=== PATIENT | female | born 1965 | race Caucasian/White ===

== ENCOUNTER → 2019-06-21 11:24 | Outpatient (CLI) | payer OTHER, SELFPAY ==
--- NOTE | ~2019-06-21 | US_ITS ---
US retroperitoneal comp 06/21/2019 11:50 Procedure: Realtime transabdominal ultrasound of the kidneys and bladder. Indication: Bilateral flank pain. History of polycystic kidneys. Comparison: No prior studies for comparison. Findings: Renal echotexture is heterogeneous bilaterally with innumerable bilateral cysts, largest on the right measuring 5.2 cm in largest on the left measuring 2.2 cm. No solid masses or hydronephrosi s identified. Bladder is unremarkable. The right kidney measures 8.8 cm and left kidney measures 11.9 cm. Bladder within normal limits. Impression: 1: Innumerable bilateral renal cysts, consistent with polycystic kidneys. Reviewed, dictated and finalized at location B. O RECORDER Impression: 1: Innumerable bilateral renal cysts, consistent with polycystic kidneys.
== END ==
DX: N20.0 Calculus of kidney (principal); N28.1 Cyst of kidney, acquired
CPT/HCPCS: 76770

== ENCOUNTER 2020-08-28 08:03 | Outpatient (CLI) | payer OTHER, SELFPAY ==
--- NOTE | ~2020-08-28 | MM_ITS ---
EXAMINATION: MM screening [facility] BI w chris HISTORY: Screening mammogram TECHNIQUE: Craniocaudal and mediolateral oblique 3-D tomosynthesis images were obtained and synthetic 2-D images were generated. CAD analysis was submitted and interpreted. COMPARISON: 07/12/2018 bilateral digital screening mammogram 06/19/2017 diagnostic right digital mammogram 06/15/2017, 05/14/2016 bilateral digital screening mammogram examinations BREAST PARENCHYMAL COMPOSITION: The breasts are extremely dense, which lowers the sensitivity of mamm ography. FINDINGS: There is no evidence of suspicious mass, calcification, or architectural distortion to sugg est malignancy in either breast. There has been no suspicious interval change. IMPRESSION: 1. No mammographic evidence of malignancy. 2. Recommend routine screening mammography in one year. BI-RADS Category 1: Negative Reviewed, dictated and finalized at location A.
== END 2020-08-28 08:04 | disposition home or self-care (01) ==
LOC: ANHIMG 08:07
PROVIDERS: Visit Provider Family Medicine
DX: Z12.31 Encounter for screening mammogram for malignant neoplasm of breast (principal)
CPT/HCPCS: 77063; 77067

== ENCOUNTER 2020-11-28 11:23 | Emergency (ER) | payer OTHER, SELFPAY ==
--- NOTE | ~2020-11-28 | XR_ITS ---
EXAMINATION: XR abdomen/kub 1V INDICATION: Right-sided flank pain TECHNIQUE: Supine view of the abdomen is obtained. COMPARISON: None FINDINGS: There are at least six stones in the mid and lower left kidney which measure up to 6 mm. Th ere are punctate stones of the right kidney. No definite stones are identified along the expected cou rses of the ureters or within the urinary bladder. Phleboliths are noted in the right pelvis. The bow el gas pattern is normal. There is mild osteoarthritis of the hips. IMPRESSION: 1. Bilateral nephrolithiasis. Reviewed, dictated and finalized at location B.
[2020-11-28 11:32] VITALS: BP 167/77; PULSE 68; RESP 16; TEMP 36.4; O2SAT 98
[2020-11-28 11:41] VITALS: BP 167/77; PULSE 68; RESP 16; TEMP 36.4; O2SAT 98
[2020-11-28] MEDS: PROMETHAZINE HCL 25 MG/ML AMPUL IM (12:26)
--- NOTE | 2020-11-28 12:26 | ED.ABDPAIN ---
HPI - Abdominal Pain General Chief Complaint: Abdominal Pain Stated Complaint: ABD PAIN/BACK PAIN/VOMITING Time Seen by Provider: 11/28/20 11:54 Source: patient and RN notes reviewed Mode of arrival: ambulatory Limitations: no limitations History of Present Illness HPI narrative: Patient presents today complaining of right lower quadrant pain since last night that now moved to the right flank. She has also been vomiting since 330 this morning multiple times. Patient has taken Zofran at 330 this morning and again at 9 AM. Reports some mild short-term relief, but still vomits several times in between doses. History of kidney stones and liver transplant. Patient spoke to her community health program coordinator, who did not want her to go to the ER, and suggested she come to urgent care instead. Denies fever or diarrhea. MD elicited complaint: abdominal pain and flank pain Related Data Home Medications Medication Instructions Recorded Confirmed folic acid 11/28/20 levothyroxine 11/28/20 tacrolimus 11/28/20 Allergies Allergy/AdvReac Type Severity Reaction Status Date / Time latex Allergy Intermediate ITCHING, Verified 09/15/16 10:11 SCABBING Penicillins Allergy Intermediate Verified 09/15/16 10:11 Review of Systems Review of Systems: CONSTITUTIONAL: Denies body aches, fever, chills, or sweats. EYES: Denies visual changes, redness, or discharge. ENT: Denies rhinorrhea, congestion, sore throat, or otalgia. CARDIOVASCULAR: Denies chest pain, palpitations, or edema. RESPIRATORY: Denies cough or dyspnea. GASTROINTESTINAL: Denies diarrhea.+ Abdominal pain, nausea, vomiting GENITOURINARY: Denies dysuria or hematuria. SKIN: Denies rash, itching, or wounds. MUSCULOSKELETAL: Denies back pain, joint pain, or myalgia. NEUROLOGIC: Denies headache, numbness, tingling, or weakness. PSYCH: Denies depression or anxiety. [facility] Past Medical History Medical History (Updated 11/28/20 @ 13:09 by Lottie Limon, JL, ) History of kidney stones History of sepsis Surgical History Surgical History (Updated 11/28/20 @ 13:09 by Lottie Limon, JL, ) Liver transplant recipient Comments At time of signature, I have reviewed and agree with nursing past medical, surgical, social and family history unless otherwise noted. Please see nursing chart for further information. There is no relevant family history pertinent to the presenting complaint Exam Narrative: GENERAL: Chronically ill-appearing, well-nourished, and in no acute distress. HEAD: Normocephalic, atraumatic. EYES: EOMI. No redness or drainage. Conjunctivae normal. ENT: Mucous membranes pink and moist. Throat normal. Uvula midline. NECK: Normal AROM. Supple. No lymphadenopathy. CHEST: No respiratory distress. Clear to auscultation. HEART: Regular rate and rhythm. No murmur appreciated. Normal peripheral pulses. ABDOMEN: Soft, nondistended, normal active bowel sounds. + Right lower quadrant abdominal tenderness. Left upper quadrant tenderness.-CVAT. Patient vomits during exam. MUSCULOSKELETAL: No bony tenderness. EXTREMITIES: Normal range of motion. No edema. SKIN: Warm, dry, no rash. Capillary refill normal. Normal skin turgor. NEURO: No focal deficits. Alert and oriented x3. Gait steady. PSYCH: Normal affect. No signs of depression or anxiety. Course Course Emergency Course: Patient states she does have improved nausea and pain after promethazine. Vital Signs Vital signs: Vital Signs Temperature 97.5 F L 11/28/20 11:32 Pulse Rate 68 11/28/20 11:32 Respiratory Rate 16 11/28/20 11:32 Blood Pressure 167/77 H 11/28/20 11:32 Pulse Oximetry 98 11/28/20 11:32 Temperature 97.5 F L 11/28/20 11:41 Pulse Rate 68 11/28/20 11:41 Respiratory Rate 16 11/28/20 11:41 Blood Pressure 167/77 H 11/28/20 11:41 Pulse Oximetry 98 11/28/20 11:41 Transfer Transfered to: [place] Transportation: Other (Private vehicle) Transfer rati
== END 2020-11-28 13:11 | disposition short-term general hospital (02) ==
PROVIDERS: Emergency Provider Nurse Practitioner; PCP Family Medicine
DX: R10.31 Right lower quadrant pain (principal); R11.2 Nausea with vomiting, unspecified
CPT/HCPCS: 74018; 81003; 87086; 87088; 96372; 99213; G0463; J2550

== ENCOUNTER 2020-11-28 13:29 | Emergency (ER) | payer OTHER, SELFPAY ==
--- NOTE | ~2020-11-28 | CT_ITS ---
EXAMINATION: CT abdomen pelvis wo con DATE: 11/28/2020 20:11 INDICATION: Right lower abdominal pain. TECHNIQUE: Computed tomography (CT) of the abdomen and pelvis was performed without intravenous contr ast. Automated exposure control and iterative reconstruction technique were employed. The dose-length product was 332.30 mGy-cm. COMPARISON: None FINDINGS: Minimal atelectasis at the posterior sulcus of the left lower lobe. Heart size is normal. No pericard ial or pleural effusion. Prominent dilation of the common bile duct which measures up to 1.6 cm in ma ximal diameter. Cholecystectomy clips the gallbladder fossa. No definitive intrahepatic biliary ducta l dilation. Spleen, pancreas and bilateral adrenal glands are normal. Multiple bilateral renal cysts including several hyperdense proteinaceous/hemorrhagic cyst consistent with autosomal dominant polycy stic kidney disease. Bilateral nephrolithiasis with a few stones in both kidneys, the largest measuri ng up to 5-6 mm. There is an obstructing 3-4 mm stone in the distal right ureter approximately 3 cm f rom the ureterovesicular junction. There is mild right hydroureteronephrosis. Bladder, uterus and bertha ateral adnexa are unremarkable. There are few scattered colonic diverticula without adjacent inflamma tory change to suggest diverticulitis. Small bowel and appendix are normal. Small amount of likely ph ysiologic free fluid in the pelvis. No pathologically enlarged abdominal or pelvic lymphadenopathy. M ild thoracolumbar spondylosis. Right supra-acetabular bone island. IMPRESSION: 1. Bilateral nephrolithiasis with 3 to 4 mm distal right ureteral stone with mild right hydroureteron ephrosis. 2. Multiple simple and complex proteinaceous/hemorrhagic cysts at both kidneys consistent with autoso mal dominant polycystic kidney disease. 3. Common bile duct dilated to 15 mm which could be related to prior cholecystectomy and comparison m leena but would correlate with liver function tests and if clinically indicated could consider MRCP for further evaluation. Reviewed, dictated and finalized at location A. IMPRESSION: 1. Bilateral nephrolithiasis with 3 to 4 mm distal right ureteral stone with mi ld right hydroureteronephrosis. 2. Multiple simple and complex proteinaceous/hemorrhagic cysts at both kidneys consistent with autosomal dominant polycystic kidney disease. 3. Common bile duct dilated to 15 mm which could be related to prior cholecyste ctomy and comparison made but would correlate with liver function tests and if clinically indicated could consider MRCP for further evaluation.
[2020-11-28 13:42] VITALS: BP 167/91; PULSE 65; RESP 16; TEMP 36.6; O2SAT 100
[2020-11-28 14:00] LABS: Basophils Percent Auto 0.3 % (0.2-1.2); Eosinophils Percent Auto 0.1 % (0-4.4); Hematocrit 37.6 % (37.0-47.0); Hemoglobin 12.3 g/dL (12.0-15.0); Immature Granulocyte Absolute 0.05 K/mm3 (0.00-0.031); Immature Granulocyte Percent A 0.6 % (0-0.5); Lymphocytes Absolute Auto 0.72 K/mm3 (0.9-3.2); Mean Corpuscular HGB Conc 32.7 g/dl (32-36); Mean Corpuscular Hemoglobin 29.4 pg (26-34); Monocytes Absolute Auto 0.3 K/mm3 (0.1-0.6); Monocytes Percent Auto 2.8 % (2.6-8.5); Neutrophils Percent Auto 88.2 % (45.5-73.1); Platelet Count Result 136 k/mm3 (150-375); Red Blood Count 4.18 M/mm3 (4.2-5.4); Red Cell Distribution Width 11.9 % (11.5-14.5)
[2020-11-28 14:09] LABS: Alanine Aminotransferase 36 U/L (4-35); Alkaline Phosphatase 71 U/L (38-126); Anion Gap 12 mmol/L (8-16); Aspartate Amino Transferase 33 U/L (14-36); Bilirubin,Total 0.6 mg/dL (0.2-1.3); Blood Urea Nitrogen 36 mg/dL (7-17); Calcium 9.9 mg/dL (8.4-10.2); Carbon Dioxide 24 mmol/L (22-30); Chloride 100 mmol/L (98-107); Estimated CRCL calculation 24 ml/min; Estimated Glomerular Filt Rate 25; Glucose 123 mg/dL (65-110); Lipase 150 U/L (23-300); Potassium 4.6 mmol/L (3.4-5.0); Sodium 136 mmol/L (137-145)
[2020-11-28 19:26] VITALS: BP 133/99; PULSE 79; RESP 18; TEMP 37.3; O2SAT 98
--- NOTE | 2020-11-28 19:45 | ED.ABDPAIN ---
HPI - Abdominal Pain General Chief Complaint: Abdominal Pain Stated Complaint: abdominal pain Time Seen by Provider: 11/28/20 19:00 Source: patient and RN notes reviewed Mode of arrival: ambulatory Limitations: no limitations History of Present Illness HPI narrative: This is 54 year old female with history of polycystic kidney disease and liver transplant who presents for evaluation of right lower abdominal pain. She developed pain last night, and her pain has been constant and gradually worsening. She developed nausea and vomiting 3 hours after her onset of pain. She has not taken anything for her pain. She thinks it is possible that she has a urinary tract infection. She reports intermittent suprapubic sharp pain and possible dysuria. She denies fever or chills. Related Data Home Medications Medication Instructions Recorded Confirmed folic acid 11/28/20 levothyroxine 11/28/20 tacrolimus 11/28/20 Allergies Allergy/AdvReac Type Severity Reaction Status Date / Time latex Allergy Intermediate ITCHING, Verified 09/15/16 10:11 SCABBING Penicillins Allergy Intermediate Verified 09/15/16 10:11 Review of Systems Review of Systems: All systems reviewed & are unremarkable except as noted in HPI and below PMFSH Past Medical History Medical History History of kidney stones History of sepsis Surgical History Surgical History Liver transplant recipient Social History Social History Smoking status: Never smoker Exam Const: General: no acute distress and alert Orientation/consciousness: patient oriented x3 Eyes: EOM: EOMs intact bilaterally Chest: Chest palpation & inspection: normal inspection of the chest Resp: Effort & Inspection: normal respiratory effort and no retractions Auscultation: clear to auscultation bilaterally Cardio: Rate: regular rate Rhythm: regular rhythm Heart sounds: no murmurs GI: GI Palp: Yes Soft to palpation, Yes Tenderness to palpation present (GI) and No Guarding due to palpation present (GI) Auscultation: normal bowel sounds Back/Spine/Pelvis: Back: no CVA tenderness Skin: General skin exam: normal color Rashes: no rashes Neuro: General: patient oriented x3, moves all extremities and CN's II-XI intact bilaterally Psych: Mental Status: mental status grossly normal Affect: normal affect Course Reevaluation(s) Reevaluation #1: I have discussed with patient CT showing distal right ureteral stone. She reports history of multiple kidney stones in which she has been able to pass. Her pain has improved. She states she is comfortable with discharge home to pass stone. Date: 11/28/20 Time: 21:00 Vital Signs Vital signs: Vital Signs Temperature 97.9 F 11/28/20 13:42 Pulse Rate 65 11/28/20 13:42 Respiratory Rate 16 11/28/20 13:42 Blood Pressure 167/91 H 11/28/20 13:42 Pulse Oximetry 100 11/28/20 13:42 Temperature 99.2 F 11/28/20 19:26 Pulse Rate 71 11/28/20 20:33 Respiratory Rate 20 11/28/20 20:33 Blood Pressure 159/84 H 11/28/20 20:33 Pulse Oximetry 100 11/28/20 20:33 MDM - Abdominal Pain Lab Data Attestation: I reviewed the patient's lab results. Result diagrams: 11/28/20 13:52 11/28/20 13:52 Labs: Lab Results 11/28/20 11/28/20 11/28/20 Range/Units 13:52 13:52 19:35 WBC 9.0 (4.5-10.0) K/mm3 RBC 4.18 L (4.2-5.4) M/mm3 Hgb 12.3 (12.0-15.0) g/dL Hct 37.6 (37.0-47.0) % MCV 90.0 (80-100) fl MCH 29.4 (26-34) pg MCHC 32.7 (32-36) g/dl RDW 11.9 (11.5-14.5) % Plt Count 136 L (150-375) k/mm3 MPV 9.0 (7.4-10.4) fl Immature Gran % (Auto) 0.6 H (0-0.5) % Neut % (Auto) 88.2 H (45.5-73.1) % Lymph % (Auto) 8.0 L (18.3-44.2) % [place] % (Auto) 2.8 (2.6-8.5)
[2020-11-28 19:48] LABS: Add Urine Microscopic? YES; Appearance Urine Clear (Clear); Bilirubin Urine Negative (Negative); Blood Urine 2+ (Negative); Color Urine Yellow (Yellow); Glucose Urine UA Negative (Negative); Ketones Urine 1+ mg/dL (Negative); Leukocyte Esterase Ur Negative LEU/UL (Negative); Mucus Urine Rare /lpf; Nitrate Urine Negative (Negative); Protein Urine 2+ mg/dL (Negative); Specific Grav Ur 1.014 (1.001-1.035); Squamous Epithelial Cell Urine Rare /hpf (Few); Urobilinogen Urine Negative mg/dL (<2.0); WBC Urine 0-3 /hpf
[2020-11-28] MEDS: SODIUM CHLORIDE 0.9% IV 1,000 ML 999 ML IV CONT (19:59)
[2020-11-28] MEDS: ONDANSETRON INJ 4 MG/2 ML VIAL IV PUSH (19:59)
[2020-11-28] MEDS: MORPHINE SULFATE (*CRX) 4 MG/ML INJ IV PUSH (20:00)
[2020-11-28 20:33] VITALS: BP 159/84; PULSE 71; RESP 20; O2SAT 100
[2020-11-28] MEDS: TAMSULOSIN HCL 0.4 MG CAPSULE PO (21:49)
== END 2020-11-28 22:14 | disposition home or self-care (01) ==
PROVIDERS: Emergency Medicine; Emergency Provider General Practice; PCP Family Medicine
DX: N13.2 Hydronephrosis with renal and ureteral calculous obstruction (principal); Q61.2 Polycystic kidney, adult type; Z94.4 Liver transplant status; Z87.442 Personal history of urinary calculi
CPT/HCPCS: 36415; 74018; 74176; 80053; 81001; 81003; 81025; 83690; 85025; 87086; 87088; 96361; 96372; 96374; 96375; 99284; A9270; J2270; J2405; J2550; J7030

== ENCOUNTER 2020-12-16 20:43 | Emergency (ER) | payer OTHER, SELFPAY ==
[2020-12-16] VITALS (8 sets, daily range): BP systolic 121–131; BP diastolic 62–82; PULSE 60–70; RESP 14–19; TEMP 36.5–36.6; O2SAT 97–100
--- NOTE | ~2020-12-16 | CT_ITS ---
EXAMINATION: CT abdomen pelvis wo con DATE: 12/16/2020 21:37 INDICATION: Left-sided flank pain TECHNIQUE: Computed tomography (CT) of the abdomen and pelvis was performed without intravenous contr ast. The dose-length product (DLP) was 179.64 mGy-cm. Automated exposure control and iterative recons truction technique were employed. COMPARISON: 11/28/2020 FINDINGS: Minimal dependent atelectasis is present in the lung bases. The heart size is normal. The l iver, spleen, pancreas, and adrenal glands are normal. The gallbladder is surgically absent. There is mild enlargement of the common bile duct and central intrahepatic ducts which is likely due to post cholecystectomy state. Nonobstructing stones of the right kidney measure up to 7 mm. Nonobstructing s tones of the left kidney measure up to 8 mm. There are multiple mixed attenuation cystic lesions of t he kidneys with fluid and, hemorrhagic, and soft tissue density, consistent with simple, hemorrhagic, and proteinaceous cysts. There is no hydronephrosis or hydroureter. The previously described right d istal ureteral stone is no longer evident, consistent with interval passage or treatment. The appendi x is normal. No pathologically enlarged abdominal or pelvic lymph nodes are identified. There is no f ree intraperitoneal gas or evidence of bowel obstruction. There is mild lumbar spondylosis. IMPRESSION: 1. Nonobstructing bilateral nephrolithiasis. 2. Findings consistent with autosomal dominant polycystic kidney disease. Reviewed, dictated and finalized at location A.
--- NOTE | 2020-12-16 21:18 | ED.ABDPAIN ---
HPI - Abdominal Pain General Chief Complaint: Abdominal Pain Stated Complaint: left side flank pain Time Seen by Provider: 12/16/20 21:07 Source: RN notes reviewed History of Present Illness HPI narrative: Patient presents emergency department from home for left-sided flank pain. Patient states pain began approximately 4 hours ago pain is located left flank and radiates around to the left side of the abdomen described as sharp and stabbing in nature associate with nausea. Patient states he did take a Zofran at home but not taking pain medication states she has a history of kidney stones she denies any fevers or chills chest pain shortness of breath or any other symptoms she does have a history of polycystic kidney disease and liver transfer Related Data Home Medications Medication Instructions Recorded Confirmed folic acid 11/28/20 levothyroxine 11/28/20 tacrolimus 11/28/20 Allergies Allergy/AdvReac Type Severity Reaction Status Date / Time latex Allergy Intermediate ITCHING, Verified 09/15/16 10:11 SCABBING Penicillins Allergy Intermediate Unknown Verified 12/16/20 21:02 amoxicillin Allergy Unknown Verified 12/16/20 21:02 Review of Systems Review of Systems: Gen.: Denies fevers or chills ENT: Denies congestion Respiratory: Denies shortness of breath or cough CV: Denies chest pain or palpitations GI: See HPI denies burning, urgency, frequency or hematuria Musculoskeletal: Denies back pain or muscle pain Neuro: Denies numbness, tingling, weakness or focal weakness Skin: Denies rash Except as documented, all other systems reviewed and negative PMFSH Past Medical History Medical History History of kidney stones History of sepsis Surgical History Surgical History Liver transplant recipient Social History Social History Smoking status: Never smoker Gender identity (if verbalized by the patient): Female Exam Narrative: APPEARANCE: No acute distress, nontoxic, resting in bed HEENT: Normocephalic, atraumatic, OMM RESPIRATORY: No respiratory distress, clear to auscultation bilaterally with no rhonchi wheezing or rales CARDIOVASCULAR: RRR s murmur ABDOMINAL: Soft nondistended tender palpation left lower quadrant left lower quadrant no tenderness right upper quadrant right lower quadrant rebound or guarding, left flank tenderness MUSCULOSKELETAl: Moves all extremities. No clubbing, cyanosis or edema. NEURO: Awake and alert. Following commands, speech normal, no focal deficits SKIN:: Warm, dry. Normal Color PSYCHIATRIC: Normal affect/mood Course Course Emergency Course: Reviewed old records patient's current creatinine and platelets are consistent with prior Discussed with patient her retro-orbital UTI with the patient being a transplant patient will start on antibiotic she states that she has been on Cipro before and this approved by her transplant team based on her creatinine clearance will do 250 daily Patient states that they are feeling much better at this time. States abdominal pain has improved.. Repeat abdominal exam shows the patient's abdomen to be soft with no surgical abdomen present . discussed with patient results of workup and diagnosis. Discussed need for follow-up with primary care physician, reasons to return to the emergency department in proper use of medication. Patient understands and agrees to current treatment plan Vital Signs Vital signs: Vital Signs Temperature 97.8 F 12/16/20 20:56 Pulse Rate 70 12/16/20 20:56 Respiratory Rate 16 12/16/20 20:56 Blood Pressure 131/82 12/16/20 20:56 Pulse Oximetry 98 12/16/20 20:56 Temperature 97.8 F 12/16/20 20:56 Pulse Rate 64 12/16/20 22:01 Respiratory Rate 17 12/16/20 22:01 Blood Pressure 124/67 12/16/20 22:01 Pulse Oximetry 97
--- NOTE | 2020-12-16 21:31 | PC.NURSE ---
pt to ED c/o left flank pain wrapping around to abd. hx of kidney stones.
[2020-12-16 21:34] LABS: Add Urine Microscopic? YES; Appearance Urine Clear (Clear); Bacteria Urine Trace /hpf; Bilirubin Urine Negative (Negative); Blood Urine 2+ (Negative); Color Urine Yellow (Yellow); Glucose Urine UA Negative (Negative); Ketones Urine Negative (Negative); Leukocyte Esterase Ur Trace LEU/UL (Negative); Mucus Urine Rare /lpf; Nitrate Urine Negative (Negative); Protein Urine 1+ mg/dL (Negative); Squamous Epithelial Cell Urine Few /hpf (Few); Urobilinogen Urine Negative mg/dL (<2.0)
[2020-12-16 21:52] LABS: Basophils Percent Auto 0.5 % (0.2-1.2); Eosinophils Absolute Auto 0.2 K/mm3 (0-0.3); Eosinophils Percent Auto 1.8 % (0-4.4); Hematocrit 33.5 % (37.0-47.0); Hemoglobin 11.2 g/dL (12.0-15.0); Immature Granulocyte Absolute 0.03 K/mm3 (0.00-0.031); Immature Granulocyte Percent A 0.4 % (0-0.5); Lymphocytes Absolute Auto 1.31 K/mm3 (0.9-3.2); Lymphocytes Percent Auto 15.8 % (18.3-44.2); Mean Corpuscular HGB Conc 33.4 g/dl (32-36); Mean Corpuscular Hemoglobin 30.2 pg (26-34); Mean Corpuscular Volume 90.3 fl (80-100); Mean Platelet Volume 8.5 fl (7.4-10.4); Monocytes Absolute Auto 0.4 K/mm3 (0.1-0.6); Monocytes Percent Auto 4.9 % (2.6-8.5); Neutrophils Absolute Auto 6.4 K/mm3 (1.3-6.7); Neutrophils Percent Auto 76.6 % (45.5-73.1); Platelet Count Result 135 k/mm3 (150-375); Red Blood Count 3.71 M/mm3 (4.2-5.4); Red Cell Distribution Width 11.9 % (11.5-14.5); White Blood Count 8.3 K/mm3 (4.5-10.0)
[2020-12-16 22:04] LABS: Anion Gap 9 mmol/L (8-16); Blood Urea Nitrogen 44 mg/dL (7-17); Calcium 9.1 mg/dL (8.4-10.2); Carbon Dioxide 22 mmol/L (22-30); Chloride 106 mmol/L (98-107); Estimated CRCL calculation 25 ml/min; Estimated Glomerular Filt Rate 26; Glucose 101 mg/dL (65-110); Potassium 4.3 mmol/L (3.4-5.0); Sodium 137 mmol/L (137-145)
[2020-12-16] MEDS: SODIUM CHLORIDE 0.9% IV 1,000 ML 999 ML IV CONT (22:08)
--- NOTE | 2020-12-16 22:08 | PC.NURSE ---
Pt declines pain medication at this time. currently rates pain 04/29. pt educated that she can request ordered pain med at any time.
[2020-12-16 22:59] LABS: Alanine Aminotransferase 23 U/L (4-35); Albumin Level 4.5 g/dL (3.5-5.1); Alkaline Phosphatase 60 U/L (38-126); Aspartate Amino Transferase 27 U/L (14-36); Bilirubin,Total 0.6 mg/dL (0.2-1.3); Lipase 178 U/L (23-300)
[2020-12-16] MEDS: CIPROFLOXACIN 250 MG TABLET PO (23:32)
== END 2020-12-16 23:40 | disposition home or self-care (01) ==
PROVIDERS: Emergency Provider Emergency Medicine; PCP Family Medicine
DX: N39.0 Urinary tract infection, site not specified (principal); R10.32 Left lower quadrant pain; Q61.3 Polycystic kidney, unspecified; Z94.4 Liver transplant status; Z87.442 Personal history of urinary calculi; N20.0 Calculus of kidney
CPT/HCPCS: 36415; 74176; 80048; 80076; 81001; 81025; 83690; 85025; 96360; 99284; A9270; J7030

== ENCOUNTER 2021-09-02 07:49 | Outpatient (CLI) | payer OTHER, SELFPAY ==
--- NOTE | ~2021-09-02 | MM_ITS ---
EXAMINATION: MM screening [facility] BI w chris HISTORY: Screening mammogram TECHNIQUE: Craniocaudal and mediolateral oblique 3-D tomosynthesis images were obtained and synthetic 2-D images were generated. CAD analysis was submitted and interpreted. COMPARISON: 08/28/2020, 07/12/2018 BREAST PARENCHYMAL COMPOSITION: The breasts are extremely dense, which lowers the sensitivity of mamm ography. FINDINGS: There is no suspicious mass, calcification, or architectural distortion to suggest malignan cy in either breast. There has been no suspicious interval change. IMPRESSION: 1. No mammographic evidence of malignancy. 2. Recommend routine screening mammography in one year. BI-RADS Category 1: Negative Reviewed, dictated and finalized at location A.
== END 2021-09-02 07:50 | disposition home or self-care (01) ==
LOC: ANHIMG 07:51
PROVIDERS: PCP Family Medicine; Visit Provider Family Medicine
DX: Z12.31 Encounter for screening mammogram for malignant neoplasm of breast (principal)
CPT/HCPCS: 77063; 77067

== ENCOUNTER 2021-12-02 09:58 | Emergency (ER) | payer OTHER, SELFPAY ==
[2021-12-02] VITALS (19 sets, daily range): BP systolic 145–190; BP diastolic 71–85; PULSE 64–71; RESP 16–20; TEMP 37.1; O2SAT 93–100
--- NOTE | ~2021-12-02 | CT_ITS ---
EXAMINATION: CT abdomen pelvis wo con DATE: 12/02/2021 10:44 INDICATION: Nausea and vomiting. History of stones. TECHNIQUE: Computed tomography (CT) of the abdomen and pelvis was performed without intravenous contr ast. The dose-length product was 217.47 mGy-cm. Automated exposure control and iterative reconstructi on technique were employed. COMPARISON: CT dated 12/16/2020. FINDINGS: Lung bases are unremarkable. No significant pleural or pericardial effusion. Gallbladder is absent. There is enlargement of the common bile duct. There are innumerable bilateral renal cysts of varying density some of which are complex, compatible with adult polycystic kidney disease. There ar e nonobstructing bilateral renal stones. No acute osseous abnormality. Small bone island right ilium. The liver, spleen, pancreas, and adrenal glands are unremarkable. Nonobstructive bowel pattern. No f ree air or free fluid. No significant vascular abnormality. No lymphadenopathy. IMPRESSION: 1. Nonobstructing bilateral nephrolithiasis. 2: Autosomal dominant polycystic kidney disease.. Reviewed, dictated and finalized at location B.
--- NOTE | 2021-12-02 10:13 | ED.ABDPAIN ---
HPI - Abdominal Pain General Chief Complaint: Abdominal Pain Stated Complaint: possible kidney stones Time Seen by Provider: 12/02/21 09:59 Source: RN notes reviewed History of Present Illness HPI narrative: Patient presents emergency department from home for left flank pain. Patient states pain began suddenly at 6:30 AM this morning. The pain is located left flank and goes left side the abdomen described as sharp and stabbing. Associate with nausea vomiting. States she has a history of previous kidney stones and feels similar to prior. Denies any fevers or chills chest pain shortness of breath diarrhea or any other symptoms. States she not taking medication for the symptoms Related Data Home Medications Medication Instructions Recorded Confirmed folic acid 1 mg tablet 11/28/20 levothyroxine 50 mcg tablet 11/28/20 tacrolimus 1 mg capsule, 11/28/20 immediate-release Allergies Allergy/AdvReac Type Severity Reaction Status Date / Time latex Allergy Intermediate ITCHING, Verified 09/15/16 10:11 SCABBING Penicillins Allergy Intermediate Unknown Verified 12/16/20 21:02 amoxicillin Allergy Unknown Verified 12/16/20 21:02 Review of Systems Review of Systems: Gen.: Denies fevers or chills ENT: Denies congestion Respiratory: Denies shortness of breath or cough CV: Denies chest pain or palpitations GI: See HPI Musculoskeletal: Denies back pain or muscle pain Neuro: Denies numbness, tingling, weakness or focal weakness Skin: Denies rash Except as documented, all other systems reviewed and negative PMFSH Past Medical History Medical History History of kidney stones History of sepsis Surgical History Surgical History Liver transplant recipient Social History Social History Smoking status: Never smoker Gender identity (if verbalized by the patient): Female Exam Narrative: APPEARANCE: No acute distress, nontoxic, resting in bed HEENT: Normocephalic, atraumatic, OMM RESPIRATORY: No respiratory distress, clear to auscultation bilaterally with no rhonchi wheezing or rales CARDIOVASCULAR: RRR s murmur ABDOMINAL: Soft nondistended tender palpation left lower quadrant left lower quadrant no tenderness right upper quadrant right lower quadrant no rebound or guarding, left flank tenderness MUSCULOSKELETAl: Moves all extremities. No clubbing, cyanosis or edema. NEURO: Awake and alert. Following commands, speech normal, no focal deficits SKIN:: Warm, dry. Normal Color PSYCHIATRIC: Normal affect/mood Course Course Emergency Course: Patient states that they are feeling much better at this time. States abdominal pain has resolved. Repeat abdominal exam shows the patient's abdomen to be soft and nontender. Discussed with patient results of workup and diagnosis. Discussed need for follow-up with primary care physician, reasons to return to the emergency department in proper use of medication. Patient understands and agrees to current treatment plan Vital Signs Vital signs: Vital Signs Pulse Oximetry 98 12/02/21 10:03 Temperature 98.8 F 12/02/21 10:10 Pulse Rate 64 12/02/21 10:10 Respiratory Rate 20 12/02/21 10:10 Blood Pressure 161/85 H 12/02/21 13:32 Pulse Oximetry 93 12/02/21 14:00 Oxygen Delivery Room Air 12/02/21 10:10 MDM - Abdominal Pain MDM Narrative Medical decision making narrative: Patient's abdomen is soft without significant pain or signs of surgical abdomen on serial exams. Lab and x-ray evaluations are reviewed and patient is felt to be a reasonable candidate for outpatient management. Patient was instructed as to limitations of x-ray and laboratory evaluation and encouraged to return to ED or primary physician for repeat exam in 12 hours if continued or worsening pain Lab Data Result diagrams:
[2021-12-02 10:26] LABS: Basophils Percent Auto 0.5 % (0.2-1.2); Eosinophils Absolute Auto 0.2 K/mm3 (0-0.3); Eosinophils Percent Auto 1.9 % (0-4.4); Hematocrit 34.5 % (37.0-47.0); Hemoglobin 11.3 g/dL (12.0-15.0); Immature Granulocyte Absolute 0.02 K/mm3 (0.00-0.031); Immature Granulocyte Percent A 0.2 % (0-0.5); Lymphocytes Absolute Auto 1.14 K/mm3 (0.9-3.2); Lymphocytes Percent Auto 13.7 % (18.3-44.2); Mean Corpuscular HGB Conc 32.8 g/dl (32-36); Mean Corpuscular Hemoglobin 30.3 pg (26-34); Mean Corpuscular Volume 92.5 fl (80-100); Mean Platelet Volume 9.2 fl (7.4-10.4); Monocytes Absolute Auto 0.3 K/mm3 (0.1-0.6); Monocytes Percent Auto 4.1 % (2.6-8.5); Neutrophils Absolute Auto 6.6 K/mm3 (1.3-6.7); Neutrophils Percent Auto 79.6 % (45.5-73.1); Platelet Count Result 130 k/mm3 (150-375); Red Blood Count 3.73 M/mm3 (4.2-5.4); Red Cell Distribution Width 11.6 % (11.5-14.5); White Blood Count 8.3 K/mm3 (4.5-10.0)
[2021-12-02] MEDS: SODIUM CHLORIDE 0.9% IV 1,000 ML 999 ML IV CONT (10:26)
[2021-12-02] MEDS: KETOROLAC 30 MG/ML VIAL (*BKC) IV PUSH (10:27)
[2021-12-02] MEDS: ONDANSETRON INJ 4 MG/2 ML VIAL IV PUSH (10:27)
[2021-12-02 10:33] LABS: Appearance Urine Slightly Cloudy (Clear); Bilirubin Urine Negative (Negative); Blood Urine 2+ (Negative); Glucose Urine UA Negative (Negative); Ketones Urine Negative (Negative); Leukocyte Esterase Ur Negative LEU/UL (Negative); Nitrate Urine Negative (Negative); Protein Urine 2+ mg/dL (Negative); Specific Grav Ur 1.015 (1.001-1.035); Urobilinogen Urine 0.2 mg/dL (<2.0); pH Urine 5.5 (5.0-9.0)
[2021-12-02 10:35] LABS: Add Urine Microscopic? YES; Color Urine Light Yellow (Yellow)
[2021-12-02 10:36] LABS: Alanine Aminotransferase 19 U/L (6-35); Albumin Level 4.8 g/dL (3.5-5.1); Alkaline Phosphatase 57 U/L (38-126); Anion Gap 9 mmol/L (8-16); Aspartate Amino Transferase 23 U/L (14-36); Bilirubin,Total 0.5 mg/dL (0.2-1.3); Blood Urea Nitrogen 42 mg/dL (7-17); Calcium 9.4 mg/dL (8.4-10.2); Carbon Dioxide 29 mmol/L (22-30); Chloride 102 mmol/L (98-107); Estimated Glomerular Filt Rate 24; Glucose 118 mg/dL (65-110); Potassium 4.3 mmol/L (3.4-5.0); Sodium 140 mmol/L (137-145)
[2021-12-02 10:49] LABS: Mucus Urine Rare /lpf; Squamous Epithelial Cell Urine Rare /hpf (Few); WBC Urine 0-3 /hpf
--- NOTE | 2021-12-02 11:07 | PC.NURSE ---
Patient report received from EBAR Browning. All questions answered and care of patient assumed.
--- NOTE | 2021-12-02 14:09 | PC.NURSE ---
Patient PO challenged as per verbal order from Dr. Quiñones.
== END 2021-12-02 14:53 | disposition home or self-care (01) ==
PROVIDERS: Emergency Provider Emergency Medicine; PCP Family Medicine
DX: N18.9 Chronic kidney disease, unspecified (principal); R11.2 Nausea with vomiting, unspecified; R10.32 Left lower quadrant pain; Z87.442 Personal history of urinary calculi
CPT/HCPCS: 36415; 74176; 80053; 81001; 85025; 96374; 96375; 99284; J1885; J2405; J7030

== ENCOUNTER → 2022-10-09 13:54 | Outpatient (CLI) | payer OTHER, SELFPAY ==
--- NOTE | ~2022-10-09 | US_ITS ---
US retroperitoneal comp 10/09/2022 14:24 Procedure: Realtime transabdominal ultrasound of the kidneys and bladder. Indication: Acute renal insufficiency Comparison: 06/21/2019 Findings: Renal echotexture is normal bilaterally without hydronephrosis, contour deforming mass or r enal calculus. There are multiple bilateral renal cysts, largest on the right measuring 1.9 cm and on the left measuring 3.1 cm. The right kidney measures 10.7 cm and left kidney measures 14.2 cm. Blad brady within normal limits. Impression: 1: Bilateral renal cysts, consistent with polycystic kidney disease. Reviewed, dictated and finalized at location L. Impression: 1: Bilateral renal cysts, consistent with polycystic kidney disease.
== END ==
PROVIDERS: PCP Family Medicine
DX: N17.9 Acute kidney failure, unspecified (principal); N28.1 Cyst of kidney, acquired
CPT/HCPCS: 76770

== ENCOUNTER → 2022-10-15 14:37 | Outpatient (CLI) | payer OTHER, SELFPAY ==
--- NOTE | ~2022-10-15 | MR_ITS ---
MRA HEAD History: Aneurysm Technique: 3D time of flight MRA of the head is performed. Findings: The right and left distal vertebral arteries and the basilar and posterior cerebral arterie s are normal. Right and left distal internal carotid arteries and anterior and middle cerebral arteri es are normal. There is no aneurysm, stenosis, or occlusion. Impression: No occlusion, stenosis, or aneurysm. Reviewed, dictated and finalized at location . Impression: No occlusion, stenosis, or aneurysm.
== END ==
PROVIDERS: PCP Family Medicine
DX: I67.1 Cerebral aneurysm, nonruptured (principal)
CPT/HCPCS: 70544

== ENCOUNTER → 2022-11-01 07:35 | Outpatient (CLI) | payer OTHER, SELFPAY ==
--- NOTE | ~2022-11-01 | MR_ITS ---
EXAMINATION: MR abdomen wo con DATE: 11/01/2022 11:48 INDICATION: Polycystic kidney disease. TECHNIQUE: Magnetic resonance imaging (MRI) of the abdomen was performed without intravenous contrast . COMPARISON: CT abdomen and pelvis 12/02/2021 FINDINGS: There are trace pleural effusions. There is a 6 mm cyst in the liver. The gallbladder is absent. The common duct is normal and measures 10 mm. The spleen, pancreas, and adrenal glands are normal. There are innumerable cysts and hemorrhagic cysts in the kidneys measuring up to 3.1 cm on the left. Right kidney measures 7.9 x 15.3 x 7.8 cm. Left kidney measures 7.6 x 13.5 x 6.5 cm. There are no dilated l oops of bowel. There is a small volume of ascites. IMPRESSION: 1. Polycystic kidney disease. 2. Small volume of ascites. Reviewed, dictated and finalized at location E.
== END ==
DX: Q61.3 Polycystic kidney, unspecified (principal); R18.8 Other ascites
CPT/HCPCS: 74181

== ENCOUNTER 2022-12-03 14:20 | Outpatient (CLI) | payer OTHER, SELFPAY ==
--- NOTE | ~2022-12-03 | MM_ITS ---
EXAMINATION: MM screening mally BI w chris HISTORY: Screening TECHNIQUE: Craniocaudal and mediolateral oblique 3-D tomosynthesis images were obtained and synthetic 2-D images were generated. CAD analysis was submitted and interpreted. COMPARISON: Comparison to multiple prior studies sequentially, with oldest reviewed study dated 05/14. BREAST PARENCHYMAL COMPOSITION: The breasts are extremely dense, which lowers the sensitivity of mamm ography FINDINGS: There is no evidence of suspicious mass, calcification, or architectural distortion to sugg est malignancy in either breast. There has been no suspicious interval change. IMPRESSION: 1. No mammographic evidence of malignancy. 2. Recommend routine screening mammography in one year. BI-RADS Category 1: Negative Reviewed, dictated and finalized at location A.
== END 2022-12-03 14:21 | disposition home or self-care (01) ==
LOC: ANHIMG 14:22
PROVIDERS: PCP Family Medicine; Visit Provider Family Medicine
DX: Z12.31 Encounter for screening mammogram for malignant neoplasm of breast (principal)
CPT/HCPCS: 77063; 77067

== ENCOUNTER → 2023-01-16 11:19 | Outpatient (CLI) | payer OTHER, SELFPAY ==
--- NOTE | ~2023-01-16 | US_ITS ---
EXAMINATION: US transvaginal DATE: 01/16/2023 12:02 INDICATION: Ovarian cyst TECHNIQUE: Multiple endovaginal sonographic images of the pelvis were obtained. COMPARISON: None. FINDINGS: The uterus measures 6.4 x 3.3 x 4.2 cm. The endometrial complex measures 2 mm. The right ov monster measures 2.5 x 2.3 x 2.5 cm and contains a 2.2 cm cyst. The left ovary measures 1.8 x 1.7 x 1.4 c m. There is normal vascular flow in the ovaries. There is a small amount of free fluid in the pelvis and right adnexa. IMPRESSION: 1. 2.2 cm simple cyst of the right ovary. 2. Small volume of free fluid in the pelvis. Reviewed, dictated and finalized at location F.
== END ==
PROVIDERS: PCP Family Medicine
DX: N83.201 Unspecified ovarian cyst, right side (principal)
CPT/HCPCS: 76830

== ENCOUNTER 2023-07-31 09:39 | Outpatient (CLI) | payer OTHER, SELFPAY ==
--- NOTE | ~2023-07-31 | XR_ITS ---
EXAM: XR ankle LT min 3V DATE: 07/31/2023 09:53 HISTORY: M25.579 - Pain in unspecified ankle and joints of unspeci... . COMPARISON: None available. FINDINGS: Decreased mineralization. No fracture or dislocation. No lytic or blastic lesion. Joint sp aces are maintained. Plantar enthesopathy. No erosion or periosteal change. Soft tissues within yahaira l limits. IMPRESSION: Osteopenia. Plantar enthesopathy. Reviewed, dictated and finalized at location K.
== END 2023-07-31 09:40 ==
LOC: MICIMG 09:41
PROVIDERS: PCP Family Medicine; Visit Provider Physician Assistant
DX: M85.872 Other specified disorders of bone density and structure, left ankle and foot (principal); M77.32 Calcaneal spur, left foot
CPT/HCPCS: 73610

== ENCOUNTER 2023-12-07 13:27 | Outpatient (CLI) | payer OTHER, SELFPAY ==
--- NOTE | ~2023-12-07 | MM_ITS ---
EXAMINATION: MM screening mally BI w chris HISTORY: Screening TECHNIQUE: Craniocaudal and mediolateral oblique 3-D tomosynthesis images were obtained and synthetic 2-D images were generated. CAD analysis was submitted and interpreted. COMPARISON: Comparison to multiple prior studies sequentially, with oldest reviewed study dated 06/15. BREAST PARENCHYMAL COMPOSITION: Dense: The breasts are extremely dense, which lowers the sensitivity of mammography. FINDINGS: There is no evidence of suspicious mass, calcification, or architectural distortion to sugg est malignancy in either breast. There has been no suspicious interval change. IMPRESSION: 1. No mammographic evidence of malignancy. 2. Recommend routine screening mammography in one year. BI-RADS Category 1: Negative Reviewed, dictated and finalized at location B.
== END 2023-12-07 13:28 | disposition home or self-care (01) ==
LOC: ANHIMG 13:28
PROVIDERS: PCP Family Medicine; Visit Provider Family Medicine
DX: Z12.31 Encounter for screening mammogram for malignant neoplasm of breast (principal)
CPT/HCPCS: 77063; 77067

== ENCOUNTER 2025-01-11 14:13 | Outpatient (CLI) | payer OTHER, SELFPAY ==
--- NOTE | ~2025-01-11 | MM_ITS ---
EXAMINATION: MM screening mally BI w chris HISTORY: Screening TECHNIQUE: Craniocaudal and mediolateral oblique 3-D tomosynthesis images were obtained and synthetic 2-D images were generated. CAD analysis was submitted and interpreted. COMPARISON: 12/03/2022 BREAST PARENCHYMAL COMPOSITION: The breasts are extremely dense, which lowers the sensitivity of mammography. FINDINGS: There is no evidence of suspicious mass, calcification, or architectural distortion to suggest malignancy. Asymmetry in the upper left breast, posterior depth, seen in the left MLO projection. IMPRESSION: 1. Asymmetry in the upper left breast, posterior depth, seen in the left MLO projection. The study is incomplete. A diagnostic mammogram and a diagnostic ultrasound are recommended. 2. Focal asymmetry in the right retroareolar region. The study is incomplete. A diagnostic mammogram and a diagnostic ultrasound are recommended. BI-RADS CATEGORY 0 - INCOMPLETE STUDY, NEED ADDITIONAL IMAGING EVALUATION. Reviewed, dictated and finalized at location Q. IMPRESSION: 1. Asymmetry in the upper left breast, posterior depth, seen in the left MLO pr ojection. The study is incomplete. A diagnostic mammogram and a diagnostic ultr asound are recommended. 2. Focal asymmetry in the right retroareolar region. The study is incomplete. A diagnostic mammogram and a diagnostic ultrasound are recommended. BI-RADS CATEGORY 0 - INCOMPLETE STUDY, NEED ADDITIONAL IMAGING EVALUATION.
--- OUTSIDE RECORDS SUMMARY | 2025-01-11 14:19 | XMS_ITS | Encounter Summary ---
Author Organization [facility] Address [address] [place] [address] Care Team Providers Care Financial Auditor Name Role Phone Yaritza Mora RN Unavailable [phone] Afshan Perez RN Unavailable Unavailable Himanshu Steiner MD Unavailable [phone] Madeleine Garcia MD Primary Care Provider [phone] Encounter Details Date Type Department Care Team (Late st Contact Info) Description 02/25/[address] [facility] - DermPath Lab [address] [place] [address] Paula Erazo DO [address] [facility] [address]L [place] [address] Social History Tobacco Use Types Packs/Day Years Used Date Smoking Tobacco: Never Smokeless Tobacco: Never Alcohol Use Standard Drinks/Week Comments Not Currently 0 (1 standard drink = 0.6 oz pur e alcohol) AUDIT-C Answer Date Recorded Q1: How often do you have a drink containing alcohol? Never 03/04/2023 Q2: How many drinks containi ng alcohol do you have on a typical day when you are drinking? Patient does not drink Q3: How often do you have si x or more drinks on one occasion? Never 03/04/2023 Overall Financial Resource Strain (CARDIA) Answe r Date Recorded How hard is it for you to pa y for the very basics like food, housing, medical care, and heating? Not hard at all 03/06/2023 [facility] [place] [facility] Occupat ional Health - Occupational Stress Questionnaire Answer Date Recorded Do you feel stress - tense, restless, nervous, or anxious, or unable to sleep at night because your mind is troubled all the time - these days? Not at all 03/06/2023 Hunger Vital Sign Answer Date Recorded Within the past 12 months, y ou worried that your food would run out before you got the money to buy more. Never true 03/06/20 23 Within the past 12 months, t he food you bought just didn't last and you didn't have money to get more. Never true 03/06/2023 PRAPARE - Transportation Answer Date Re corded In the past 12 months, has l ack of transportation kept you from medical appointments or from getting medications? No 02/18 In the past 12 months, has l ack of transportation kept you from meetings, work, or from getting things needed for daily living? No 03/06/2023 Housing Stability Vital Sign Answer Stas e Recorded In the last 12 months, was t here a time when you were not able to pay the mortgage or rent on time? No 03/06/2023 In the last 12 months, how many places have you lived? 1 03/06/2023 In the last 12 months, was t here a time when you did not have a steady place to sleep or slept in a care home (including now)? No 03/06/2023 Comments No Sex and Gender Information Value Date Recorded Sex Assigned at Not on file Legal Sex Female 7:53 PM CDT Gender Identity Not on file Sexual Orientation Not on file documented as of this encounter Functional Status * Is person deaf or have serious hearing difficulty? Answer Date of Assessment Author No 03/04/2023 9:02 AM Jefe Gonzáles RN * Is person blind or have serious difficulty seeing? Answer Date of Assessment Author No 03/04/2023 9:02 AM Jefe Gonzáles RN * Does person have serious difficulty walking/climbing stairs? Answer Date of Assessment Author No 03/04/2023 9:02 AM Jefe Gonzáles RN * Does person have difficulty dressing/bathing? Answer Date of Assessment Author No 03/04/2023 9:02 AM Jefe Gonzáles RN * Does person have difficulty doing errands alone? Answer Date of Assessment Author No 03/04/2023 9:02 AM Jefe Gonzáles RN documented as of this encounter Mental Status * Does person have difficulty concentrating/remembering/making decisions? Answer Entry Date Author No 03/04/2023 9:02 AM Jefe Gonzáles RN documented in this encounter Plan of Treatment Upcoming Encounters Date Type Department Care Team (Late st Contact Info) Description 01/27/2025 2:00 PM CDT Office Visit [facility] - Nephrology [address] [place] [phone] 01/27/2025 2:30 PM CDT Office Visit [facility] - GI [address] [place] [phone] Michoacano Agosto MD [address] [place] [address] [place] [address] documented as of this encounter Goals Goal Patient Goal Type Associated Problems Recent Progress Patient-Stated? Author Medication Management General On track( 10:39 AM SHOP MANAGER) No Afshan Perez RN Note: Expected end date: ongoing Interventions: Take all medications as prescribed Let your doctor know right away about any changes in your medications Make sure to request a refill of your medication at least one week prior to your last dose Safety General On track( 10:39 AM SHOP MANAGER) No Afshan Perez RN Note: Expected end date: ongoing Interventions: Your nurse will assess your risk for falls/injury each visit Be aware of medications that could predispose you to falling Wear non-skid/rubber sole footwear Use some light at night in your room documented as of this encounter Procedures Procedure Name Priority Date/Time Associated Diagnosis Comments DERMATOPATHOLOGY Routine 02/25/2024 10:5 8 AM SHOP MANAGER documented in this encounter Results * DERMATOPATHOLOGY (02/25/2024 10:58 AM SHOP MANAGER) Case Report Dermatopathology Report Case: [id number] Authorizing Provider: Paula Erazo DO Collected: 02/25/2024 10:58 AM Ordering Location: [facility] - Received: 02/25/2024 04:04 PM DermPath Lab Pathologist: Shiloh Pyle MD Specimen: Skin, right cheek 3:49 PM SHOP MANAGER DERMATOPATHOLOGY LABORATORY Final Diagnosis Specimen A. 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 The specimen consists of a shave biopsy measuring 3x3x1 mm. Jar 0. 3:49 PM SHOP MANAGER DERMATOPATHOLOGY LABORATORY Microscopic Description Specimen A. SKIN, right cheek: Sections reveal parakeratosis, acanthosis and keratinocyte dysmaturation which is most prominent in the lower epidermis but focally extends through the entire epidermis. Ki-67 immunohistochemical stain reveals a elevated proliferative index throughout the epidermis. There is underlying dermal fibrosis. Additional deeper sections were obtained and reviewed. 3:49 PM SHOP MANAGER DERMATOPATHOLOGY LABORATORY Disclaimer An external and internal positive and negative controls are appropriate for the histochemical, immunohistochemical and immunofluorescence stain(s) in this case (if any), except where stated explicitly. The performance characteristics of the stain(s) cited in this report were developed and its performance characteristic determined by the Dermatopathology Laboratory at [facility], directed by Dr. Ann Lewis. These tests need not be, and therefore are not, approved by the [place] Food and Drug Administration. The tests are used for clinical purposes. Billing Codes Specimen Charges Stain Charges 51185 1 38902 1 4 3:49 PM SHOP MANAGER DERMATOPATHOLOGY LABORATORY Embedded Images 4 3:49 PM SHOP MANAGER DERMATOPATHOLOGY LABORATORY Pathology/Cytolo gy TISSUE SPECIMEN FROM SKIN / Unknown 02/25/2024 10:58 AM SHOP MANAGER 02/25/2024 4:04 PM SHOP MANAGER us Paula Erazo DO LAB - PATHOLOGY/CYTOLOGY ORDERABLES Final Result DERMATOPATHOLOGY LABORATORY [facility] - Department of Dermatology [facility] [address] [place] [address], [address] [phone] documented in this encounter Visit Diagnoses Not on filedocumented in this encounter Additional Health Concerns Infection Onset Date Last Indicated Resolved Time COVID-19 Under Investigation 04/03/2024 04/03/2024 04/04/2024 12:04 AM SHOP MANAGER documented as of this encounter Care Teams Financial Auditor Relationship Specialty Start Date End Date Madeleine Garcia MD [address] [place] [address] PCP - General Family Medicine 11/21/22 Yaritza Mora, RN Claims Processor 09/25/15 Afshan Perez, RN Registered Nurse Hepatology 09/01/17 Himanshu Steiner MD [address] [place], [place] [phone] Obstetrics and Gynecology 04/26/18 documented as of this encounter
--- OUTSIDE RECORDS SUMMARY | 2025-01-11 14:19 | XMS_ITS | Encounter Summary ---
Author Organization [facility] Address [address] [place] [address] Care Team Providers Care Accounting Reconciliation Clerk Name Role Phone Yaritza Mora RN Unavailable [phone] Alana Christiansen MD Primary Care Provider [phone] Afshan Perez RN Unavailable Unavailable Himanshu Steiner MD Unavailable [phone] Madeleine Garcia MD Primary Care Provider [phone] Encounter Details Date Type Department Care Team (Late st Contact Info) Description 04/26/2020 Lab Requisition [facility] Care DermPath Lab [address] [place] [address] Paula Erazo, DO [address] [facility] [address] [place] [address] Social History Tobacco Use Types Packs/Day Years Used Date Smoking Tobacco: Never Smokeless Tobacco: Never Alcohol Use Standard Drinks/Week Comments No 0 (1 standard drink = 0.6 oz pur e alcohol) Occasionally has 1 drink Comments No Sex and Gender Information Value Date Recorded Sex Assigned at Not on file Legal Sex Female 7:53 PM CDT Gender Identity Not on file Sexual Orientation Not on file documented as of this encounter Functional Status * Is person deaf or have serious hearing difficulty? Answer Date of Assessment Author No 09/15/2015 7:31 AM CDT Jinny Dewey, BENEFITS ADMINISTRATOR-CONTRACT ACCOUNTANT * Is person blind or have serious difficulty seeing? Answer Date of Assessment Author No 09/15/2015 7:31 AM CDT Jinny Dewey, BENEFITS ADMINISTRATOR-CONTRACT ACCOUNTANT * Does person have serious difficulty walking/climbing stairs? Answer Date of Assessment Author No 09/15/2015 7:31 AM CDT Jinny Dewey, BENEFITS ADMINISTRATOR-CONTRACT ACCOUNTANT * Does person have difficulty dressing/bathing? Answer Date of Assessment Author No 09/15/2015 7:31 AM CDT Jinny Dewey, BENEFITS ADMINISTRATOR-CONTRACT ACCOUNTANT * Does person have difficulty doing errands alone? Answer Date of Assessment Author No 09/15/2015 7:31 AM CDT Jinny Dewey, BENEFITS ADMINISTRATOR-CONTRACT ACCOUNTANT documented as of this encounter Mental Status * Does person have difficulty concentrating/remembering/making decisions? Answer Entry Date Author No 09/15/2015 7:31 AM CDT Jinny Dewey, BENEFITS ADMINISTRATOR-CONTRACT ACCOUNTANT documented in this encounter Plan of Treatment Upcoming Encounters Date Type Department Care Team (Late st Contact Info) Description 01/27/2025 2:00 PM CDT Office Visit [facility] - Nephrology [address] [place] [phone] 01/27/2025 2:30 PM CDT Office Visit [facility] - GI [address] [place] [phone] Michoacano Agosto MD [address] [place] [address] [place] [address] documented as of this encounter Goals Goal Patient Goal Type Associated Problems Recent Progress Patient-Stated? Author Medication Management General On track( 10:39 AM NEONATAL SURGEON) No Afshan Perez, BEAR Note: Expected end date: ongoing Interventions: Take all medications as prescribed Let your doctor know right away about any changes in your medications Make sure to request a refill of your medication at least one week prior to your last dose Safety General On track( 10:39 AM NEONATAL SURGEON) No Afshan Perez, RN Note: Expected end date: ongoing Interventions: Your nurse will assess your risk for falls/injury each visit Be aware of medications that could predispose you to falling Wear non-skid/rubber sole footwear Use some light at night in your room documented as of this encounter Procedures Procedure Name Priority Date/Time Associated Diagnosis Comments DERMATOPATHOLOGY Routine 04/25/2020 3:33 AM NEONATAL SURGEON documented in this encounter Results * DERMATOPATHOLOGY (04/25/2020 3:33 AM NEONATAL SURGEON) Case Report Dermatopathology Report Case: [id number] Authorizing Provider: Paula Erazo DO Collected: 04/25/2020 03:33 AM Ordering Location: [facility] DermPath Lab Received: 04/26/2020 07:51 AM Pathologist: Verona Durand MD Specimen: Skin, chest 4:56 PM [facility] DERMATOPATHOLOGY LABORATORY Final Diagnosis Specimen A. SKIN, chest: SUPERFICIAL DERMAL INTERSITIAL NEUTROPHILIC AND LYMPHOCYTIC INFILTRATE, SUPERFICIAL ASPECT OF (L72.0) (see microscopic description and comment) 4:56 PM [facility] DERMATOPATHOLOGY LABORATORY at 1656 NEONATAL SURGEON Clinical History LPLK vs BCC vs nevus 4:56 PM [facility] DERMATOPATHOLOGY LABORATORY Gross Description Specimen A: Received is one formalin filled container labeled with the patient's name and designated chest. The specimen consists of a shave biopsy measuring 5x5x1 mm. Jar 0. 4:56 PM [facility] DERMATOPATHOLOGY LABORATORY Microscopic Description Specimen A. SKIN, chest: Epidermis and superficial dermis are present for evaluation. Neutrophils and lymphocytes are present within the superficial dermis. Grocott's methenamine silver (GMS) stain fails to highlight fungal elements in the available sections. Tissue Gram stain is negative for bacteria in the sections examined. There is no evidence of epithelial dysplasia or malignancy in multiple deeper sections examined. COMMENT: The overall findings are nonspecific and may represent changes adjacent to a ruptured follicle or cyst. Although special stains for microorganisms are negative, infection cannot be entirely ruled out and clinical correlation with culture is recommended if clinically indicated. Due to the superficial nature of the biopsy, an underlying process cannot be excluded. 4:56 PM NEONATAL SURGEON DERMATOPATHOLOGY LABORATORY Disclaimer An external and internal positive and negative controls are appropriate for the histochemical, immunohistochemical and immunofluorescence stain(s) in this case (if any), except where stated explicitly. The performance characteristics of the stain(s) cited in this report were developed and its performance characteristic determined by the Dermatopathology Laboratory at [facility], directed by Dr. Ann Lewis. These tests need not be, and therefore are not, approved by the [place] Food and Drug Administration. The tests are used for clinical purposes. Billing Codes Specimen Charges Stain Charges 18596 1 11851 67744 1 1 1 4:56 PM NEONATAL SURGEON DERMATOPATHOLOGY LABORATORY Embedded Images 4:56 PM NEONATAL SURGEON DERMATOPATHOLOGY LABORATORY Pathology/Cytolo gy TISSUE SPECIMEN FROM SKIN / Unknown 04/25/2020 3:33 AM NEONATAL SURGEON 04/26/2020 7:51 AM NEONATAL SURGEON Paula Erazo DO LAB - PATHOLOGY/CYTOLOGY ORDERABLES Final Result DERMATOPATHOLOGY LABORATORY [facility] - Department of Dermatology [facility] Medicine [address] [place] [address], [address] [phone] documented in this encounter Visit Diagnoses Not on filedocumented in this encounter Additional Health Concerns Infection Onset Date Last Indicated Resolved Time COVID-19 Under Investigation 04/03/2024 04/03/2024 04/04/2024 12:04 AM NEONATAL SURGEON documented as of this encounter Care Teams Accounting Reconciliation Clerk Relationship Specialty Start Date End Date Alana Christiansen MD [facility] [place] [phone] PCP - General 08/18/17 11/20/22 Madeleine Garcia MD [address] [place] [address] PCP - General Family Medicine 11/21/22 Yaritza Mora, RN Launch Manager 09/25/15 Afshan Perez, BEAR Registered Nurse Hepatology 09/01/17 Himanshu Steiner MD [address] [facility] [address] [place], [place] [phone] Obstetrics and Gynecology 04/26/18 documented as of this encounter
--- OUTSIDE RECORDS SUMMARY | 2025-01-11 14:19 | XMS_ITS ---
Author Organization [facility] Address [address] [place] [address] Care Team Providers Care Website Project Manager Name Role Phone Yaritza Mora RN Unavailable [phone] Afshan Perez RN Unavailable Unavailable Himanshu Steiner MD Unavailable [phone] Madeleine Garcia MD Primary Care Provider [phone] Transplant Episode Kidney Recipient [facility] ([place], [place]) - [facility] Organ Received: Right Kidney Transplanted on 03/04/2023 Marked as Active Follow-up on 03/04/2023 Kidney CoordinatorS NEPH TXP Phone: N/A Fax: N/A Email: N/A [place] Organ Diagnosis Organ Primary Contributory Kidney Polycystic Kidneys Infection History Noted Survival Infection Treatment Organism Resolved 04/04/2024 1 year 1 month Acute pyelonephritis Donor Information Organ ABO Source Meets Risk Criteria HLA Match Mismatches Cross Match Right Kidney Transplanted O POS Live No Non Match A: 2 B: 2 DR: 2 T cell (Negative, flow: -13) B cell (Negative, flow: -16) Right Kidney Donor Serology Results Anti-CMV CMV Ig.80 CMV IgM: <30.0 EBV IgG EBV VCA IgM: <36.0 EBV VCA IgG: >600.0 Anti-HBcAb No results on file HBsAg No results on file HBV DNA No results on file Anti-HCV No results on file Anti-HIV I/II No results on file RPR/VDRL No results on file EBV IgM EBV VCA IgM: <36.0 HBsAb HBsAb: Non-reactive Toxoplasm a No results on file SARS CoV-2 SARS CoV-2 RNA: Not detected Care Team Name Role Phone Fax Email [facility] NEPH TXP Kidney Coordinator N/A N/A N/A Luba Tesfaye Software Test Engineer N/A N/A N/A Zaheer Fernandez MD Referring Physician [phone] N/A Events Post-Transplant Pre-Transplant Admitted: 03/04/2023 Referred: 11/03/2022 Transplanted: 03/04/2023 Evaluation began: 3 Discharged: 03/08/2023 Committee: 01/22/2023 Center waitlisted: 3
--- OUTSIDE RECORDS SUMMARY | 2025-01-11 14:19 | XMS_ITS | Encounter Summary ---
Author Organization [facility] Address [address] [facility] [place] [address] Care Team Providers Care Urgent Care Nurse Practitioner Name Role Phone Yaritza Mora RN Unavailable [phone] Alana Christiansen MD Primary Care Provider [phone] Afshan Perez RN Unavailable Unavailable Himanshu Steiner MD Unavailable [phone] Madeleine Garcia MD Primary Care Provider [phone] Reason for Visit * Reason Comments Refill Request Encounter Details Date Type Department Care Team (Late st Contact Info) Description 01/27/2022 Refill [facility] - [address], [place] [phone] Alan Martini MD [address] [place] [address] [place] [address] Refill Request Social History Tobacco Use Types Packs/Day Years [...] No 09/15/2015 7:31 AM CDT Jinny Dewey, PIPE FINISHING SUPERVISOR-DISPUTE RESOLUTION ANALYST * Is person blind or have serious difficulty seeing? Answer Date of Assessment Author No 09/15/2015 7:31 AM CDT Jinny Dewey, PIPE FINISHING SUPERVISOR-DISPUTE RESOLUTION ANALYST * Does person have serious difficulty walking/climbing stairs? Answer Date of Assessment Author No 09/15/2015 7:31 AM CDT Jinny Dewey, PIPE FINISHING SUPERVISOR-DISPUTE RESOLUTION ANALYST * Does person have difficulty dressing/bathing? Answer Date of Assessment Author No 09/15/2015 7:31 AM CDT Jinny Dewey, PIPE FINISHING SUPERVISOR-DISPUTE RESOLUTION ANALYST * Does person have difficulty doing errands alone? Answer Date of Assessment Author No 09/15/2015 7:31 AM CDT Jinny Dewey, PIPE FINISHING SUPERVISOR-DISPUTE RESOLUTION ANALYST documented as of this encounter Mental Status * Does person have difficulty concentrating/remembering/making decisions? Answer Entry Date Author No 09/15/2015 7:31 AM CDT Jinny Dewey, PIPE FINISHING SUPERVISOR-DISPUTE RESOLUTION ANALYST documented in this encounter Plan of Treatment Upcoming Encounters Date Type Department Care Team (Late st Contact Info) Description 01/27/2025 2:00 PM CDT Office Visit [facility] - Nephrology [address] [place] [phone] 01/27/2025 2:30 PM CDT Office Visit [facility] - GI [address] [place] [phone] Michoacano Agosto MD [address] [place] [address] [place] [address] documented as of this encounter Goals Goal Patient Goal Type Associated Problems Recent Progress Patient-Stated? Author Medication Management General On track( 024 10:39 AM COREMAKER SUPERVISOR) Afshan Flores, RN Note: Expected end date: ongoing Interventions: Take all medications as prescribed Let your doctor know right away about any changes in your medications Make sure to request a refill of your medication at least one week prior to your last dose Safety General On track( 024 10:39 AM COREMAKER SUPERVISOR) No Afshan Perez, BEAR Note: Expected end date: ongoing Interventions: Your nurse will assess your risk for falls/injury each visit Be aware of medications that could predispose you to falling Wear non-skid/rubber sole footwear Use some light at night in your room documented as of this encounter Visit Diagnoses Diagnosis Nephrolithiasis Calculus of kidney documented in this encounter Additional Health Concerns Infection Onset Date Last Indicated Resolved Time COVID-19 Under Investigation 04/03/2024 04/03/2024 04/04/2024 12:04 AM COREMAKER SUPERVISOR documented as of this encounter Care Teams Urgent Care Nurse Practitioner Relationship Specialty Start Date End Date Alana Christiansen MD [facility] [address] [place] [address] PCP - General 08/18/17 11/20/22 Madeleine Garcia MD [address] [place] [address] PCP - General Family Medicine 11/21/22 Yaritza Mora, RN Supervising Architect 09/25/15 Afshan Perez, RN Registered Nurse Hepatology 09/01/17 Himanshu Steiner MD [address] [place], [place] [phone] Obstetrics and Gynecology 04/26/18 documented as of this encounter
--- OUTSIDE RECORDS SUMMARY | 2025-01-11 14:19 | XMS_ITS | Encounter Summary ---
Author Organization [facility] Address [address] [facility] [place] [address] Care Team Providers Care Handstitching Machine Armhole Feller Name Role Phone Yaritza Mora RN Unavailable [phone] Alana Christiansen MD Primary Care Provider [phone] Afshan Perez RN Unavailable Unavailable Himanshu Steiner MD Unavailable [phone] Madeleine Garcia MD Primary Care Provider [phone] Reason for Visit * Reason Onset Date Comments MEDICATION REFILL 03/18/2018 Encounter Details Date Type Department Care Team (Late st Contact Info) Description 03/18/2018 Refill [facility] GI [address] [place] [address] Michoacano Agosto MD [address] [place] [address] MEDICATION REFILL Social History Tobacco Use Types Packs/Day Years Used Date Smoking Tobacco: Never Alcohol Use Standard Drinks/Week Comments Yes 0 (1 standard drink = 0.6 oz pur e alcohol) Occasionally has 1 drink Comments Unknown Sex and Gender Information Value Date Recorded Sex Assigned at Not on file Legal Sex Female 7:53 PM CDT Gender Identity Not on file Sexual Orientation Not on file documented as of this encounter Functional Status * Is person deaf or have serious hearing difficulty? Answer Date of Assessment Author No 09/15/2015 7:31 AM CDT Jinny Dewey, MIXING ROLL OPERATOR-OFFICE ADMIN * Is person blind or have serious difficulty seeing? Answer Date of Assessment Author No 09/15/2015 7:31 AM CDT Jinny Dewey, MIXING ROLL OPERATOR-OFFICE ADMIN * Does person have serious difficulty walking/climbing stairs? Answer Date of Assessment Author No 09/15/2015 7:31 AM CDT Jinny Dewey, MIXING ROLL OPERATOR-OFFICE ADMIN * Does person have difficulty dressing/bathing? Answer Date of Assessment Author No 09/15/2015 7:31 AM CDT Jinny Dewey, MIXING ROLL OPERATOR-OFFICE ADMIN * Does person have difficulty doing errands alone? Answer Date of Assessment Author No 09/15/2015 7:31 AM CDT Jinny Dewey, MIXING ROLL OPERATOR-OFFICE ADMIN documented as of this encounter Mental Status * Does person have difficulty concentrating/remembering/making decisions? Answer Entry Date Author No 09/15/2015 7:31 AM CDT Jinny Dewey, MIXING ROLL OPERATOR-OFFICE ADMIN documented in this encounter Plan of Treatment Upcoming Encounters Date Type Department Care Team (Late st Contact Info) Description 01/27/2025 2:00 PM CDT Office Visit [facility] - Nephrology [address] [place] [phone] 01/27/2025 2:30 PM CDT Office Visit [facility] - GI [address] [place] [phone] Michoacano Agosto MD [address] [place] [address] [place] [address] documented as of this encounter Goals Goal Patient Goal Type Associated Problems Recent Progress Patient-Stated? Author Medication Management General On track( 024 10:39 AM AUTOMOTIVE SALES SPECIALIST) Afshan Flores, RN Note: Expected end date: ongoing Interventions: Take all medications as prescribed Let your doctor know right away about any changes in your medications Make sure to request a refill of your medication at least one week prior to your last dose Safety General On track( 024 10:39 AM AUTOMOTIVE SALES SPECIALIST) No Afshan Perez, RN Note: Expected end date: ongoing Interventions: Your nurse will assess your risk for falls/injury each visit Be aware of medications that could predispose you to falling Wear non-skid/rubber sole footwear Use some light at night in your room documented as of this encounter Visit Diagnoses Not on filedocumented in this encounter Additional Health Concerns Infection Onset Date Last Indicated Resolved Time COVID-19 Under Investigation 04/03/2024 04/03/2024 04/04/2024 12:04 AM AUTOMOTIVE SALES SPECIALIST documented as of this encounter Care Teams Handstitching Machine Armhole Feller Relationship Specialty Start Date End Date Alana Christiansen MD [address] [facility] [place] [address] PCP - General 08/18/17 11/20/22 Madeleine Garcia MD [address] [place] [address] PCP - General Family Medicine 11/21/22 Yaritza Mora, RN Detailer 09/25/15 Afshan Perez, RN Registered Nurse Hepatology 09/01/17 Himanshu Steiner MD [address] [facility] [address] [place], [place] [phone] Obstetrics and Gynecology 04/26/18 documented as of this encounter
--- OUTSIDE RECORDS SUMMARY | 2025-01-11 14:19 | XMS_ITS | Encounter Summary ---
Author Organization [facility] Address [address] [place] [address] Care Team Providers Care Cork Grinder Name Role Phone Yaritza Mora RN Unavailable [phone] Alana Christiansen MD Primary Care Provider [phone] Afshan Perez RN Unavailable Unavailable Himanshu Steiner MD Unavailable [phone] Madeleine Garcia MD Primary Care Provider [phone] Reason for Visit * Reason Comments Vomiting Encounter Details Date Type Department Care Team (Late st Contact Info) Description 12/02/2021 Telephone [facility] - [address] [place] [phone] Afshan Perez, BEAR Vomiting Social History Tobacco Use Types Packs/Day Years [...] No 09/15/2015 7:31 AM CDT Jinny Dewey, MANAGER OF PRODUCTION-OB/GYN NURSE * Is person blind or have serious difficulty seeing? Answer Date of Assessment Author No 09/15/2015 7:31 AM CDT Jinny Dewey, MANAGER OF PRODUCTION-OB/GYN NURSE * Does person have serious difficulty walking/climbing stairs? Answer Date of Assessment Author No 09/15/2015 7:31 AM CDT Jinny Deweyn Cammy, MANAGER OF PRODUCTION-OB/GYN NURSE * Does person have difficulty dressing/bathing? Answer Date of Assessment Author No 09/15/2015 7:31 AM CDT Jinny Deweyn Cammy, MANAGER OF PRODUCTION-OB/GYN NURSE * Does person have difficulty doing errands alone? Answer Date of Assessment Author No 09/15/2015 7:31 AM CDT SkJinny hassann Cammy, MANAGER OF PRODUCTION-OB/GYN NURSE documented as of this encounter Mental Status * Does person have difficulty concentrating/remembering/making decisions? Answer Entry Date Author No 09/15/2015 7:31 AM CDT Jinny Dewey, MANAGER OF PRODUCTION-OB/GYN NURSE documented in this encounter Miscellaneous Notes * Telephone Encounter - Afshan Perez RN - 12/02/2021 9:09 AM CDT Call received from pt to report nause, vomiting, retching, and flank/abdominal pain. Attempt to take zofran with subsequent retching and vomiting. Pt believes acute onset to be kidney stones. RN instructs pt to report to [facility]. Pt verbalizes understanding. Dr. Martini and Dr. Agosto notified. documented in this encounter Plan of Treatment Upcoming Encounters Date Type Department Care Team (Late st Contact Info) Description 01/27/2025 2:00 PM CDT Office Visit [facility] - Nephrology [address] [place] [phone] 01/27/2025 2:30 PM CDT Office Visit [facility] - GI [address] [place] [phone] Michoacano Agosto MD [address] [place] [address] [place] [address] documented as of this encounter Goals Goal Patient Goal Type Associated Problems Recent Progress Patient-Stated? Author Medication Management General On track( 024 10:39 AM SYSTEMS MECHANIC) No Afshan Perez, BEAR Note: Expected end date: ongoing Interventions: Take all medications as prescribed Let your doctor know right away about any changes in your medications Make sure to request a refill of your medication at least one week prior to your last dose Safety General On track( 024 10:39 AM SYSTEMS MECHANIC) No Afshan Perez, RN Note: Expected end [...] Under Investigation 04/03/2024 04/03/2024 04/04/2024 12:04 AM SYSTEMS MECHANIC documented as of this encounter Care Teams Cork Grinder Relationship Specialty Start Date End Date Alana Christiansen MD [facility] [address] [place] [phone] PCP - General 08/18/17 11/20/22 Madeleine Garcia MD [address] [place] [address] PCP - General Family Medicine 11/21/22 Yaritza Mora, RN Finisher Screwdown 09/25/15 Afshan Perez, BEAR Registered Nurse Hepatology 09/01/17 Himanshu Steiner MD [address] [facility] [address] [place], [place] [phone] Obstetrics and Gynecology 04/26/18 documented as of this encounter
--- OUTSIDE RECORDS SUMMARY | 2025-01-11 14:19 | XMS_ITS ---
Author Organization [facility] Address [address] [facility] [place] [address] Care Team Providers Care Manager Pacu Name Role Phone Yaritza Mora RN Unavailable [phone] Afshan Perez RN Unavailable Unavailable Himanshu Steiner MD Unavailable [phone] Madeleine Garcia MD Primary Care Provider [phone] Transplant Episode Liver Recipient [facility] ([place], [place]) - [place] Organ Received: Liver Transplanted on 11/29/2015 Marked as Active Follow-up on 11/29/2015 Liver CoordinatorAfshan Perez RN Phone: N/A Fax: N/A Email: N/A [place] Organ Diagnosis Organ Primary Contributory Liver Other, Specify - (none) Infection History Noted Survival Infection Treatment Organism Resolved 04/28/2017 1 year 4 months C. difficile colitis 03/04/2023 Donor Information Organ ABO Source Meets Risk Criteria HLA Match Mismatches Cross Match Liver Transplanted O DBD No A: B: DR: Liver Donor Serology Results Anti-CMV CMV IgG: Negative EBV IgG EBV VCA IgM: Positive Anti-HBcAb HBC Total: Negative HBsAg HBsAg: Negative HBV DNA No results on file Anti-HCV HCV: Negative Anti-HIV I/II HIV-1: Negative Anti-HTLV I/II HTLV: Not Done RPR/VDRL RPR: Negative EBV IgM EBV VCA IgM: Positive HBsAb No results on file Toxoplasma No results on file SARS CoV-2 No results on file Care Team Name Role Phone Fax Email Afshan Perez RN Liver Coordinator N/A N/A N/A Junior Deutsch MD Referring Physician [phone] N/A Ruben Guadalupe MD Transplant Surgeon [phone] N/A Events Post-Transplant Pre-Transplant Admitted: 11/29/2015 Referred: 09/20/2015 Transplanted: 11/29/2015 Evaluation began: 6 Discharged: 12/11/2015 Center waitlisted: 6
--- OUTSIDE RECORDS SUMMARY | 2025-01-11 14:19 | XMS_ITS | Encounter Summary ---
Author Organization [facility] Address [address] [facility] [place] [address] Care Team Providers Care Manager Operations Research Name Role Phone Yaritza Mora RN Unavailable [phone] Alana Christiansen MD Primary Care Provider [phone] Afshan Perez RN Unavailable Unavailable Himanshu Steiner MD Unavailable [phone] Madeleine Garcia MD Primary Care Provider [phone] Reason for Visit * Reason Comments Refill Request Encounter Details Date Type Department Care Team (Late st Contact Info) Description 01/15/2021 Refill [facility] - Nephrology [address] [place] [address], [place] [phone] Alan Martini MD [address] [place] [address] [place] [address] Refill Request Social History Tobacco Use Types [...] No 09/15/2015 7:31 AM CDT Jinny Dewey, DELIVERY DRIVER/CUSTOMER SERVICE-ROAD MENDER * Is person blind or have serious difficulty seeing? Answer Date of Assessment Author No 09/15/2015 7:31 AM CDT Jinny Dewey, DELIVERY DRIVER/CUSTOMER SERVICE-ROAD MENDER * Does person have serious difficulty walking/climbing stairs? Answer Date of Assessment Author No 09/15/2015 7:31 AM CDT Jinny Dewey, DELIVERY DRIVER/CUSTOMER SERVICE-ROAD MENDER * Does person have difficulty dressing/bathing? Answer Date of Assessment Author No 09/15/2015 7:31 AM CDT Jinny Dewey, DELIVERY DRIVER/CUSTOMER SERVICE-ROAD MENDER * Does person have difficulty doing errands alone? Answer Date of Assessment Author No 09/15/2015 7:31 AM CDT Jinny Dewey, DELIVERY DRIVER/CUSTOMER SERVICE-ROAD MENDER documented as of this encounter Mental Status * Does person have difficulty concentrating/remembering/making decisions? Answer Entry Date Author No 09/15/2015 7:31 AM CDT Jinny Dewey, DELIVERY DRIVER/CUSTOMER SERVICE-ROAD MENDER documented in this encounter Plan of Treatment Upcoming Encounters Date Type Department Care Team (Late st Contact Info) Description 01/27/2025 2:00 PM CDT Office Visit [facility] - Nephrology [address] [place] [phone] 01/27/2025 2:30 PM CDT Office Visit [facility] - GI [address] [place] [phone] Michoacano Agosto MD [address] [place] [address] [place] [address] documented as of this encounter Goals Goal Patient Goal Type Associated Problems Recent Progress Patient-Stated? Author Medication Management General On track( 024 10:39 AM NET SOLUTIONS ARCHITECT) Afshan Flores, RN Note: Expected end date: ongoing Interventions: Take all medications as prescribed Let your doctor know right away about any changes in your medications Make sure to request a refill of your medication at least one week prior to your last dose Safety General On track( 024 10:39 AM NET SOLUTIONS ARCHITECT) No Afshan Perez, RN Note: Expected end [...] Under Investigation 04/03/2024 04/03/2024 04/04/2024 12:04 AM NET SOLUTIONS ARCHITECT documented as of this encounter Care Teams Manager Operations Research Relationship Specialty Start Date End Date Alana Christiansen MD [address] [facility] [place] [address] PCP - General 08/18/17 11/20/22 Madeleine Garcia MD [address] [place] [address] PCP - General Family Medicine 11/21/22 Yaritza Mora, RN Ancillary Services Manager 09/25/15 Afshan Perez, RN Registered Nurse Hepatology 09/01/17 Himanshu Steiner MD [address] [facility] [address] [place], [place] [phone] Obstetrics and Gynecology 04/26/18 documented as of this encounter
--- OUTSIDE RECORDS SUMMARY | 2025-01-11 14:20 | XMS_ITS | Encounter Summary ---
Author Organization [facility] Address [address] [place] [address] Care Team Providers Care Jinrikisha Driver Name Role Phone Yaritza Mora RN Unavailable [phone] Afshan Perez RN Unavailable Unavailable Himanshu Steiner MD Unavailable [phone] Madeleine Garcia MD Primary Care Provider [phone] Encounter Details Date Type Department Care Team (Late st Contact Info) Description 01/06/2025 Orders Only [facility] - Nephrology [address] [facility], [place] [address] Chiquita Oglesby, WOOD TYPE CUTTER-EYEGLASS FITTER [address] [facility] DIV [place] [address] Nephrolithiasis; S/P liver transplant in 11/29/2015 ([facility] Long-term use of immunosuppressant medication; Vitamin D deficiency; Anemia in stage 2 chronic kidney disease Social History Tobacco Use Types Packs/Day Years Used Date Smoking Tobacco: Never Smokeless Tobacco: Never Alcohol Use Standard Drinks/Week Comments Not Currently 0 (1 standard drink = 0.6 oz pur e alcohol) AUDIT-C Answer Date Recorded Q1: How often do you have a drink containing alcohol? Never 04/04/2024 Q2: How many drinks containi ng alcohol do you have on a typical day when you are drinking? Patient does not drink 4 Q3: How often do you have si x or more drinks on one occasion? Never 04/04/2024 Overall Financial Resource Strain (CARDIA) Answe r Date Recorded How hard is it for you to pa y for the very basics like food, housing, medical care, and heating? Not hard at all 04/04/2024 [facility] - Occupational Stress Questionnaire Answer Date Recorded Do you feel stress - tense, restless, nervous, or anxious, or unable to sleep at night because your mind is troubled all the time - these days? Not at all 04/04/2024 Hunger Vital Sign Answer Date Recorded Within the past 12 months, y ou worried that your food would run out before you got the money to buy more. Never true 04/04/20 24 Within the past 12 months, t he food you bought just didn't last and you didn't have money to get more. Never true 04/04/2024 PRAPARE - Transportation Answer Date Re corded In the past 12 months, has l ack of transportation kept you from medical appointments or from getting medications? No 03/20 In the past 12 months, has l ack of transportation kept you from meetings, work, or from getting things needed for daily living? No 04/04/2024 Housing Stability Vital Sign Answer Stas e [...] place to sleep or slept in a snf (including now)? No 03/06/2023 Housing Stability Vital Sign Answer Stas e Recorded In the last 12 months, was t here a time when you were not able to pay the mortgage or rent on time? No 04/04/2024 In the past 12 months, how m any times have you moved where you were living? 1 04/04/2024 At any time in the past 12 m [facility], were you homeless or living in a snf (including now)? No 04/04/2024 Comments No Sex and Gender Information Value Date Recorded Sex Assigned at Not on file Legal Sex Female 7:53 PM CDT Gender Identity Not on file Sexual Orientation Not on file documented as of this encounter Functional Status * Is person deaf or have serious hearing difficulty? Answer Date of Assessment Author No 04/04/2024 11:51 PM Murray Díaz RN * Is person blind or have serious difficulty seeing? Answer Date of Assessment Author No 04/04/2024 11:51 PM Murray Díaz RN * Does person have serious difficulty walking/climbing stairs? Answer Date of Assessment Author No 04/04/2024 11:51 PM Murray Díaz RN * Does person have difficulty dressing/bathing? Answer Date of Assessment Author No 04/04/2024 11:51 PM Murray Díaz RN * Does person have difficulty doing errands alone? Answer Date of Assessment Author No 04/04/2024 11:51 PM Murray Díaz RN documented as of this encounter Mental Status * Does person have difficulty concentrating/remembering/making decisions? Answer Entry Date Author No 04/04/2024 11:51 PM Murray Díaz RN documented in this encounter Plan of Treatment Upcoming Encounters Date Type Department Care Team (Late st Contact Info) Description 01/27/2025 2:00 PM CDT Office Visit [facility] - Nephrology [address] [place] [phone] 01/27/2025 2:30 PM CDT Office Visit [facility] - GI [address] [place] [phone] Michoacano Agosto MD [address] [place] [address] [place] [address] documented as of this encounter Goals Goal Patient Goal Type Associated Problems Recent Progress Patient-Stated? Author Medication Management General On track( 024 10:39 AM PT SITTER) No Afshan Perez RN Note: Expected end date: ongoing Interventions: Take all medications as prescribed Let your doctor know right away about any changes in your medications Make sure to request a refill of your medication at least one week prior to your last dose Safety General On track( 024 10:39 AM PT SITTER) Afshan Flores, RN Note: Expected end date: ongoing Interventions: Your nurse will assess your risk for falls/injury each visit Be aware of medications that could predispose you to falling Wear non-skid/rubber sole footwear Use some light at night in your room documented as of this encounter Visit Diagnoses Diagnosis Nephrolithiasis Calculus of kidney S/P liver transplant in 11/29/2015 (CMS/HCC) Liver replaced by transplant Long-term use of immunosuppressant medication Encounter for long-term (current) use of other medications Vitamin D deficiency Anemia in stage 2 chronic kidney disease documented in this encounter Care Teams Jinrikisha Driver Relationship Specialty Start Date End Date Madeliene Garcia MD [address] [place] [address] PCP - General Family Medicine 11/21/22 Yaritza Mora, RN Community Development Specialist 09/25/15 Afshan Perez, RN Registered Nurse Hepatology 09/01/17 Himanshu Steiner MD [address] [place], [place] [id number] Obstetrics and Gynecology 04/26/18 documented as of this encounter
--- OUTSIDE RECORDS SUMMARY | 2025-01-11 14:20 | XMS_ITS | Clinical Summary ---
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 This disclosure is being madepursuant to the Care Everywhere program and may not contain all information available regarding this patient. Last updated 18.[facility] Allergies Active Allergy Reactions Criticality Noted Date Comments Adhesive Sensitivity Rash Medium 05/11/2018 Amoxicillin Rash Low 09/15/2015 Food Other 03/26/2021 Passionfruit Grapefruit Extract Other 05/31/2019 Liver transplant Latex Skin Reactions 09/15/2015 Itching Live Vaccines (Immunodeficiency) Other 05/31/2019 Liver transplant Nsaids Other 12/16/2023 S/p kidney transplant Pomegranate (Punica Granatum) Other 07/29/2024 Medications * This document contains information received from the source organization and may not represent a complete record from that organization. * Be aware that medications may not be up to date on this document. Alwaysverify current medications with the patient. fluticasone propionate (FLONASE) 50 MCG/ACT nasal spray [place] 2 (two) sprays into each nostril as needed Active Clpyo-J-Zqbquo osidase (BEANO PO) Take by mouth once daily as needed Active Probiotic Product (PROBIOTIC ADVANCED PO) Take 1 tablet by mouth once daily Active lactase (Lactaid) 3000 units tablet Take 1 (one) tablet by mouth as needed for Other (With dairy products) Active simethicone (Mylicon) 80 MG chew tablet Take 1 (one) tablet by mouth 4 times daily as needed for Gas Pain 120 tablet 11 03/08/20 23 Active acetaminophen (Tylenol) 500 MG tablet Take 1 (one) tablet by mouth every 4 hours as needed for Fever or Pain Maximum allowable Acetaminophen amount = 4 Grams (4000 mg) / 24 hours. Active loperamide (Imodium) 2 MG capsule Take 1 (one) capsule by mouth 2 times daily as needed for Diarrhea Active biotin 2.5 MG tablets Take 1 (one) tablet by mouth once daily Active tacrolimus ER 24hr (Envarsus XR) 4 MG tablet Take 3 (three) tablets by mouth once daily Swallow whole. Do not crush or chew tablets. 270 tablet 4 04/29/19 25 Active tacrolimus ER 24hr (Envarsus XR) 1 MG tablet Take 1 (one) tablet by mouth once daily Swallow whole. Do not crush or chew tablets. 90 tablet 05/17/19 25 Active Ferrous Sulfate 45 MG Take 2 tablets by mouth at bedtime 180 tablet 05/17/19 25 Active magnesium oxide (Mag-Ox) 400 MG tablet Take 1 (one) tablet by mouth once daily Active ascorbic acid (Vitamin C) 500 MG tablet Take 1 (one) tablet by mouth once daily Active potassium citrate (Urocit K 10) 10 MEQ (1080 MG) tablet Take 1 (one) tablet by mouth 2 times daily 60 tablet 11 08/10/19 25 Active levothyroxine (Synthroid) 50 MCG tablet TAKE 1 TABLET BY MOUTH EVERY DAY BEFORE BREAKFAST 90 tablet 3 09/13/19 25 Active predniSONE (Deltasone) 5 MG tablet TAKE 1 TABLET BY MOUTH EVERY DAY WITH BREAKFAST 90 tablet 09/13/19 25 Active folic acid (Folvite) 1 MG tabletIndicati ons:S/P liver transplant (HCC) TAKE 1 TABLET BY MOUTH EVERY DAY 90 tablet 3 09/13/19 25 Active vitamin D3 (Cholecalcifer ol) 25 MCG (1000 UNITS) tablet TAKE 2 TABLETS BY MOUTH ONCE DAILY 180 tablet 3 09/21/19 25 Active Aspirin Low Dose 81 MG tablet TAKE 1 TABLET BY MOUTH EVERY DAY 90 tablet 4 09/21/19 25 Active famotidine (Pepcid) 20 MG tablet Take 1 (one) tablet by mouth 2 times daily as needed for Heartburn 180 tablet 4 11/04/19 25 Active mycophenolate (Myfortic) [address] tablet Take 2 (two) tablets by mouth 2 times daily 360 tablet 4 01/07/20 25 Active mycophenolate (Myfortic) [address] tablet Take 2 (two) tablets by mouth 2 times daily 360 tablet 4 12/16/19 24 025 Discontin ued(Reord er) mycophenolate (Myfortic) [address] tablet Take 2 (two) tablets by mouth 2 times daily 360 tablet 4 12/16/19 25 025 Discontin ued(Reord er) mycophenolate (Myfortic) [address] tablet Take 2 (two) tablets by mouth 2 times daily 360 tablet 4 01/05/20 25 025 Discontin ued(Reord er) Active Problems Problem Noted Date Diagnosed Date Acute pyelonephritis 04/04/2024 Abdominal bloating 12/08/2023 S/P Living unrelated kidney donor on 03/04/2023 03/06/2023 Overview (05/17/2024): Referring Physician: Zaheer Fernandez Transplant Date: 03/04/2023 Donor: UNOS ID: [id number] Match ID: Criteria: LURD KDPI: CMV D+/R- EBV D+/R+ HLA 2 A, 2 B, 2 DR mismatch Recipient: A(31, 33) B(65, 51) DR(1, 11) Donor: cPRA: % Pre-Transplant Summary: Diagnosis: PKD CNI Toxicity Active on wait list 01/27/2023 Kidney Transplant preformed by: Dr Guadalupe Anticipated Immunosuppression: Anti-thymocyte globulin 50 mg IV POD 0, 50 mg POD 1, and 50 mg POD 2 (total 3 mg/kg), (pre-medicate with diphenhydramine and acetaminophen 30-60 minutes prior to each dose) 2. Methylprednisolone IV 500 mg POD 0, 250 mg POD 1, 125 mg POD 2, 60 mg POD 3, 30 mg POD 4. Then prednisone 5 mg PO daily starting POD 5 3. Myfortic 720 mg PO x 1 pre-op, then Myfortic 360 mg PO every 12 hours 4. Tacrolimus XR (Envarsus) 5 mg (0.1 mg/kg) PO daily dose adjusted to goal trough level 8-10 ng/mL Anticipated Opportunistic Infectious Prophylaxis: PJP: Sulfamethoxazole/trimethoprim 800mg/160mg PO MWF x 6 months (09/02/2023) 2. CMV Risk status: High risk. Start Valganciclovir 450 mg MWF for a total of 6 months post-transplant on POD7 or discharge. (May require renal dose adjustment) (09/02/2023) 3. Antifungal prophylaxis: Not indicated Adjustments: Readmissions: Biopsies: Stent Removal scheduled: NO Removed: N\A PD Catheter Removed:N\A UNOS risk labs 04/02/2023 Non-Reactive for HIV RNA Non-Reactive for HCV RNA Non-Reactive for HBV DNA Pre-transplant evaluation for kidney transplant 01/13/2023 Overview (02/27/2023): Images from the original note were not included. Anuj James 1965 Referring Clinical Dietitian: Zaheer Fernandez Listing Date: 01/27/2023 Dialysis Info: Type: Time: NOD, eGFR from cystatin C was 17 on 11/21/2022, GFR from 01/13/2023 was 17 Blood Type: O POS Body mass index is 20.92 kg/m . ALERTS: Paper Winder: n/a CKD IV 2/2 PKD Past Medical History: Diagnosis Date Arthropathy Bacteremia due to Klebsiella pneumoniae CKD (chronic kidney disease), stage IV (CMS/HCC) Diarrhea lots of times, maybe r/t immunosuppression meds she is on Eczema Esophageal reflux History of blood transfusion 40 RBCs, 25 units plasma Hypothyroidism on levothyroxine Kidney stones 6-7 times, passed on own Liver failure (CMS/HCC) Liver transplant recipient (CMS/HCC) 11/28/2022 DDLT r/t PLD Ovarian cyst PLD (polycystic liver disease) 11/29/2015 received liver txp in 11/29/2015 here at [facility], follows with Dr. Agosto Polycystic kidney disease 2000 no hospitalizations d/t infection/cysts rupturing, sister/brother/mom all had it. MRA brain at [facility] Reactive hypoglycemia Rectocele Uncomplicated asthma very very long time ago, hasn't taken any meds in years UTI (urinary tract infection) has had a few, but it has been years until recently as she currently has one and is being treated for it Past Surgical History: Procedure Laterality Date Cholecystectomy, Laparoscopic COLONOSCOPY N/A 08/28/2021 N/A; COLONOSCOPY SCREEN---female provider LIVER TRANSPLANT 11/29/2015 r/t PLD, follows with Dr. Agosto OTHER SURGERY 13 liver aspirations/?paracentesis VESTIBULECTOMY, VULVAR 1995 d/t inflammed glands Transplant Surgery Clinic Appt w/: Dr Guadalupe (scheduled for LD txp 03/04/2023) 02/23/2023 Attestation signed by Ruben Guadalupe MD at 02/24/2023 2:37 PM Transplant Surgeon Note I have seen and examined the patient, I have personally reviewed labs. Ms. James is post liver transplant for Polycystic liver disease. She has PCKD and is scheduled to undergo a LD Renal transplant next week with me. Most likely cause of renal failure is secondary to calcineurin inhibitor toxicity. GFR is 17cc/min I have reviewed everything and agree with the resident's note. Plan for LD next week Mar 04, 2023. 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 Scheduled for 03/04. I spent 30 minutes with discussing the risks and benefits of kidney transplant including the need for lifelong immunotherapy, the need for the patient to be compliant with the immunotherapy, the need for a lifelong relationship with a health care provider and the need to have labs checked frequently. We also talked about the risks of surgery including but not limited to the following: Anesthetic concerns including heart attack, stroke, or Need for endotracheal intubation and possibility of prolonged intubation Intraoperative and postoperative bleeding Postoperative hematoma or wound infection requiring return to OR Renal artery and vein thrombosis requiring return to OR and possible explantation Ureteric stricture or leak requiring interventional procedures and/or reoperation Delayed graft function Risk of primary nonfunction Increased risk of infection and malignancy remotely I believe she is a Good candidate for kidney transplant. At this time the patient needs the following prior to committee presentation: None Plan: - PAT completed today before clinic. Labs (including final cross match), EKG, CXR pending - 2nd covid swab scheduled for Friday 03/02 at 10 am - Dr Sánchez discussed txp with pt and answered all questions - Dr Guadalupe discussed txp surgery and answered all questions - Induction Thymo 3 - OR 03/04 All listing decisions will be made in the listing committee and are final. Patient seen and discussed with Dr. Guadalupe. Diogo Chaney MD 02/23/23 Transplant Surgery Clinic Appt w/: Dr Aguirre Date: 01/13/2023 Attestation signed by Moustapha Aguirre MD at 01/27/2023 3:55 PM Seen and examined. Agree with above with my additions and corrections made in the text. Good candidate. Francie Aguirre MD rubber liner Transplant Surgery [facility] Patient with chronic illness - ESRD - that is a sustained threat to life. I have reviewed and interpreted her labs (cbc, cmp, pth, mmr and hepatitis serologies) and imaging (mri abdomen) independently to arrive at the conclusions outlined in the note. I have discussed her case with nephrology, SW, and RD. She is here to discuss major elective surgery (kidney transplant) with established risk factors (immunosuppression prior liver transplant.) Assessment/Plan: Ms. James is a 57 year old with ADPKD as a primary cause of kidney disease, with possible component of tacrolimus toxicity. Patient is currently not on dialysis. We spent 30 minutes with discussing the risks and benefits of kidney transplant including the need for lifelong immunotherapy, the need for the patient to be compliant with the immunotherapy, the need for a lifelong relationship with a health care provider and the need to have labs checked frequently. We also talked about the risks of surgery including but not limited to the following: Anesthetic concerns including heart attack, stroke, or Need for endotracheal intubation and possibility of prolonged intubation Intraoperative and postoperative bleeding Postoperative hematoma or wound infection requiring return to OR Renal artery and vein thrombosis requiring return to OR and possible explantation Ureteric stricture or leak requiring interventional procedures and/or reoperation Delayed graft function Risk of primary nonfunction Increased risk of infection and malignancy remotely We discussed the possibility of receiving an HCV+ organ. We discussed the antiviral treatment and need for compliance to achieve SVR; the cure rate of 98% with DAA and the possibility of repeating a course if not cured; and the possibility of complications prior to and while undergoing treatment. These include headaches, nausea, cryoglobulinemia and DAVID, and encephalitis as well as possible hepatitis-induced injury to the graft. At this time the patient is amenable. We discussed the possibility of receiving an increased risk organ. We discussed the risk factors that place kidneys in this category and the relative risk of transmission from an increased risk donor. We compared that risk with the risk of remaining on dialysis and the risk of hepatitis transmission on dialysis. At this time the patient is amenable. We discussed the possibility of receiving an organ with a KDPI of >85%. We discussed the lower mean survival for these organs and the increased rates of delayed graft function. At this time the patient is amenable. We believe Ms. James is a Good candidate for kidney transplant. At this time the patient needs the following prior to committee presentation: - pelvic US to review ovarian cyst - pap smear records All listing decisions will be made in the listing committee and are final. Coordinator's clinic note: 01/13/2023 Post Liver txp - pt states she was on cellcept first but had no appetite then switched to Myfortic. She said she still had no appetite with that. Pt states while on the myfortic she had gastroparesis/belching. Pt states she had an infection outside of her liver, they had to flush it out and with that, her colon was Traumatized. She states everything had to calm down before it started working. - pt states she severe diarrhea for 3 years even after stopping myfortic which she was only on for 4 months. She said once her tacro was decreased, her diarrhea slowed down though she still had it. - pt states she retained medications at first as she had high immunosuppression levels. - Had infection on outside of liver, flush Everything, colon traumatized, so everything had to calm down before it started working - pt states that she is a bleeder and that her BPs drop when she is in the OR - pt states she has PONV - Dr. Aguirre added to history Nephrology Clinic Appt w/: Dr. Sánchez (scheduled for LD txp 03/04/2023) Date: 02/23/2023 (note pending) Nephrology Clinic Appt w/: Dr. 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 After liver txp her serum creatinine levels were ranging between 1.7-1.9 mg/dL. Her kidney dysfunction initially thought to be due to CNI toxicity. She also has multiple kidney cysts. Her serum creatinine level was 2.2 mg/dL and increased to 3.47 mg/dL on 09/29/22. Patient had an episode of passing kidney stone in July and November 2022. Dialysis History: Not on dialysis 17 mL/min (01/13/23) Assessments and Recommendations: Anuj James was seen today for kidney transplant evaluation. Risks and benefits of transplant were discussed including the benefits of living kidney transplant. We discussed high KDPI kidneys and kidneys from donors with PHS risk factors. All questions and concerns were addressed. 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) - Not on hemodialysis - Serum creatinine level 3.09 mg/dL and K is 5.1 mmol/L, eGFR 17 mL/min - History of kidney stones - Serum oxalate 2.3 - Family history of kidney disease - Information about transplantation options were given - Low potassium diet is planned - Cranial MRI did not show any aneurysm - Abdominal MRI images will be requested - Patient mentioned she has the history of MYF/MMF associated GI effects after the liver transplant 2) Liver transplant recipient - Functioning transplant liver - On Prograf 3 mg AM and 2 mg PM - Immunosuppressive treatment managed by Transplant Hepatology 3) Cardiovascular Disease - Due to the risk of CAD in patients with CKD Stage 5, dobutamine non-invasive stress testing/LHC was performed on and showed - DSE is completed and target heart rate is achieved. Left ventricle size is normal. Normal wall thickness. Ventricular mass is normal. Hyperdynamic systolic function. EF by 2D Ledbetter biplane is 76%. Normal wall motion. Normal diastolic function. 4) Hypertension - BP level is 136/81 mmHg - Not on any antihypertensive medication and home measurements are lower 5) Hematological disorders - Anemia of kidney disease - Hgb 9.1 g/dL on 01/13/23 - TSAT 22 % - Serum ferritin 104 ng/mL - Plan to restart Ferrous sulfate tb BID restarted - On Epoietin 4000 U weekly 6) CKD Bone and Mineral Disease - Serum Ca 9.7 mg/dL, P 5.6 mg/dL, albumin g/dL, PTH 147.3 pg/mL on 12/15/22 - Vitamin D3 46 ng/mL - On Sevelamer 800 mg tb TID po 7) Infections - Viral hepatitis markers negative. AntiHAV IgG (+), AntiHBV IgG (+) - CMV IgG (-) and EBV IgG (+) 8) Immunological Assessment - History of sensitization: (+), Blood transfussion (+), History of solid organ transplant (+) - PRA screening 0% and 1% on 12/15/22 Overall Anuj Jamse is a good patient for kidney transplantation. Abdominal MRI images will be requested, woman wellness exam and ovarian cyst assessment through an US is planned. She has potential living kidney donor candidate. Patient is seen in the clinic and examined. Plan of care is discussed. Time spent during chart review and patient visit was over 75 mins. Zaheer Fernandez MD Other Consults: Hepatology: 11/21/2022 - pt follows with Dr. Agosto (nxt appt 06/02/2023) Transplant Date: 11/29/2015 Donor: Standard criteria donor [id number] CMV D-/R-, EBV D+ Pre-Transplant Summary: ESLD secondary to polycystic liver disease. Listed for transplant on 10/24/2015. MELD exception points of 28. [place] MELD day of transplant was 14. Liver Transplant: 11/29/2015 (Dr Guadalupe) Description of Procedure: 1. Hepatectomy 2. Cholecystectomy 3. Veno-venous bypass 4. Orthotopic liver transplant Large polycystic liver weighing approximately 17 lbs. Cysts containing simple fluid and purulent appearing fluid- sent for culture. Abdomen copiously irrigated with amphotericin and bacitracin solutions.Required 40+ units of RBCs. Discharged home on 12/11/2015. Immunosuppression: Methlpred on POD 0,1,2, 3, 4 Prednisone 20mg daily Cellcept 750mg BID started POD . Tacrolimus started POD Prophylaxis: Acyclovir 400mg BID x 3 months for CMV Bactrim SS daily x 3 months for PCP Readmissions: 04/01 - 04/12/2016: dehydration, esophagitis (negative for CMV or fungal). Moderate gastroparesis. Improved with GI cocktail. Biopsies: Explant 11/29/2015 LIVER, EXPLANT, TOTAL HEPATECTOMY (B): - HEPATIC PARENCHYMA WITH NUMEROUS BENIGN CYSTS LINED BY CUBOIDAL AND FLAT BILIARY EPITHELIUM IN A BACKGROUND OF FIBROUS HYALINIZATION, CALCIFICATION, AND PATHCY CHRONIC INFLAMMATION, CONSISTENT WITH POLYCYSTIC LIVER DISEASE - FOCI OF [place] COMPLEX PRESENT - NO CARCINOMA IDENTIFIED - SURGICAL RESECTION MARGINS UNREMARKABLE - NO FEATUIRES OF CHRONIC HEPATITIS, STEATOSIS OR FIBROSIS IDENTIFIED - GALLBLADDER WITH MILD CHRONIC CHOLECYSTITIS Subjective: Being w/u for living donor kidney transplant No further bloating with change in diet No renal stone symptoms denies abdominal pain or diarrhea or GERD symptoms Unchanged CKD and hypothyroidism Chief Complaint Patient presents with Liver Transplant Follow-up Colonoscopy Impression: - Diverticulosis in the sigmoid colon. - The examination was otherwise normal on direct and retroflexion views. - No specimens collected. Recommendation: - Repeat colonoscopy in 5 years for screening purposes. 04/08/16 NM gastric emptying Moderate gastroparesis based on 30% retention at 4 hours after ingestion of meal. Study is somewhat limited since the patient could only eat a portion of the medial. 11/2016 colonoscopy Impression: - The examined portion of the ileum was normal. - The entire examined colon is normal. Right and left colon biopsies taken in separate jars. Recommendation: - Repeat colonoscopy in 10 years for screening purposes. LARGE INTESTINE, RANDOM RIGHT COLON, BIOPSY (D): - NO HISTOPATHOLOGIC ABNORMALITY - NO LYMPHOCYTIC OR COLLAGENOUS COLITIS LARGE INTESTINE, RANDOM LEFT COLON, BIOPSY (E): - NO HISTOPATHOLOGIC ABNORMALITY - NO LYMPHOCYTIC OR COLLAGENOUS COLITIS 08/2021 Bone density BONE MINERAL DENSITY (BMD) lumbar spine (L1-4): Normal; T-score -0.9 BONE MINERAL DENSITY (BMD) left femoral neck: osteopenia; T-score -1.9 FRAX 10 year fracture risk Major osteoporotic fracture: 11% Hip fracture: 1.4% Labs and test results were reviewed with the patient Impression: 1. OLT 11/29/2015 for polycystic liver disease, excellent hepatic function, normal liver tests 2. Diarrhea, episode of c dif stable ? component of IBS, resolved 3. Hypothyroid clinically euthyroid, per PCP 4. Esophagitis/gastroparesis, clinically stable Now controlled only on famotidine continue 5. CKD 4 polycystic kidney disease ? Component from Tac toxicity , Cr relatively stable, follows with nephrology being w/u for renal tx 6. senior living immunosuppression, high risk medication requiring monitoring, on tac goal 3-5 given CKD and low immunologic risk, will lower Tac goal to 2-4 So at gaol level 7. Recurrent yeast infections controlled on boric acid stable 8. Osteopenia stable 9. HTN blood pressure good Plan: 1. Labs 2 wks then q 1 month x 3 then q 3 months 2. F/u 6 months 3. annual skin checks 4. F/U 6 month 5. COVID flu vaccine due in fall Pt instructions: Labs every 3 months Annual dermatology Get COVID and flu shot in the fall Pathology: 11/29/2015 FINAL DIAGNOSIS: DONOR GALLBLADDER, CHOLECTYSTECTOMY (A): - CHRONIC CHOLECYSTITIS, MILD - CHOLESTEROLOSIS, MINIMAL LIVER, EXPLANT, TOTAL HEPATECTOMY (B): - HEPATIC PARENCHYMA WITH NUMEROUS BENIGN CYSTS LINED BY CUBOIDAL AND FLAT BILIARY EPITHELIUM IN A BACKGROUND OF FIBROUS HYALINIZATION, CALCIFICATION, AND PATHCY CHRONIC INFLAMMATION, CONSISTENT WITH POLYCYSTIC LIVER DISEASE - FOCI OF [place] COMPLEX PRESENT - NO CARCINOMA IDENTIFIED - SURGICAL RESECTION MARGINS UNREMARKABLE - NO FEATUIRES OF CHRONIC HEPATITIS, STEATOSIS OR FIBROSIS IDENTIFIED - GALLBLADDER WITH MILD CHRONIC CHOLECYSTITIS Pertinent Previous Committee Presentations: [facility] note: 01/22/2023 Induction Therapy: 3mg/kg Thymo Committee Discussion Details: Pt's case presented at [facility] today for approval to list. HH and evaluation testing reviewed but not limited to: - pt is a prior Liver txp back from 11/2015 d/t PLD here at [facility]. Pt following with liver team. - pt is NOD, reviewed most recent GFR and most recent eGFR from cystatin C - MRI abd imaging reviewed by Dr. Aguirre in clinic, no concerns that kidney(s) need to come out though she still wanted to review at [facility] with team. Per team, no kidney(s) need to come out. Calcs are ok. - CT pelvis calcs ok but showed ovarian cyst on imaging. Pt followed up with [facility], showed simple cyst, nothing to do - Dr. Fernandez and Dr. Goldman spoke to team about pt's post op recovery s/p liver txp with blocked bowel and with lots of diarrhea. - team aware pt with potential LD, who is almost done with her work up. - RD - no concerns - SW - no concerns - FC - will need LMN Per team, ok to list. Labs: 02/23/2023 (PAT) PTH: 185.3 A1c: 4.5 Glucose: 86 GFR: 15 Serologies: +HepAAb, +HepBsAb, All others negative CMV Igg: Negative Albumin: 4.2 PTH/INR: 13.0 / 1.0 Phos: 5.1 Ma.9 Protein/Creatinine ratio: 0.27 HCG: negative UA Cx: body sia COVID Swab: negative PRA: 0, 0 Platelets: 144 Labs: 12/15/2022 PTH: 147.3 A1c: 4.9 Glucose: GFR: 17 (01/13) Serologies: +HepAAb, +HepBsAb, All others negative CMV Igg: Negative EBV Igg: Positive Varicella: Immune MMR: Immune Toxo: 11.9 Strongyloides: 0.3 Albumin: 4.4 (11/11/2022) Tox Screen: All negative PRA: Class 1 Class 2: 0,1 Oxalate: 2.3 Pathology: 06/01/2019 Final Diagnosis Ureter, right stone, removal: - Calculus (gross only). Stone analysis: 05/31/2019 Kidney Biopsy: none Renasight: 09/18/2022 Echo: 01/08/2023 Interpretation Summary Left Ventricle: Left ventricle size is normal. Normal wall thickness. Ventricular mass is normal. Hyperdynamic systolic function. EF by 2D Ledbetter biplane is 76%. Normal wall motion. Normal diastolic function. Vitals Height Weight BSA (Calculated) Pulse BP 1.638 m (5' 4.5) 56.2 kg (123 lb 12.8 oz) 1.6 71 142/81 Myocardial Findings Left Ventricle Left ventricle size is normal. Normal wall thickness. Ventricular mass is normal. Hyperdynamic systolic function. EF by 2D Ledbetter biplane is 76%. Normal wall motion. Normal diastolic function. Right Ventricle Right ventricle size is normal. Normal systolic function. Left Atrium Left atrium size is normal. Right Atrium Right atrium size is normal. IVC/SVC IVC diameter is less than or equal to 21 mm and decreases greater than 50% during inspiration; therefore the estimated right atrial pressure is normal (~3 mmHg). Mitral Valve Valve structure is normal. Mild regurgitation. No stenosis. Tricuspid Valve Valve structure is normal. Mild regurgitation. The pulmonary artery systolic pressure is normal (under 35 mmHg). No stenosis. Aortic Valve Valve structure is trileaflet. No regurgitation. No stenosis. Pulmonic Valve Valve structure is normal. No regurgitation. No stenosis. Aorta Normal sized sinus of Valsalva (aortic root) and ascending aorta. Pericardium No pericardial effusion. DSE: 01/08/2023 Interpretation Summary ECG: The ECG was negative for ischemia. Left ventricle at peak stress: Systolic function improved from rest. Wall motion is augmented normally. No echocardiographic evidence of ischemia. Study Details Study quality was good. A limited 2D stress echocardiogram was performed. The apical and parasternal views were obtained. Definity ultrasound enhancing agent used. Patient exhibited sinus rhythm. Vitals Height Weight BSA (Calculated) Pulse BP 1.638 m (5' 4.5) 56.2 kg (123 lb 12.8 oz) 1.6 99 173/79 Stress Findings A pharmacological stress test was performed using dobutamine. The peak dobutamine dose was 30.0 mcg/kg/min.The patient reported no symptoms during the stress test. The patient reached the end of the protocol. The target heart rate was 139 bpm. A peak heart rate of 141 bpm (87 % of max predicted heart rate) was achieved. The patient's resting blood pressure was 142/81 mmHg. The patient's peak stress blood pressure was 189/99 mmHg. ECG Resting ECG: Normal. The ECG was negative for ischemia. Post-Stress Echo Echo Post Stress Left ventricle at peak stress: Systolic function improved from rest. Wall motion is augmented normally. Study Impression No echocardiographic evidence of ischemia. Stress Measurements Pharma Data Dobut peak dose 30 mcg/kg/min Heart Rate Baseline HR 58 bpm Stress peak HR 141 bpm Max Age Predicted HR 163 bpm Target HR 139 bpm Max HR Percent 87 % Blood Pressure Baseline BP 142/81 mmHg Post peak BP 189/99 mmHg Recovery BP 173/79 mmHg Stress Echo Measurements Measurement Resting Low Stress Peak Stress Recovery dose 30 mcg/kg/min HR 58 bpm 93 bpm 141 bpm 99 bpm BP 142/81 mmHg 149/74 mmHg 189/99 mmHg 173/79 mmHg LHC: n/a CXR: 02/23/2023 FINDINGS/IMPRESSION: There is no focal consolidation, pleural effusion, or pneumothorax. The mediastinal and cardiac contours are normal. No acute osseous abnormality is seen. CT pelvis non-contrast: 01/13/2023 FINDINGS: The visualized bowel loops are normal in caliber. There is no free fluid in the pelvis. The appendix is normal. The uterus is normal. No adnexal mass. No calcifications of the visualized abdominal aorta or the iliac arteries. No suspicious osseous lytic or blastic lesion in the pelvis. There is a bone island in the right iliac bone. IMPRESSION: 1. No significant calcifications of the iliac arteries. MRI abd w/o contrast: 11/01/2022 - scanned into [facility] Renal US: 10/09/2022 scanned into [facility] MRA brain w/o contrast: 10/15/2022 - records scanned in under media Dexa scan: 09/06/2021 FINDINGS: BONE MINERAL DENSITY (BMD) lumbar spine (L1-4): Normal; T-score -0.9 BONE MINERAL DENSITY (BMD) left femoral neck: osteopenia; T-score -1.9 FRAX 10 year fracture risk Major osteoporotic fracture: 11% Hip fracture: 1.4% Definitions: T-score = Standard Deviation Normal: A value for bone mineral density(BMD) within 1 standard deviation of the young adult reference mean. (T-score above -1) Low bone mass(osteopenia): A value for bone mineral density(BMD) more than 1 standard deviation below the young adult mean, but less than 2.5 standard deviations below the young adult mean. ( T-score between -1 and -2.5) Osteoporosis: A value for bone mineral density 2.5 standard deviations or more below the young adult mean. ( T-score at or below -2.5) Severe osteoporosis: Osteoporosis + the presence of one or more fragility fractures. Please note that T-score values are important in determining increased risk for fractures. The T-score represents the standard deviation above or below the mean bone mineral density for young adults. With each -1 standard deviation decrease in bone mineral density, the risk for fracture doubles exponentially. A T-score of -1 will double the risk , and -2 will be 4 times the risk. As a rule of thumb, a T-score of -1 to -2.5 indicates increasing degrees of osteopenia. PPD: 12/15/2022 - quant gold negative Colonoscopy: 08/28/2021 Findings: The perianal and digital rectal examinations were normal. A few small-mouthed diverticula were found in the sigmoid colon. The exam was otherwise without abnormality on direct and retroflexion views. Estimated Blood Loss: Estimated blood loss: none. Complications: No immediate complications. Impression: - Diverticulosis in the sigmoid colon. - The examination was otherwise normal on direct and retroflexion views. - No specimens collected. Recommendation: - Resume previous diet. - Continue present medications. - Repeat colonoscopy in 5 years for screening purposes. - Return to referring physician as previously scheduled. EGD: 11/26/2016 - records in care everywhere Findings: The Z-line was regular and was found 38 cm from the incisors. There is no endoscopic evidence of esophagitis in the entire esophagus. Mucosal changes including ringed esophagus were found in the middle third of the esophagus. Biopsies were taken with a cold forceps for histology. Verification of patient identification for the specimen was done by the nurse using the patient's name and date. Estimated blood loss was minimal. Patchy moderately erythematous mucosa without bleeding was found on the greater curvature of the gastric body and in the gastric antrum. Biopsies were taken with a cold forceps for histology. The exam of the stomach was otherwise normal. The examined duodenum was normal. Biopsies were taken with a cold forceps for histology. Fluid aspiration for cytology was performed. Estimated Blood Loss: Estimated blood loss was minimal. Complications: No immediate complications. Impression: - Z-line regular, 38 cm from the incisors. - Esophageal mucosal changes suspicious for eosinophilic esophagitis. Biopsied. - Erythematous mucosa in the greater curvature of the gastric body and antrum. Biopsied. - Normal examined duodenum. Fluid aspiration performed. Recommendation: - Patient has a contact number available for emergencies. The signs and symptoms of potential delayed complications were discussed with the patient. Return to normal activities tomorrow. Written discharge instructions were provided to the patient. - Resume previous diet. - Continue present medications. - Await pathology results. - Perform a colonoscopy now. Pathology: 11/26/2016 FINAL DIAGNOSIS: STOMACH, BIOPSY (A): - MILD CHRONIC GASTRITIS AND PROTON PUMP INHIBITOR EFFECT - NO ACTIVE INFLAMMATION OR H. PYLORI ORGANISMS (ROUTINE H&E EXAMINATION) ESOPHAGUS, DISTAL, BIOPSY (B): - SQUAMOCOLUMNAR MUCOSA WITH INTESTINAL METAPLASIA - NO DYSPLASIA - NO INCREASED INTRAEPITHELIAL EOSINOPHILS ESOPHAGUS, PROXIMAL, BIOPSY (C): - SQUAMOUS MUCOSA WITH NO HISTOPATHOLOGIC ABNORMALITY - NO INCREASED INTRAEPITHELIAL EOSINOPHILS LARGE INTESTINE, RANDOM RIGHT COLON, BIOPSY (D): - NO HISTOPATHOLOGIC ABNORMALITY - NO LYMPHOCYTIC OR COLLAGENOUS COLITIS LARGE INTESTINE, RANDOM LEFT COLON, BIOPSY (E): - NO HISTOPATHOLOGIC ABNORMALITY - NO LYMPHOCYTIC OR COLLAGENOUS COLITIS Mammo: 12/03/2022 - scanned in under media OBGYN: Pap and HPV: 2022 TVUS: 01/16/2023 (follow up to ovarian cyst seen on CT pelvis imaging) Panorex/Dental: SW: 01/13/2023 Clinical Social Work Impression: It is the impression of this pediatric social worker that Anuj James has several positive factors for kidney transplant candidacy including knowledge of illness, sufficient insurance coverage, stable financial situation for post transplant needs, no concerns regarding substance abuse, adequate support system, and appropriate discharge plan. Outstanding -DISTRIBUTION SALES REPRESENTATIVE to confirm secondary caregiver -Toxicology screen is pending Plan: hospital social worker to provide supportive services as needed. Patient appears to be a reasonable candidate for transplant from a psychosocial perspective. Post transplant arrangement forms are needed prior to being listed. Psychiatric Consult Recommended: NO Transplant International Controller: Chloé Mahajan LMSW GROUNDING ENGINEER forms: Transplant Caregiver Confirmation Note Caregiver Confirmation Date Primary Name of Primary: Wale James Relationship: Spouse - Confirmed during initial assessment 01/13/23 - GROUNDING ENGINEER form received on 12/17/22 Secondary Name of Secondary: Relationship: Sarah Metcalf - Confirmed via telephone on 01/15/23 Post Transplant Arrangement Forms scanned into media on this date. RD: 01/08/2023 Transplant Nutrition Evaluation BMI: Body mass index is 20.92 kg/m . BMI Range: Normal, Pt is considered to be a good candidate for a Kidney Transplant from a Nutrition standpoint. Nutrition Recommendations/Pt instructed to: Renal diet /Transplant Diet: Pt is eating more fruits, vegetables, dairy, 1/2 PRO shake, less meat. Pt is on a P-binder Exercise Pt takes walks or tones daily. Nutrition Handouts Given along with RD contact Weight Assessment: Wt History: Recent Weights/Methods 11/21/2022 1241 01/08/2023 1324 01/08/2023 1400 Weight: 56.4 kg (124 lb 6.4 oz) 57 kg (125 lb 10.6 oz) 56.2 kg (123 lb 12.8 oz) Weight Method (Utilize Scales): -- -- Standing Height: 163.8 cm (5' 4.5) Weight: 56.2 kg (123 lb 12.8 oz) BMI: Body mass index is 20.92 kg/m . BMI Range: Normal IBW/lb (Calculated) Female: 122.5, Monitoring: Weight Diet Compliance Re-Evaluation: Annual f/u if listed or per Transplant Team Referral Ana Tovar RD/LD Items Still Pending: Osteopenia of neck of femur 10/01/2021 Recurrent nephrolithiasis 05/17/2019 Overview (05/17/2024): H/O passing multiple stones, 3-5 at a time, since 2018. CT Scan on 03/07/24: Multiple stones in Lt kidney, largest was 7 mm. 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 Listed for transplant on 10/24/2015. MELD exception points of 28. [place] MELD day of transplant was 14. Liver Transplant: 11/29/2015 (Dr Guadalupe) Description of Procedure: 1. Hepatectomy 2. Cholecystectomy 3. Veno-venous bypass 4. Orthotopic liver transplant Large polycystic liver weighing approximately 17 lbs. Cysts containing simple fluid and purulent appearing fluid- sent for culture. Abdomen copiously irrigated with amphotericin and bacitracin solutions.Required 40+ units of RBCs. Discharged home on 12/11/2015. Immunosuppression: Methlpred on POD 0,1,2, 3, 4 Prednisone 20mg daily Cellcept 750mg BID started POD . Tacrolimus started POD Prophylaxis: Acyclovir 400mg BID x 3 months for CMV Bactrim SS daily x 3 months for PCP Adjustments: Readmissions: 04/01 - 04/12/2016: dehydration, esophagitis (negative for CMV or fungal). Moderate gastroparesis. Improved with GI cocktail. Biopsies: Explant 11/29/2015 LIVER, EXPLANT, TOTAL HEPATECTOMY (B): - HEPATIC PARENCHYMA WITH NUMEROUS BENIGN CYSTS LINED BY CUBOIDAL AND FLAT BILIARY EPITHELIUM IN A BACKGROUND OF FIBROUS HYALINIZATION, CALCIFICATION, AND PATHCY CHRONIC INFLAMMATION, CONSISTENT WITH POLYCYSTIC LIVER DISEASE - FOCI OF [place] COMPLEX PRESENT - NO CARCINOMA IDENTIFIED - SURGICAL RESECTION MARGINS UNREMARKABLE - NO FEATUIRES OF CHRONIC HEPATITIS, STEATOSIS OR FIBROSIS IDENTIFIED - GALLBLADDER WITH MILD CHRONIC CHOLECYSTITIS CKD stage 3a, GFR 45-59 ml/min 04/28/2017 Overview (05/17/2024): SCr: 0.9-1.1, 1.2-1.4, Gastroesophageal reflux disease with esophagitis 12/21/2016 Polycystic kidney disease 09/15/2015 Assessment & Plan (09/15/2015 11:54 AM CDT): Dx in 2000. Follows with Dr. Martini and with [facility]. Cr and renal function appear stable at 1.3 (unknown baseline) Plan: - IV fluids for sepsis, follow RFT and urine output - follow up with [facility] [place] Assessment & Plan (09/15/2015 1:25 AM CDT): Dx in 2000. Follows with Dr. Martini and with [facility]. Cr and renal function appear stable at 1.3 (unknown baseline) Plan: - IV fluids for sepsis - follow up with [facility] and [place] Polycystic liver disease 09/15/2015 Assessment & Plan (09/15/2015 11:53 AM CDT): Pt has a hx of liver failure from polycystic disease, has varices. Taking pasireotide in a [place] study Plan: - GI consult for any further recs - management for sepsis as above Assessment & Plan (09/15/2015 1:44 AM CDT): Pt has a hx of liver failure from polycystic disease, has varices. Taking paritreotide in a [place] study Plan: - GI consult for any further recs - management for sepsis as above Hypothyroidism 09/15/2015 Assessment & Plan (09/15/2015 11:55 AM CDT): - Continue home dose of levothyroxine 50 mcg Resolved Problems Problem Noted Date Diagnosed Date Resolved Date White coat syndrome without diagnosis of hypertension 06/09/2023 08/10/2024 Diarrhea 03/14/2020 04/11/2020 Abdominal pain, right lower quadrant 05/16/2019 03/04/2023 C. difficile colitis 04/28/2017 023 Overview (01/12/2018): Overview: recurrent Septic shock 09/15/2015 01/12/2018 Assessment & Plan (09/15/2015 11:53 AM CDT): Presents with hypotension, fevers, chills, abdominal tenderness. Source: GI - Cyst infection vs pyelonephritis vs diverticulitis vs partial SBO Source control: none - no ascitic fluid for paracentesis on US Cultures: Prelim blood cultures growing Klebsiella, BC and UC are pending Antimicrobials: Aztreonam, Vanc Immunity: Immune Volume status: euvolemic Urine output: Good Hemodynamics: weaned off pressors Perfusion: adequate, lactic acid trending down IV Access: RIJ TLC Plan: - f/u BC - Aztreonam, Vanc. De escalate the abx with culture reports - Target MAP of above 65 - Trend lactic acid, RFT - CT abdomen and pelvis with oral contrast to look for obstruction Assessment & Plan (09/15/2015 1:41 AM CDT): Presents with hypotension, fevers, chills, abdominal tenderness. Strongly considering a ruptured liver cyst. High suspicion for e coli infection. Source: GI - ruptured liver cyst, also consider UTI/pyelonephritis Source control: none - no ascitic fluid for paracentesis on US Cultures: BC and UC are pending Antimicrobials: aztreonam, flagyl, cipro Immunity: multiple comorbidities Volume status: euvolemic Urine output: will monitor Hemodynamics: pressors, wean as tolerated Perfusion: adequate, trend lactic acid IV Access: RIJ TLC Plan: - f/u BC - cipro/flagyl/aztreonam - GI consult - levophed, wean as tolerated Partial small bowel obstruction 09/15/2015 03/04/2023 Decompensation of cirrhosis of liver 01/12/2018 SOB (shortness of breath) Elevated liver enzymes 11/04 Hepatic encephalopathy 01/12 Encounters Date Type Department Care Team Description 01/06/2025 Refill [facility] [address] [place] [address] [phone] Colton Amin, PRECISION ASSEMBLER REFILL 01/06/2025 Orders Only [facility] - Nephrology [address] [place] [address] [phone] Mendel, Chiquita E, PRODUCT MARKETING ANALYST-PROJECT MANAGEMENT PROFESSIONAL Nephrolithiasis; S/P liver transplant in 11/29/2015 ([facility]); Long-term use of immunosuppressant medication; Vitamin D deficiency; Anemia in stage 2 chronic kidney disease 01/03/2025 Refill [facility] - Nephrology [address] [place] [address] [phone] Mendel, Chiquita E, PRODUCT MARKETING ANALYST-PROJECT MANAGEMENT PROFESSIONAL MEDICATION REFILL 12/30/2024 Orders Only [facility] - Nephrology [address] [place] [address] [phone] Mendel, Chiquita E, PRODUCT MARKETING ANALYST-PROJECT MANAGEMENT PROFESSIONAL Nephrolithiasis; S/P liver transplant in 11/29/2015 ([facility]); Long-term use of immunosuppressant medication; Vitamin D deficiency; Anemia in stage 2 chronic kidney disease 12/23/2024 Orders Only [facility] - Nephrology [address] [place] [address] [phone] Mendel, Chiquita E, PRODUCT MARKETING ANALYST-PROJECT MANAGEMENT PROFESSIONAL Nephrolithiasis; S/P liver transplant in 11/29/2015 ([facility]); Long-term use of immunosuppressant medication; Vitamin D deficiency; Anemia in stage 2 chronic kidney disease 12/16/2024 Orders Only [facility] - Nephrology [address] [place] [address] [phone] Mendel, Chiquita E, PRODUCT MARKETING ANALYST-PROJECT MANAGEMENT PROFESSIONAL Nephrolithiasis; S/P liver transplant in 11/29/2015 ([facility]); Long-term use of immunosuppressant medication; Vitamin D deficiency; Anemia in stage 2 chronic kidney disease 12/15/2024 Refill [facility] - Nephrology [address] [place] [address] [phone] Claudine Jovel RN Refill Request 2024 Orders Only [facility] - Nephrology [address] [place] [address] [phone] Mendel, Chiquita E, PRODUCT MARKETING ANALYST-PROJECT MANAGEMENT PROFESSIONAL Nephrolithiasis; S/P liver transplant in 11/29/2015 ([facility]); Long-term use of immunosuppressant medication; Vitamin D deficiency; Anemia in stage 2 chronic kidney disease 12/02/2024 Orders Only [facility] - Nephrology [address] [place] [address] [phone] Mendel, Chiquita E, PRODUCT MARKETING ANALYST-PROJECT MANAGEMENT PROFESSIONAL Nephrolithiasis; S/P liver transplant in 11/29/2015 ([facility]); Long-term use of immunosuppressant medication; Vitamin D deficiency; Anemia in stage 2 chronic kidney disease 11/25/2024 Telephone [facility] [address] [place] [address] [phone] Mendel, Chiquita E, PRODUCT MARKETING ANALYST-PROJECT MANAGEMENT PROFESSIONAL Med Question 11/25/2024 Orders Only [facility] - Nephrology [address] [place] [address] [phone] Mendel, Chiquita E, PRODUCT MARKETING ANALYST-PROJECT MANAGEMENT PROFESSIONAL Nephrolithiasis; S/P liver transplant in 11/29/2015 ([facility]); Long-term use of immunosuppressant medication; Vitamin D deficiency; Anemia in stage 2 chronic kidney disease 11/18/2024 Orders Only [facility] - Nephrology [address] [place] [address] [phone] Mendel, Chiquita E, PRODUCT MARKETING ANALYST-PROJECT MANAGEMENT PROFESSIONAL Nephrolithiasis; S/P liver transplant in 11/29/2015 ([facility]); Long-term use of immunosuppressant medication; Vitamin D deficiency; Anemia in stage 2 chronic kidney disease 11/11/2024 Orders Only [facility] - Nephrology [address] [place] [phone] Chiquita Oglesby APRN-PROJECT MANAGEMENT PROFESSIONAL Nephrolithiasis; S/P liver transplant in 11/29/2015 ([facility]); Long-term use of immunosuppressant medication; Vitamin D deficiency; Anemia in stage 2 chronic kidney disease 11/04/2024 Orders Only [facility] - Nephrology [address] [place] [address] [phone] Chiquita Oglesby APRN-PROJECT MANAGEMENT PROFESSIONAL Nephrolithiasis; S/P liver transplant in 11/29/2015 ([facility]); Long-term use of immunosuppressant medication; Vitamin D deficiency; Anemia in stage 2 chronic kidney disease 11/03/2024 3:40 PM CDT Office Visit [facility] - Nephrology [address] [place] [address] [phone] Long-term use of immunosuppressant medication (Primary Dx); Nephrolithiasis; S/P liver transplant in 11/29/2015 ([facility]); Vitamin D deficiency; Anemia in stage 2 chronic kidney disease; Chronic kidney disease-mineral and bone disorder; Hyperparathyroidism ([facility]); Kidney replaced by transplant ([facility]) 11/03/2024 Travel 10/28/2024 Orders Only [facility] - Nephrology [address] [place] [address] [phone] Zaheer Fernandez MD Encounter for monitoring tacrolimus therapy; Kidney replaced by transplant ([facility]); Vitamin D deficiency; Anemia of chronic renal failure, unspecified CKD stage; Chronic kidney disease-mineral and bone disorder; S/P living-donor kidney transplantation ([facility]); CKD stage 3a, GFR 45-59 ml/min ([facility]); Polycystic kidney disease; Recurrent nephrolithiasis; Other hyperlipidemia; Hyperparathyroidism ([facility]); S/P liver transplant ([facility]); Kidney transplanted ([facility]); Polycystic kidney, autosomal dominant; PKD (polycystic kidney disease); Nephrolithiasis; Hypothyroidism, unspecified type 10/26/2024 Telephone [facility] - Nephrology [address] [place] [address] [phone] Zaheer Fernandez MD LABS ONLY 10/26/2024 Telephone [facility] GI [address] [facility], [place] [phone] Zaheer Fernandez MD LABS ONLY 10/25/2024 Travel 10/14/2024 Orders Only [facility] - Nephrology [address] [place] [phone] Kay Stapleton RN Encounter for monitoring tacrolimus therapy; Recurrent UTI; Long-term use of immunosuppressant medication; Kidney replaced by transplant (HCC); Anemia of chronic renal failure, unspecified CKD stage; Vitamin D deficiency; Chronic kidney disease-mineral and bone disorder; Screening for viral disease from Last 3 Months Immunizations Immunization Administration Dates Next Due COVID PFIZER 12+YR 30MCG/0.3mL 01/05/2023 Covid Moderna primary monova lent 12+ yr 0.5mL 06/11/2021 Covid Pfizer primary monoval ent 12+ yr 0.3mL Purple cap 12/17/2023,12/04/2020,06/18/2020,2020 INFLUENZA VACCINE 12/31/2023,,01/19/2020,2017,02/11/2017 PNEUMOCOCCAL PPSV23 09/14/2018 Pneumococcal Pcv13 Conj 05/19/2018 TDAP (7yrs+) 11/01/2024 Family History Medical History Relation Name Comments Other Brother 1 PLD Renal Disease Brother 1 PKD, kidney tx p Other Brother 2 heart valve rep laced Renal Disease Daughter PKD CAD (Coronary Artery Disease) Father AL Father Cancer - Colon Maternal Uncle Aneurysm Mother Mother of brain aneurysm CVA Mother Lymphoma Paternal Aunt Kidney Disease Sister 1 polycystic ki dney disease Other Sister 1 PLD with resect ion Renal Disease Sister 1 kidney txp Other Sister 2 MVC None Known Son Relation Name Status Comments Brother 1 Alive Brother 2 Alive Brother 3 Alive Brother 4 Alive Daughter Alive Father Maternal Uncle Alive Mother Paternal Aunt Alive Sister 1 Alive Sister 2 Son Alive Social History Tobacco Use Types Packs/Day Years Used Date Smoking Tobacco: Never Smokeless Tobacco: Never Tobacco Cessation:Counseling Given: Not Answered Alcohol Use Standard Drinks/Week Comments Not Currently [...] and heating? Not hard at all 04/04/2024 [facility] [place] of Occupat ional Health - Occupational Stress [...] a care home (including now)? No 03/06/2023 Housing Stability Vital Sign Answer Stas e Recorded In the last 12 months, was t here a time when you were not able to pay the mortgage or rent on time? No 04/04/2024 In the past 12 months, how m any times have you moved where you were living? 1 04/04/2024 At any time in the past 12 m [facility], were you homeless or living in a care home (including now)? No 04/04/2024 Comments No Sex and Gender Information Value Date Recorded Sex Assigned at Not on file Legal Sex Female 7:53 PM CDT Gender Identity Not on file Sexual Orientation Not on file Last Filed Vital Signs Vital Sign Reading Time Taken Comments Blood Pressure 126/69 11/03/2024 3:40 PM CDT Pulse 65 11/03/2024 3:40 PM CDT Temperature 36.8 C (98.2 F) 11/03/2024 3:40 PM CDT Respiratory Rate 17 04/07/2024 11:38 AM DIRECTOR TARGETED MARKETING Oxygen Saturation 98% 11/03/2024 3:40 PM CDT Inhaled Oxygen Concentration 45% 03/04/2023 4 :23 PM DIRECTOR TARGETED MARKETING Weight 67.1 kg (148 lb) 11/03/2024 3:40 PM CDT Height 162.6 cm (5' 4) 07/29/2024 3:11 PM CDT Body Mass Index 25.4 07/29/2024 3:11 PM CDT Plan of Treatment Upcoming Encounters Date Type Department Care Team (Late st Contact Info) Description 01/27/2025 2:00 PM CDT Office Visit [facility] - Nephrology [address] [place] [phone] 01/27/2025 2:30 PM CDT Office Visit [facility] - GI [address] [place] [phone] Michoacano Agosto MD [address] [place] [address] [place] [address] Health Maintenance Due Date Last Done Comments COLOGUARD (AGES 45-75) - COLON CA SCREENING 1965 CT COLONOGRAPHY - COLON CA SCREENING 1965 FIT - COLON CA SCREENING 1965 FLEX SIG - COLON CA SCREENING 1965 HEPATITIS B VACCINE (1 of 3 - 19+ 3-dose series) 1984 ZOSTER VACCINE (1 of 2) 1984 MAMMOGRAM 09/03/2023 09/02/2021 (Done Outside Per Report), 07/12/2018 (Done Outside Per Patient) PNEUMOCOCCAL VACCINE 50+ (3 of 3 - PCV20 or PCV21) 09/15/2023 09/14/2018, 05/19/2018 DEPRESSION SCREENING 04/20/2024 PAP SMEAR 05/28/2024 05/28/2021 (Done Outside Per Patient), 06/30/2018 (Done Outside Per Patient) COVID-19 VACCINE ( season) 2024 12/17/2023, 01/05/2023, 08/21/2022, Additional history exists SCREENING FOR DIABETES 12/21/2027 , 11/23/2024, 10/26/2024, Additional history exists LIPID TESTING 09/19/2029 09/19/2024, 05/21, 03/14/2024, Additional history exists COLON MONITORING 08/29/2031 08/28/2021, 08/28/2021 COLONOSCOPY - COLON CA SCREENING 08/29/2031 08/28/2021, 08/28/2021 Colorectal Cancer Screening 08/29/2031 DTAP/TDAP/TD VACCINES (2 - Td or Tdap) 11/01/2034 11/01/2024 HEPATITIS C SCREENING Completed 03/04/2023 , 02/23/2023, 12/15/2022, Additional history exists HIV SCREENING Completed 03/04/2023, 09/2022, 12/15/2022, Additional history exists INFLUENZA VACCINE Completed 01/08/2025, , 01/19/2023, Additional history exists HIB VACCINE Aged Out No longer eligi ble based on patient's age to complete this topic HPV VACCINE Aged Out No longer eligi ble based on patient's age to complete this topic MENINGOCOCCAL (Group B) VACCINE SHARED DECISION-MAKING Aged Out No longer eligible based on patient's age to complete this topic MENINGOCOCCAL GROUPS A/C/Y/W VACCINE Aged Out No longer eligible based on patient's age to complete this topic Goals Goal Patient Goal Type Associated Problems Recent Progress Patient-Stated? Author Medication Management General On track( 10:39 AM DIRECTOR TARGETED MARKETING) No Afshan Perez, RN Note: Expected end date: ongoing Interventions: Take all medications as prescribed Let your doctor know right away about any changes in your medications Make sure to request a refill of your medication at least one week prior to your last dose Safety General On track( 10:39 AM DIRECTOR TARGETED MARKETING) No Afshan Perez, RN Note: Expected end date: ongoing Interventions: Your nurse will assess your risk for falls/injury each visit Be aware of medications that could predispose you to falling Wear non-skid/rubber sole footwear Use some light at night in your room Procedures Procedure Name Priority Date/Time Associated Diagnosis Comments LITHOLINK 24HR URINE PANEL QUANT (LC DIRECT SHIP) Routine 12/21/2024 7:00 AM CDT Nephrolithiasis CREATININE URINE RANDOM Routine 12/20/2024 8:33 AM CDT Nephrolithiasis S/P liver transplant in 11/29/2015 ([facility]) Long-term use of immunosuppressant medication Vitamin D deficiency Anemia in stage 2 chronic kidney disease PROTEIN URINE RANDOM QUANTITATIVE Routine 12/20/2024 8:33 AM CDT Nephrolithiasis S/P liver transplant in 11/29/2015 ([facility]) Long-term use of immunosuppressant medication Vitamin D deficiency Anemia in stage 2 chronic kidney disease URINALYSIS W/MICROSCOPIC NO CULTURE Routine 12/20/2024 8:33 AM CDT Nephrolithiasis S/P liver transplant in 11/29/2015 ([facility]) Long-term use of immunosuppressant medication Vitamin D deficiency Anemia in stage 2 chronic kidney disease PHOSPHORUS BLOOD Routine 12/20/2024 8:33 AM CDT Nephrolithiasis S/P liver transplant in 11/29/2015 ([facility]) Long-term use of immunosuppressant medication Vitamin D deficiency Anemia in stage 2 chronic kidney disease MAGNESIUM BLOOD Routine 12/20/2024 8:33 AM CDT Nephrolithiasis S/P liver transplant in 11/29/2015 ([facility]) Long-term use of immunosuppressant medication Vitamin D deficiency Anemia in stage 2 chronic kidney disease COMPREHENSIVE METABOLIC PANEL Routine 12/20/2024 8:33 AM CDT Nephrolithiasis S/P liver transplant in 11/29/2015 ([facility]) Long-term use of immunosuppressant medication Vitamin D deficiency Anemia in stage 2 chronic kidney disease CBC W AUTO DIFFERENTIAL Routine 12/20/2024 8:33 AM CDT Nephrolithiasis S/P liver transplant in 11/29/2015 ([facility]) Long-term use of immunosuppressant medication Vitamin D deficiency Anemia in stage 2 chronic kidney disease TACROLIMUS LEVEL Routine 12/20/2024 8:33 AM CDT Nephrolithiasis S/P liver transplant in 11/29/2015 ([facility]) Long-term use of immunosuppressant medication Vitamin D deficiency Anemia in stage 2 chronic kidney disease CREATININE URINE RANDOM Routine 11/23/2024 8:56 AM CDT Nephrolithiasis S/P liver transplant in 11/29/2015 ([facility]) Long-term use of immunosuppressant medication Vitamin D deficiency Anemia in stage 2 chronic kidney disease PROTEIN URINE RANDOM QUANTITATIVE Routine 11/23/2024 8:56 AM CDT Nephrolithiasis S/P liver transplant in 11/29/2015 ([facility]) Long-term use of immunosuppressant medication Vitamin D deficiency Anemia in stage 2 chronic kidney disease URINALYSIS W/MICROSCOPIC NO CULTURE Routine 11/23/2024 8:56 AM CDT Nephrolithiasis S/P liver transplant in 11/29/2015 ([facility]) Long-term use of immunosuppressant medication Vitamin D deficiency Anemia in stage 2 chronic kidney disease PHOSPHORUS BLOOD Routine 11/23/2024 8:56 AM CDT Nephrolithiasis S/P liver transplant in 11/29/2015 ([facility]) Long-term use of immunosuppressant medication Vitamin D deficiency Anemia in stage 2 chronic kidney disease MAGNESIUM BLOOD Routine 11/23/2024 8:56 AM CDT Nephrolithiasis S/P liver transplant in 11/29/2015 ([facility]) Long-term use of immunosuppressant medication Vitamin D deficiency Anemia in stage 2 chronic kidney disease COMPREHENSIVE METABOLIC PANEL Routine 11/23/2024 8:56 AM CDT Nephrolithiasis S/P liver transplant in 11/29/2015 ([facility]) Long-term use of immunosuppressant medication Vitamin D deficiency Anemia in stage 2 chronic kidney disease CBC W AUTO DIFFERENTIAL Routine 11/23/2024 8:56 AM CDT Nephrolithiasis S/P liver transplant in 11/29/2015 ([facility]) Long-term use of immunosuppressant medication Vitamin D deficiency Anemia in stage 2 chronic kidney disease TACROLIMUS LEVEL Routine 11/23/2024 8:56 AM CDT Nephrolithiasis S/P liver transplant in 11/29/2015 (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 (HCC) CKD stage 3a, GFR 45-59 ml/min ([facility]) Polycystic kidney disease Recurrent nephrolithiasis Other hyperlipidemia Hyperparathyroidism (HCC) S/P liver transplant (HCC) Kidney transplanted (HCC) Polycystic kidney, autosomal dominant PKD (polycystic kidney disease) Nephrolithiasis Hypothyroidism, unspecified type BK VIRUS PCR QUANTITATIVE Routine 10/26/2024 9:28 AM CDT Encounter for monitoring tacrolimus therapy Kidney replaced by transplant ([facility]) Vitamin D deficiency Anemia of chronic renal failure, unspecified CKD stage 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 (HCC) CKD stage 3a, GFR 45-59 ml/min (HCC) Polycystic kidney disease Recurrent nephrolithiasis Other hyperlipidemia Hyperparathyroidism (HCC) S/P liver transplant (HCC) Kidney transplanted (HCC) Polycystic kidney, autosomal dominant PKD (polycystic kidney disease) Nephrolithiasis Hypothyroidism, unspecified type MAGNESIUM BLOOD Routine 10/26/2024 9:28 AM CDT Encounter for monitoring tacrolimus therapy Kidney replaced by transplant ([facility]) Vitamin D deficiency Anemia of chronic renal failure, unspecified CKD stage 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 ([facility]) CKD stage 3a, GFR 45-59 ml/min ([facility]) Polycystic kidney disease Recurrent nephrolithiasis Other hyperlipidemia Hyperparathyroidism (HCC) S/P liver transplant ([facility]) Kidney transplanted ([facility]) Polycystic kidney, autosomal dominant PKD (polycystic kidney disease) Nephrolithiasis Hypothyroidism, unspecified type PHOSPHORUS BLOOD Routine 10/26/2024 9:28 AM CDT Encounter for monitoring tacrolimus therapy Kidney replaced by transplant ([facility]) Vitamin D deficiency Anemia of chronic renal failure, unspecified CKD stage 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 ([facility]) CKD stage 3a, GFR 45-59 ml/min ([facility]) Polycystic kidney disease Recurrent nephrolithiasis Other hyperlipidemia Hyperparathyroidism ([facility]) S/P liver transplant ([facility]) Kidney transplanted ([facility]) Polycystic kidney, autosomal dominant PKD (polycystic kidney disease) Nephrolithiasis Hypothyroidism, unspecified type PROTEIN URINE RANDOM QUANTITATIVE Routine 10/26/2024 9:28 AM CDT Encounter for monitoring tacrolimus therapy Kidney replaced by transplant ([facility]) Vitamin D deficiency Anemia of chronic renal failure, unspecified CKD stage 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 ([facility]) CKD stage 3a, GFR 45-59 ml/min ([facility]) Polycystic kidney disease Recurrent nephrolithiasis Other hyperlipidemia Hyperparathyroidism (HCC) S/P liver transplant ([facility]) Kidney transplanted ([facility]) Polycystic kidney, autosomal dominant PKD (polycystic kidney disease) Nephrolithiasis Hypothyroidism, unspecified type TACROLIMUS LEVEL Routine 10/26/2024 9:28 AM CDT Encounter for monitoring tacrolimus therapy Kidney replaced by transplant ([facility]) Vitamin D deficiency Anemia of chronic renal failure, unspecified CKD stage 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 ([facility]) CKD stage 3a, GFR 45-59 ml/min ([facility]) Polycystic kidney disease Recurrent nephrolithiasis Other hyperlipidemia Hyperparathyroidism (HCC) S/P liver transplant (HCC) Kidney transplanted (HCC) Polycystic kidney, autosomal dominant PKD (polycystic kidney disease) Nephrolithiasis Hypothyroidism, unspecified type COMPREHENSIVE METABOLIC PANEL Routine 10/26/2024 9:28 AM CDT Encounter for monitoring tacrolimus therapy Kidney replaced by transplant (HCC) Vitamin D deficiency Anemia of chronic renal failure, unspecified CKD stage 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 (HCC) CKD stage 3a, GFR 45-59 ml/min (HCC) Polycystic kidney disease Recurrent nephrolithiasis Other hyperlipidemia Hyperparathyroidism (HCC) S/P liver transplant (HCC) Kidney transplanted (HCC) Polycystic kidney, autosomal dominant PKD (polycystic kidney disease) Nephrolithiasis Hypothyroidism, unspecified type CBC W AUTO DIFFERENTIAL Routine 10/26/2024 9:28 AM CDT Encounter for monitoring tacrolimus therapy Kidney replaced by transplant (HCC) Vitamin D deficiency Anemia of chronic renal failure, unspecified CKD stage 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 (HCC) CKD stage 3a, GFR 45-59 ml/min (HCC) Polycystic kidney disease Recurrent nephrolithiasis Other hyperlipidemia Hyperparathyroidism (HCC) S/P liver transplant (HCC) Kidney transplanted (HCC) Polycystic kidney, autosomal dominant PKD (polycystic kidney disease) Nephrolithiasis Hypothyroidism, unspecified type LIPID PROFILE Routine 09/19/2024 8:25 AM CDT Vitamin D deficiency Chronic kidney disease-mineral and bone disorder HEPATITIS C RNA QUANTITATIVE STAT 03/04/2023 8:34 AM DIRECTOR TARGETED MARKETING Pre-transplant evaluation for kidney transplant HIV-1 HIV-2 ANTIBODY + HIV P24 AG PANEL STAT 03/04/2023 8:34 AM DIRECTOR TARGETED MARKETING Pre-transplant evaluation for kidney transplant ENDOSCOPY, COLON, SCREENING Routine 08/28/2021 10:11 AM CDT from Last 3 Months or Most Recently Relevant to Health Maintenance Results * (ABNORMAL) LITHOLINK 24HR URINE PANEL QUANT (LC DIRECT SHIP) (12/21/2024 7:00 AM CDT) Cystine Urine Qualitative CANCELED [facility] INSURANCE BILL Comment: Test not performed. Previous test results on file. Result canceled by the ancillary. Volume Urine (Preservative) 2,520 500 - 4,000 mL/24 hr [facility] INSURANCE BILL Calcium Oxalate Saturation 4.24(L) 6.00 - 10.00 [facility] INSURANCE BILL Calcium Urine 102 <200 mg/24 hr [facility] INSURANCE BILL Oxalate Urine 48(H) 20 - 40 mg/24 hr [facility] INSURANCE BILL Citrate Urine 246(L) >550 mg/24 hr [facility] INSURANCE BILL Calcium Phosphate Saturation 0.07(L) 0.50 - 2.00 [facility] INSURANCE BILL pH Urine 24 Hour 5.490(L) 5.800 - 6.200 [facility] INSURANCE BILL Uric Acid Saturation 0.76 <1.00 [facility] INSURANCE BILL Uric Acid Urine 404 <750 mg/24 hr [facility] INSURANCE BILL Sodium Urine 122 50 - 150 mmol/24 hr [facility] INSURANCE BILL Potassium 24 Hour Urine 58 20 - 100 mmol/24 hr [facility] INSURANCE BILL Magnesium Urine 94 30 - 120 mg/24 hr [facility] INSURANCE BILL Phosphorus Urine 517(L) 600 - 1,200 mg/24 hr [facility] INSURANCE BILL Ammonium Urine 30 15 - 60 mmol/24 hr [facility] INSURANCE BILL Chloride mmol/24 Hour Urine 136 70 - 250 mmol/24 hr [facility] INSURANCE BILL Sulfate Urine 33 20 - 80 meq/24 hr [facility] INSURANCE BILL Urea Nitrogen 24 Hour Urine 10.80 6.00 - 14.00 g/24 hr [facility] INSURANCE BILL Protein Catabolic Rate 1.2 0.8 - 1.4 g/kg/24 hr [facility] INSURANCE BILL Creatinine Urine 1,135 Not Applic. mg/24 hr [facility] INSURANCE BILL Creatinine/Kg Body Weight 16.8 8.7 - 20.3 mg/24 hr/kg [facility] INSURANCE BILL Calcium/Kg Body Weight 1.5 <4.0 mg/24 hr/kg [facility] INSURANCE BILL Calcium/Creatini ne Ratio Urine 90 51 - 262 mg/g creat [facility] INSURANCE BILL Comment Litholink Note [facility] INSURANCE BILL Urine TIMED URINE SPECIMEN / Unknown 12/21/2024 7:00 AM CDT 12/22/2024 Narrative [facility] INSURANCE BILL - 12/27/2024 6:09 AM CDT Performed at: - [address] [id number] Knowledge Management Consultant: Hoang Gallagher PhD, Phone: [phone] Chiquita Oglesby PRODUCT MARKETING ANALYST-PROJECT MANAGEMENT PROFESSIONAL LAB - URINE CHEMISTRY O RDERABLES Edited Result - Final Performing Organization Address City/[facility]/ZIP Co de Phone Number [facility] INSURANCE BILL [address] [place] [address] * URINALYSIS COMPLETE W MICROSCOPIC (12/20/2024 8:33 AM CDT) Only the most recent of2 resultswithin the time period is included. Color UA YELLOW YELLOW [facility] Appearance CLEAR CLEAR [facility] Specific Perrin UA 1.009 1.001 - 1.035 [facility] pH UA 5.5 5.0 - 8.0 [facility] Glucose UA NEGATIVE NEGATIVE [facility] Bilirubin UA NEGATIVE NEGATIVE [facility] Ketone UA NEGATIVE NEGATIVE [facility] Blood UA NEGATIVE NEGATIVE [facility] Protein UA NEGATIVE NEGATIVE [facility] Nitrite UA NEGATIVE NEGATIVE [facility] Leukocyte UA NEGATIVE NEGATIVE [facility] WBC UA NONE SEEN < OR = 5 /HPF [facility] RBC UA NONE SEEN < OR = 2 /HPF [facility] Epithelial Cell UA NONE SEEN < OR = 5 /HPF [facility] Transitional Epithelial Cells [facility] Renal Epithelial Cells [facility] Bacteria UA NONE SEEN NONE SEEN /HPF [facility] Calcium Oxalate Crystals [facility] Triple Phosphate Crystals [facility] Uric Acid Crystals [facility] Amorphous UA [facility] Crystals UA [facility] Hyaline Casts NONE SEEN NONE SEEN /LPF [facility] Granular Casts [facility] Casts UA [facility] Yeast [facility] Comments [facility] Note See Below [facility] Comment: This urine was analyzed for the presence of WBC, RBC, bacteria, casts, and other formed elements. Only those elements seen were reported. Test Performed at: [facility] [address] LUZ ELENA BERGER MD Urine URINE SPECIMEN OBTAINED BY CLEAN CATCH PROCEDURE / Unknown 12/20/2024 8:33 AM CDT 12/20/2024 8:35 AM CDT Chiquita Oglesby PRODUCT MARKETING ANALYST-PROJECT MANAGEMENT PROFESSIONAL LAB - URINALYSIS ORDERA BLES Final Result Performing Organization Address City/[facility]/ZIP Co de Phone Number [facility] [address] [place] [address] * TACROLIMUS LEVEL (12/20/2024 8:33 AM CDT) Only the most recent of3 resultswithin the time period is included. [facility] Tacrolimus 5.2 mcg/L [facility] Comment: No definitive therapeutic or toxic ranges have been established. Optimal blood drug levels are influenced by type of transplant, patient response, time post- transplant, co-administration of other drugs, and drug formulation. The following trough range is a suggested guideline: 5.0-20.0 mcg/L. Test Performed at: [facility] [address] [place] [address] LUZ ELENA BERGER MD Blood BLOOD SPECIMEN / Unknown 12/20/2024 8:33 AM CDT 12/20/2024 8:35 AM CDT Chiquita Oglesby PRODUCT MARKETING ANALYST-PROJECT MANAGEMENT PROFESSIONAL LAB - THERAPEUTIC DRUG MONITORING ORDERABLES Final Result Performing Organization Address [facility] de Phone Number [facility] [address] [place] [address] * (ABNORMAL) CBC W AUTO DIFFERENTIAL (12/20/2024 8:33 AM CDT) Only the most recent of3 resultswithin the time period is included. [facility] White Blood Cell Count 6.1 3.8 - 10.8 Thousand/ uL [facility] RBC 3.94 3.80 - 5.10 Million/u L [facility] Hemoglobin 11.6(L) 11.7 - 15.5 g/dL [facility] Hematocrit 37.1 35.0 - 45.0 % [facility] MCV 94.2 80.0 - 100.0 fL [facility] MCH 29.4 27.0 - 33.0 pg [facility] MCHC 31.3(L) 32.0 - 36.0 g/dL [facility] Comment: For adults, a slight decrease in the calculated MCHC value (in the range of 30 to 32 g/dL) is most likely not clinically significant; however, it should be interpreted with caution in correlation with other red cell parameters and the patient's clinical condition. RDW 12.6 11.0 - 15.0 % [facility] Platelet Count 201 140 - 400 Thousand/ uL [facility] MPV 9.4 7.5 - 12.5 fL [facility] Neutrophil Absolute 4782 1500 - 7800 cells/uL [facility] Lymphocytes Absolute 726(L) 850 - 3900 cells/uL [facility] Absolute Monocytes 451 200 - 950 cells/uL [facility] Eosinophils Absolute 122 15 - 500 cells/uL [facility] Basophils Absolute 18 0 - 200 cells/uL [facility] Granulocytes % 78.4 % [facility] Lymphocytes % 11.9 % [facility] Monocytes % 7.4 % [facility] Eosinophils % 2.0 % [facility] Basophils % 0.3 % [facility] Comment: Test Performed at: [facility] [address] LUZ ELENA BERGER MD Blood BLOOD SPECIMEN / Unknown 12/20/2024 8:33 AM CDT 12/20/2024 8:35 AM CDT Chiquita Oglesby APRN-PROJECT MANAGEMENT PROFESSIONAL LAB - HEMATOLOGY ORDERA BLES Final Result Performing Organization Address [facility] de Phone Number [address] [address] * (ABNORMAL) PROTEIN URINE RANDOM QUANTITATIVE (12/20/2024 8:33 AM CDT) Only the most recent of3 resultswithin the time period is included. [facility] Protein Random Urine <4(L) 5 - 24 mg/dL [facility] Comment: Verified by repeat analysis. Test Performed at: [facility] [address] [address] LUZ ELENA BERGER MD Urine URINE SPECIMEN OBTAINED BY CLEAN CATCH PROCEDURE / Unknown 12/20/2024 8:33 AM CDT 12/20/2024 8:35 AM CDT Chiquita Oglesby APRNPROJECT MANAGEMENT PROFESSIONAL LAB - URINE CHEMISTRY O RDERABLES Final Result Performing Organization Address [facility] Co de Phone Number [address] [address] * (ABNORMAL) COMPREHENSIVE METABOLIC PANEL (12/20/2024 8:33 AM CDT) Only the most recent of3 resultswithin the time period is included. [facility] Glucose 90 65 - 99 mg/dL [facility] Comment: Fasting reference interval BUN 32(H) 7 - 25 mg/dL [facility] Creatinine 1.32(H) 0.50 - 1.03 mg/dL [facility] eGFR by Cystatin C 47(L) > OR = 60 mL/min/1. 73m2 [facility] BUN/Creatinine Ratio 24(H) 6 - 22 (calc) [facility] Sodium 136 135 - 146 mmol/L [facility] Potassium 4.6 3.5 - 5.3 mmol/L [facility] Chloride 100 98 - 110 mmol/L [facility] CO2 28 20 - 32 mmol/L [facility] Calcium 9.9 8.6 - 10.4 mg/dL [facility] Protein Total 6.8 6.1 - 8.1 g/dL [facility] Albumin 4.5 3.6 - 5.1 g/dL [facility] Globulin Total 2.3 1.9 - 3.7 g/dL (calc) [facility] Albumin/Globulin Ratio 2.0 1.0 - 2.5 (calc) [facility] Bilirubin Total 0.6 0.2 - 1.2 mg/dL [facility] Alkaline Phosphatase 50 37 - 153 U/L [facility] AST 14 10 - 35 U/L [facility] ALT 17 6 - 29 U/L [facility] Comment: Test Performed at: [email or web address] [address] LUZ ELENA BERGER MD Blood BLOOD SPECIMEN / Unknown 12/20/2024 8:33 AM CDT 12/20/2024 8:35 AM CDT Chiquita Oglesby PRODUCT MARKETING ANALYST-PROJECT MANAGEMENT PROFESSIONAL LAB - CHEMISTRY ORDERAB LES Final Result [address] [address] * PHOSPHORUS BLOOD (12/20/2024 8:33 AM CDT) Only the most recent of3 resultswithin the time period is included. Phosphorus 4.3 2.5 - 4.5 mg/dL [facility] Comment: Test Performed at: [facility] [address] LUZ ELENA BERGER MD Blood BLOOD SPECIMEN / Unknown 12/20/2024 8:33 AM CDT 12/20/2024 8:35 AM CDT Chiquita Oglesby APRN-PROJECT MANAGEMENT PROFESSIONAL LAB - CHEMISTRY ORDERAB LES Final Result Performing Organization Address [facility] Co de Phone Number [address] [address] * MAGNESIUM BLOOD (12/20/2024 8:33 AM CDT) Only the most recent of3 resultswithin the time period is included. Pathologist [facility] Magnesium 1.8 1.5 - 2.5 mg/dL [facility] Comment: Test Performed at: [facility] [address] LUZ ELENA BERGER MD Blood BLOOD SPECIMEN / Unknown 12/20/2024 8:33 AM CDT 12/20/2024 8:35 AM CDT Chiquita Oglesby APRN-PROJECT MANAGEMENT PROFESSIONAL LAB - CHEMISTRY ORDERAB LES Final Result Performing Organization Address [facility] de Phone Number [address] [address] * CREATININE URINE RANDOM (12/20/2024 8:33 AM CDT) Only the most recent of2 resultswithin the time period is included. [facility] Creatinine Urine 33 20 - 275 mg/dL [facility] Comment: Test Performed at: [facility] [address] [address] LUZ ELENA BERGER MD Urine URINE SPECIMEN OBTAINED BY CLEAN CATCH PROCEDURE / Unknown 12/20/2024 8:33 AM CDT 12/20/2024 8:35 AM CDT Chiquita Oglesby APRN-PROJECT MANAGEMENT PROFESSIONAL LAB - URINE CHEMISTRY O RDERABLES Final Result Performing Organization Address City/[facility] Co de Phone Number [address] [address] * CYTOMEGALOVIRUS QUANT BLOOD (10/26/2024 9:28 AM CDT) [facility] Cytomegalovirus DNA Quantitative PCR Not Detected Not Detected IU/mL [facility] Cytomegalovirus DNA Quantitative PCR Not Detected Not Detected Log IU/mL [facility] Comment: (Note) For additional information, please refer to http://education.Olacabs/faq/CMVandEBVPCR (This link is being provided for informational/educational purposes only.) [facility] [employer] [facility] [address],[address] [facility] [address] Sharon Arango MD, PhD Test Performed at: [facility] [address] [place] [address] [place] [phone] SHARON ARANGO MD,PHD Blood BLOOD SPECIMEN / Unknown 10/26/2024 9:28 AM CDT 10/26/2024 9:29 AM CDT Zaheer Fernandez MD LAB - CHEMISTRY ORDERABLES F inal Result Performing Organization Address [facility] Co de Phone Number [facility] [address] [place] [address] * BK VIRUS PCR QUANTITATIVE (10/26/2024 9:28 AM CDT) Pathologist [facility] BK Virus DNA Quantitative PCR Not Detected Not Detected IU/mL [facility] BK Virus DNA PCR Not Detected Not Detected Log IU/mL [facility] Comment: [facility] [address] [place] [address],[address] [place] [address] Sharon Arango MD, PhD Test Performed at: [facility] [address] [place] [address] [place] [phone] SHARON AARNGO MD,PHD Blood BLOOD SPECIMEN / Unknown 10/26/2024 9:28 AM CDT 10/26/2024 9:29 AM CDT Zaheer Fernandez MD LAB - CHEMISTRY ORDERABLES F inal Result Performing Organization Address City/[facility]/ZIP Co de Phone Number [facility] [address] [place] [address] * LIPID PROFILE (09/19/2024 8:25 AM CDT) Pathologist [facility] Cholesterol 152 <200 mg/dL [facility] HDL Cholesterol 64 > OR = 50 mg/dL [facility] Triglycerides 58 <150 mg/dL [facility] LDL Calculated 75 mg/dL (calc) [facility] Comment: Reference range: <100 Desirable range <100 mg/dL for primary prevention; <70 mg/dL for patients with CHD or diabetic patients with > or = 2 CHD risk factors. LDL-C is now calculated using the Amparo calculation, which is a validated novel method providing better accuracy than the Friedewald equation in the estimation of LDL-C. Vini PUGA et al. KAZ. 2013;310(19): 6087-3379 (http://education.ShareHows.Nanjing Zhangmen/faq/OQC422) CHOL/HDLC RATIO 2.4 <5.0 (calc) [facility] Non HDL Cholesterol 88 <130 mg/dL (calc) [facility] Comment: For patients with diabetes plus 1 major ASCVD risk factor, treating to a non-HDL-C goal of <100 mg/dL (LDL-C of <70 mg/dL) is considered a therapeutic option. Test Performed at: [facility] [address] LUZ ELENA BERGER MD Blood BLOOD SPECIMEN / Unknown 09/19/2024 8:25 AM CDT 09/19/2024 8:28 AM CDT Zaheer Fernandez MD LAB - CHEMISTRY ORDERABLES F inal Result Performing Organization Address City/[facility]/ZIP Co de Phone Number [address] [address] * HIV-1 HIV-2 ANTIBODY + HIV P24 AG PANEL (03/04/2023 8:34 AM DIRECTOR TARGETED MARKETING) HIV Antigen/Antibod y 1 & 2 Non-reacti ve Non-react adriana 03/04/2023 9:39 AM DIRECTOR TARGETED MARKETING [facility] Comment:No Laboratory eviden ce of HIV infection. Blood BLOOD SPECIMEN / Unknown Venipuncture / Unknown 03/04/2023 8:34 AM DIRECTOR TARGETED MARKETING 03/04/2023 8:45 AM DIRECTOR TARGETED MARKETING George Gary PA-C LAB - CHEMISTRY ORDERABLES Final Result Performing Organization Address City/[facility]/ZIP Co de Phone Number [facility] [address] [place] [address], [facility] [phone] * HEPATITIS C RNA QUANTITATIVE (03/04/2023 8:34 AM DIRECTOR TARGETED MARKETING) Pathologist [facility] Hepatitis C RNA PCR, Interp Not detected Not detected 03/05/2023 9:57 AM [facility] Blood BLOOD SPECIMEN / Unknown Venipuncture / Unknown 03/04/2023 8:34 AM DIRECTOR TARGETED MARKETING 03/04/2023 8:45 AM DIRECTOR TARGETED MARKETING Narrative [facility] - 03/05/2023 9:57 AM DIRECTOR TARGETED MARKETING The Hepatitis C viral (HCV) RNA analysis utilized a serum sample, real-time reverse pile driving supervisor PCR, and is reported as Not Detected, Detected (<12 IU/mL), Quantity (IU/mL) or >30,000,000 IU/mL. The limit of quantitation of the assay is 12 IU/mL (100% of samples with this HCV RNA level were detected). The linear range is from 12 IU/mL to 30,000,000 IU/mL. Values less than 12 IU/mL are reported as Detected (<12 IU/mL). Values greater than 30,000,000 IU/mL are reported as >30,000,000 IU/mL. The detection/quantitation of HCV RNA in serum is based on the isolation of HCV RNA with reverse pile driving supervisor of genomic HCV RNA followed by real-time PCR in the presence of an unrelated RNA internal control. The internal control ensures that RNA is isolated, and that no general significant inhibitors of the RT-PCR process are present. The analysis was performed using a U.S. FDA approved test methodology. George Gary PA-C LAB - CHEMISTRY ORDERABLES Final Result [facility] [address] [place] [address], [facility] [phone] * ENDOSCOPY, COLON, SCREENING (08/28/2021 10:11 AM CDT) Pathologist [facility] Report Endoscopy POC Endoscopy Department Report _ Patient Name: Anuj James Procedure Date: 08/28/2021 10:11 AM Date of : 1965 Classification: Outpatient Gender: Female Ethnicity: Not or Race: White _ Providers: Daniela Cazares ([facility]), Referring MD: Alana Curtis (Referring MD), Michoacano Agosto MD (Referring MD) Procedure: Colonoscopy Indications: Screening for colorectal malignant neoplasm. Last colonoscopy was performed 2016. Medications: Monitored Anesthesia Care Description of Procedure: Pre-Anesthesia Assessment: - Prior to the procedure, a History and Physical was performed, and patient medications and allergies were reviewed. The patient's tolerance of previous anesthesia was also reviewed. The risks and benefits of the procedure and the sedation options and risks were discussed with the patient. All questions were answered, and informed consent was obtained. Prior Anticoagulants: The patient has taken no previous anticoagulant or antiplatelet agents. ASA Grade Assessment: III - A patient with severe systemic disease. After reviewing the risks and benefits, the patient was deemed in satisfactory condition to undergo the procedure. After I obtained informed consent, the scope was passed under direct vision. Throughout the procedure, the patient's blood pressure, pulse, and oxygen saturations were monitored continuously. The PCF-[id number] was introduced through the anus and advanced to the cecum, identified by appendiceal orifice and ileocecal valve. The patient tolerated the procedure well. The quality of the bowel preparation was excellent. The ileocecal valve, appendiceal orifice, and rectum were photographed. Findings: The perianal and digital rectal examinations were normal. A few small-mouthed diverticula were found in the sigmoid colon. The exam was otherwise without abnormality on direct and retroflexion views. Estimated Blood Loss: Estimated blood loss: none. Complications: No immediate complications. Impression: - Diverticulosis in the sigmoid colon. - The examination was otherwise normal on direct and retroflexion views. - No specimens collected. Recommendation: - Resume previous diet. - Continue present medications. - Repeat colonoscopy in 5 years for screening purposes. - Return to referring physician as previously scheduled. Attending Participation: I personally performed the entire procedure. Procedure Code(s): --- Professional --- G0121, Colorectal cancer screening; colonoscopy on individual not meeting criteria for high risk Diagnosis Code(s): --- Professional --- Z12.11, Encounter for screening for malignant neoplasm of colon K57.30, Diverticulosis of large intestine without perforation or abscess without bleeding CPT copyright 2019 [employer]. All rights reserved. The codes documented in this report are preliminary and upon automotive parts counter associate review may be revised to meet current compliance requirements. Daniela Kangbeebe healthcareMD mor 08/28/2021 11:12:39 AM Note Initiated On: 08/28/2021 10:11 AM Number of Addenda: [id number] [place] [address] PROVATION 08/28/2021 10:1 1 AM CDT Daniela Cazares MD GI PROCEDURE ORDERABLES E dited Result - Final [facility] PROVATION from Last 3 Months or Most Recently Relevant to Health Maintenance Insurance [place] [address] [place] [address] Advance Directives * Full Code (Latest Code Status on File) Date Activated Date Inactivated Comments 04/04/2024 2:44 AM 04/07/2024 5:20 PM * Full Code Date Activated Date Inactivated Comments 03/04/2023 4:51 PM 03/08/2023 6:27 PM * Full Code Date Activated Date Inactivated Comments 05/17/2019 1:11 AM 05/17/2019 11:54 AM * Full Code Date Activated Date Inactivated Comments 09/15/2015 12:32 AM 09/26/2015 5:34 AM Care Teams Industrial Gas Production Operator Relationship Specialty Start Date End Date Madeleine Garcia MD [address] [place] [address] PCP - General Family Medicine 11/21/22 Yaritza Mora, RN Medical Record Consultant 09/25/15 Afshan Perez, BEAR Registered Nurse Hepatology 09/01/17 Himanshu Steiner MD [address] [facility] [address] [place], [place] [phone] Obstetrics and Gynecology 04/26/18
== END 2025-01-11 14:14 | disposition home or self-care (01) ==
LOC: ANHFOHIMG 14:17
PROVIDERS: PCP Family Medicine; Visit Provider Obstetrics & Gynecology
DX: Z12.31 Encounter for screening mammogram for malignant neoplasm of breast (principal); R92.8 Other abnormal and inconclusive findings on diagnostic imaging of breast
CPT/HCPCS: 77063; 77067

== ENCOUNTER 2025-01-23 10:27 | Outpatient (CLI) | payer OTHER, SELFPAY ==
--- NOTE | ~2025-01-23 | DEXA_ITS ---
Bone Density Report Name: KATIA DOE Age: 59 Sex: Female Ethnicity: White Date of : 1965 Indication: postmenopausal; screening for osteoporosis; height loss; prior fracture; asthma or emphysema; end stage renal disease; Referring Provider: DEBBY LO Study: Bone densitometry was performed. Exam Date: January 23, 2025 Accession number: [id number] Bone Density: Region BMD T-score Z-score Classification AP Spine(L1-L4) 0.874 -1.6 -0.2 Osteopenia Femoral Neck (Left) 0.637 -1.9 -0.7 Osteopenia Total Hip (Left) 0.881 -0.5 0.4 Normal Femoral Neck (Right) 0.583 -2.4 -1.2 Osteopenia Total Hip (Right) 0.908 -0.3 0.6 Normal Total Hip Mean 0.895 -0.4 0.5 Normal World Health Organization criteria for BMD impression classify patients as: Normal (T-score at or above -1.0), Osteopenia (T-score between -1.0 and -2.5), or Osteoporosis (T-score at or below -2.5). 10-year Fracture Risk(1): Major Osteoporotic Fracture 18% Hip Fracture 3.1% Reported Risk Factors: [place] (), Neck BMD=0.583, BMI=25.0, previous fracture (1) FRAX(R) Version 3.08. Fracture probability calculated for an untreated patient. Fracture probability may be lower if the patient has received treatment. Clinical Information Provided by Patient: Has had a low trauma fracture Has used the following medications: Vitamin D Has the following medical conditions: Asthma or Emphysema, End stage renal disease Patient maximum height was 65.0 Menopause Age: 49 No regular weight bearing exercise Onset of menses at age 14 Number of children 1 Impression: The patient has low bone mass, based on the Right Femoral Neck T-score. The patient has an estimated ten-year risk of hip fracture of 3.1% and an estimated ten-year risk of major fracture of 18%, based on the WHO FRAX algorithm. The patient has risk factors, including: previous fracture. Discussion: BONE DENSITY IS LOW AT ONE OR MORE SKELETAL SITES. THE PATIENT'S BMD AND CLINICAL RISK FACTORS CONTRIBUTE TO THIS PATIENT'S INCREASED RISK OF FRACTURE. This patient's lowest T-score is low at one or more skeletal sites. It meets the World Health Organization's (WHO) criteria for ?low bone mass? (T-score between -1.0 and -2.5). The patient's 10-year risk of hip fracture as calculated by FRAX exceeds the threshold where pharmacological therapy is recommended by the National Osteoporosis Foundation (NOF). However, all treatment decisions require clinical judgment and consideration of individual patient factors, including patient preferences, comorbidities, previous drug use, risk factors not captured in the FRAX model (e.g., frailty, falls, vitamin D deficiency, increased bone turnover, interval significant decline in bone density) and possible under or overestimation of fracture risk by FRAX. The patient should follow a healthful lifestyle (good nutrition with adequate calcium and vitamin D, and appropriate weight-bearing exercise). Follow-Up: Consider a repeat BMD and Vertebral Fracture Assessment (VFA) exam in 2 years or sooner if medically necessary, to reassess this patient's status. Reported by: LYN on 01/23/2025 11:05:00 AM. Reviewed, dictated and finalized at location A.
--- OUTSIDE RECORDS SUMMARY | 2025-01-23 11:46 | XMS_ITS ---
Author Organization [facility] Address [address] [place] [address] Care Team Providers Care Pin Ticket Machine Operator Name Role Phone Yaritza Mora RN Unavailable [phone] Afshan Perez RN Unavailable Unavailable Himanshu Steiner MD Unavailable [phone] Madeleine Garcia MD Primary Care Provider [phone] Transplant Episode Liver Recipient [facility] ([place], [place]) - [facility] Organ Received: Liver Transplanted on 11/29/2015 Marked as Active Follow-up on 11/29/2015 Liver CoordinatorAfshan Perez RN Phone: N/A Fax: N/A Email: N/A Jena Organ Diagnosis Organ Primary Contributory Liver Other, [...] N/A N/A Junior Deutsch MD Referring Physician [phone] N/A Ruben Guadalupe MD Transplant Surgeon [phone] N/A Events Post-Transplant Pre-Transplant Admitted: 11/29/2015 Referred: 09/20/2015 Transplanted: 11/29/2015 Evaluation began: 6 Discharged: 12/11/2015 Center waitlisted: 6
--- OUTSIDE RECORDS SUMMARY | 2025-01-23 11:46 | XMS_ITS | Encounter Summary ---
Author Organization [facility] Address [address] [place] [address] Care Team Providers Care Geothermal Electrical Engineer Name Role Phone Yaritza Mora RN Unavailable [phone] Alana Christiansen MD Primary Care Provider [phone] Afshan Perez RN Unavailable Unavailable Himanshu Steiner MD Unavailable [phone] Madeleine Garcia MD Primary Care Provider [phone] Reason for Visit * Reason Comments Refill Request Encounter Details Date Type Department Care Team (Late st Contact Info) Description 01/27/2022 Refill [facility] - [address], [place] [phone] Alan Martini MD [address] [place] [address] [place] [address] Refill Request Social History Tobacco Use Types [...] No 09/15/2015 7:31 AM CDT Jinny Dewey, CARRIER ASSOCIATE-OPERATIONS ADMINISTRATOR * Is person blind or have serious difficulty seeing? Answer Date of Assessment Author No 09/15/2015 7:31 AM CDT Jinny Dewey, CARRIER ASSOCIATE-OPERATIONS ADMINISTRATOR * Does person have serious difficulty walking/climbing stairs? Answer Date of Assessment Author No 09/15/2015 7:31 AM CDT Jinny Dewey, CARRIER ASSOCIATE-OPERATIONS ADMINISTRATOR * Does person have difficulty dressing/bathing? Answer Date of Assessment Author No 09/15/2015 7:31 AM CDT Jinny Dewey, CARRIER ASSOCIATE-OPERATIONS ADMINISTRATOR * Does person have difficulty doing errands alone? Answer Date of Assessment Author No 09/15/2015 7:31 AM CDT Jinny Dewey, CARRIER ASSOCIATE-OPERATIONS ADMINISTRATOR documented as of this encounter Mental Status * Does person have difficulty concentrating/remembering/making decisions? Answer Entry Date Author No 09/15/2015 7:31 AM CDT Jinny Dewey, CARRIER ASSOCIATE-OPERATIONS ADMINISTRATOR documented in this encounter Plan of Treatment Upcoming Encounters Date Type Department Care Team (Late st Contact Info) Description 01/27/2025 2:00 PM CDT Office Visit [facility] - Nephrology [address] [place] [phone] 01/27/2025 2:30 PM CDT Office Visit [facility] - GI [address] [place] [phone] Michoacano Agosto MD [address] [place] [address] [place] [address] documented as of this encounter Goals Goal Patient Goal Type Associated Problems Recent Progress Patient-Stated? Author Medication Management General On track( 024 10:39 AM COMMUNICATIONS OPERATOR) Afshan Flores, RN Note: Expected end date: ongoing Interventions: Take all medications as prescribed Let your doctor know right away about any changes in your medications Make sure to request a refill of your medication at least one week prior to your last dose Safety General On track( 024 10:39 AM COMMUNICATIONS OPERATOR) No Afshan Perez, BEAR Note: Expected end [...] Under Investigation 04/03/2024 04/03/2024 04/04/2024 12:04 AM COMMUNICATIONS OPERATOR documented as of this encounter Care Teams Geothermal Electrical Engineer Relationship Specialty Start Date End Date Alana Christiansen MD [facility] [facility] [address] [place] [address] PCP - General 08/18/17 11/20/22 Madeleine Garcia MD [address] [place] [address] PCP - General Family Medicine 11/21/22 Yaritza Mora, RN Server Administrator 09/25/15 Afshan Perez, RN Registered Nurse Hepatology 09/01/17 Himanshu Steiner MD [address] [place], [place] [phone] Obstetrics and Gynecology 04/26/18 documented as of this encounter
--- OUTSIDE RECORDS SUMMARY | 2025-01-23 11:46 | XMS_ITS | Encounter Summary ---
Author Organization [facility] Address [address] [place] [address] Care Team Providers Care Teacher Home Therapy Name Role Phone Yaritza Mora RN Unavailable [phone] Afshan Perez RN Unavailable Unavailable Himanshu Steiner MD Unavailable [phone] Madeleine Garcia MD Primary Care Provider [phone] Encounter Details Date Type Department Care Team (Late st Contact Info) Description 01/20/2025 Orders Only [facility] - Nephrology [address] [facility], [place] [address] Chiquita Oglesby, CUSTOMER SUPPORT ENGINEER-TURRET LATHE MACHINIST [address] [facility] DIV [place] [address] Nephrolithiasis; S/P liver transplant in 11/29/2015 ([facility]); Long-term use of immunosuppressant medication; [...] and heating? Not hard at all 04/04/2024 [facility] - Occupational Stress [...] place to sleep or slept in a long-term (including now)? No 03/06/2023 Housing Stability Vital Sign Answer Stas e Recorded In the last 12 months, was t here a time when you were not able to pay the mortgage or rent on time? No 04/04/2024 In the past 12 months, how m any times have you moved where you were living? 1 04/04/2024 At any time in the past 12 m [facility], were you homeless or living in a long-term (including now)? No 04/04/2024 Comments No Sex [...] Description 01/27/2025 2:00 PM CDT Office Visit [facility] - Nephrology [address] [place] [phone] 01/27/2025 2:30 PM CDT Office Visit [facility] - GI [address] [place] [phone] Michoacano Agosto MD [address] [place] [address] [place] [address] documented as of this encounter Goals Goal Patient Goal Type Associated Problems Recent Progress Patient-Stated? Author Medication Management General On track( 024 10:[address] REPORTER) No Afshan Perez RN Note: Expected end date: ongoing Interventions: Take all medications as prescribed Let your doctor know right away about any changes in your medications Make sure to request a refill of your medication at least one week prior to your last dose Safety General On track( 024 10:[address] REPORTER) Afshan Flores, RN Note: Expected end date: [...] disease documented in this encounter Care Teams Teacher Home Therapy Relationship Specialty Start Date End Date Madeleine Garcia MD [address] [place] [address] PCP - General Family Medicine 11/21/22 Yaritza Mora, RN Benzol Still Operator 09/25/15 Afshan Perez, RN Registered Nurse Hepatology 09/01/17 Himanshu Steiner MD [address] [place], [place] [phone] Obstetrics and Gynecology 04/26/18 documented as of this encounter
--- OUTSIDE RECORDS SUMMARY | 2025-01-23 11:46 | XMS_ITS | Encounter Summary ---
Author Organization [facility] Address [address] [facility] [place] [address] Care Team Providers Care Pasta Press Operator Name Role Phone Yaritza Mora RN Unavailable [phone] Alana Christiansen MD Primary Care Provider [phone] Afshan Perez RN Unavailable Unavailable Himanshu Steiner MD Unavailable [phone] Madeleine Garcia MD Primary Care Provider [phone] Reason for Visit * Reason Comments Refill Request Encounter Details Date Type Department Care Team (Late st Contact Info) Description 01/15/2021 Refill [facility] - Nephrology [address] [place] [address], [place] [phone] Alan Martini MD [address] [place] [address] [place] [address] Refill Request Social History Tobacco Use Types [...] No 09/15/2015 7:31 AM CDT Jinny Dewey, BILINGUAL INSIDE SALES REPRESENTATIVE-FLOUR WORKER * Is person blind or have serious difficulty seeing? Answer Date of Assessment Author No 09/15/2015 7:31 AM CDT Jinny Dewey, BILINGUAL INSIDE SALES REPRESENTATIVE-FLOUR WORKER * Does person have serious difficulty walking/climbing stairs? Answer Date of Assessment Author No 09/15/2015 7:31 AM CDT Jinny Dewey, BILINGUAL INSIDE SALES REPRESENTATIVE-FLOUR WORKER * Does person have difficulty dressing/bathing? Answer Date of Assessment Author No 09/15/2015 7:31 AM CDT Jinny Dewey, BILINGUAL INSIDE SALES REPRESENTATIVE-FLOUR WORKER * Does person have difficulty doing errands alone? Answer Date of Assessment Author No 09/15/2015 7:31 AM CDT Jinny Dewey, BILINGUAL INSIDE SALES REPRESENTATIVE-FLOUR WORKER documented as of this encounter Mental Status * Does person have difficulty concentrating/remembering/making decisions? Answer Entry Date Author No 09/15/2015 7:31 AM CDT Jinny Dewey, BILINGUAL INSIDE SALES REPRESENTATIVE-FLOUR WORKER documented in this encounter Plan of Treatment Upcoming Encounters Date Type Department Care Team (Late st Contact Info) Description 01/27/2025 2:00 PM CDT Office Visit [facility] - Nephrology [address] [place] [phone] 01/27/2025 2:30 PM CDT Office Visit [facility] - GI [address] [place] [phone] Michoacano Agosto MD [address] [place] [address] [place] [address] documented as of this encounter Goals Goal Patient Goal Type Associated Problems Recent Progress Patient-Stated? Author Medication Management General On track( 024 10:39 AM BIG DATA ENGINEER) Afshan Flores, RN Note: Expected end date: ongoing Interventions: Take all medications as prescribed Let your doctor know right away about any changes in your medications Make sure to request a refill of your medication at least one week prior to your last dose Safety General On track( 024 10:39 AM BIG DATA ENGINEER) No Afshan Perez, RN Note: Expected end [...] Under Investigation 04/03/2024 04/03/2024 04/04/2024 12:04 AM BIG DATA ENGINEER documented as of this encounter Care Teams Pasta Press Operator Relationship Specialty Start Date End Date Alana Christiansen MD [address] [facility] [place] [address] PCP - General 08/18/17 11/20/22 Madeleine Garcia MD [address] [place] [address] PCP - General Family Medicine 11/21/22 Yaritza Mora, RN Engineering Scientist 09/25/15 Afshan Perez, RN Registered Nurse Hepatology 09/01/17 Himanshu Steiner MD [address] [facility] [address] [place], [place] [phone] Obstetrics and Gynecology 04/26/18 documented as of this encounter
--- OUTSIDE RECORDS SUMMARY | 2025-01-23 11:46 | XMS_ITS | Encounter Summary ---
Author Organization [facility] Address [address] [facility] [place] [address] Care Team Providers Care System Sales Consultant Name Role Phone Yaritza Mora RN Unavailable [phone] Alana Christiansen MD Primary Care Provider [phone] Afshan Perez RN Unavailable Unavailable Himanshu Steiner MD Unavailable [phone] Madeleine Garcia MD Primary Care Provider [phone] Encounter Details Date Type Department Care Team (Late st Contact Info) Description 04/26/2020 Lab Requisition [facility] Derm[facility] Lab [address] [facility], [place] [address] Paula Erazo, DO [address] [facility] 3 [place] [address] Social History Tobacco Use Types Packs/Day Years [...] No 09/15/2015 7:31 AM CDT Jinny Dewey, INSULATION BLANKET MAKER-PUBLIC SERVICES ASSISTANT * Is person blind or have serious difficulty seeing? Answer Date of Assessment Author No 09/15/2015 7:31 AM CDT Jniny Dewey, INSULATION BLANKET MAKER-PUBLIC SERVICES ASSISTANT * Does person have serious difficulty walking/climbing stairs? Answer Date of Assessment Author No 09/15/2015 7:31 AM CDT Jinny Dewey, INSULATION BLANKET MAKER-PUBLIC SERVICES ASSISTANT * Does person have difficulty dressing/bathing? Answer Date of Assessment Author No 09/15/2015 7:31 AM CDT Jinny Dewey, INSULATION BLANKET MAKER-PUBLIC SERVICES ASSISTANT * Does person have difficulty doing errands alone? Answer Date of Assessment Author No 09/15/2015 7:31 AM CDT Jinny Dewey, INSULATION BLANKET MAKER-PUBLIC SERVICES ASSISTANT documented as of this encounter Mental Status * Does person have difficulty concentrating/remembering/making decisions? Answer Entry Date Author No 09/15/2015 7:31 AM CDT Jinny Dewey, INSULATION BLANKET MAKER-PUBLIC SERVICES ASSISTANT documented in this encounter Plan of Treatment Upcoming Encounters Date Type Department Care Team (Late st Contact Info) Description 01/27/2025 2:00 PM CDT Office Visit [facility] - Nephrology [address] [place] [phone] 01/27/2025 2:30 PM CDT Office Visit [facility] - GI [address] [place] [phone] Michoacano Agosto MD [address] [place] [address] [place] [address] documented as of this encounter Goals Goal Patient Goal Type Associated Problems Recent Progress Patient-Stated? Author Medication Management General On track( 10:39 AM AUTO PHONE INSTALLER) No Afshan Perez, BEAR Note: Expected end date: ongoing Interventions: Take all medications as prescribed Let your doctor know right away about any changes in your medications Make sure to request a refill of your medication at least one week prior to your last dose Safety General On track( 10:39 AM AUTO PHONE INSTALLER) No Afshan Perez, RN Note: Expected end date: ongoing Interventions: Your nurse will assess your risk for falls/injury each visit Be aware of medications that could predispose you to falling Wear non-skid/rubber sole footwear Use some light at night in your room documented as of this encounter Procedures Procedure Name Priority Date/Time Associated Diagnosis Comments DERMATOPATHOLOGY Routine 04/25/2020 3:33 AM AUTO PHONE INSTALLER documented in this encounter Results * DERMATOPATHOLOGY (04/25/2020 3:33 AM AUTO PHONE INSTALLER) Case Report Dermatopathology Report Case: [id number] Authorizing Provider: Paula Erazo DO Collected: 04/25/2020 03:33 AM Ordering Location: [facility] DermPath Lab Received: 04/26/2020 07:51 AM Pathologist: Verona Durand MD Specimen: Skin, chest 4:56 PM [facility] DERMATOPATHOLOGY LABORATORY Final Diagnosis Specimen A. SKIN, chest: SUPERFICIAL DERMAL INTERSITIAL NEUTROPHILIC AND LYMPHOCYTIC INFILTRATE, SUPERFICIAL ASPECT OF (L72.0) (see microscopic description and comment) 4:56 PM [facility] DERMATOPATHOLOGY LABORATORY at 1656 AUTO PHONE INSTALLER Clinical History LPLK vs BCC vs nevus 4:56 PM [facility] DERMATOPATHOLOGY LABORATORY Gross Description Specimen A: Received is one formalin filled container labeled with the patient's name and designated chest. The specimen consists of a shave biopsy measuring 5x5x1 mm. Jar 0. 4:56 PM [facility] DERMATOPATHOLOGY LABORATORY Microscopic Description Specimen A. SKIN, [...] underlying process cannot be excluded. 4:56 PM AUTO PHONE INSTALLER DERMATOPATHOLOGY LABORATORY Disclaimer An external and internal positive and negative controls are appropriate for the histochemical, immunohistochemical and immunofluorescence stain(s) in this case (if any), except where stated explicitly. The performance characteristics of the stain(s) cited in this report were developed and its performance characteristic determined by the Dermatopathology Laboratory at [facility], directed by Dr. Ann Lewis. These tests need not be, and therefore are not, approved by the [place] Food and Drug Administration. The tests are used for clinical purposes. Billing Codes Specimen Charges Stain Charges 46757 1 66951 38118 1 1 1 4:56 PM AUTO PHONE INSTALLER DERMATOPATHOLOGY LABORATORY Embedded Images 4:56 PM AUTO PHONE INSTALLER DERMATOPATHOLOGY LABORATORY Pathology/Cytolo gy TISSUE SPECIMEN FROM SKIN / Unknown 04/25/2020 3:33 AM AUTO PHONE INSTALLER 04/26/2020 7:51 AM AUTO PHONE INSTALLER Paula Erazo DO LAB - PATHOLOGY/CYTOLOGY ORDERABLES Final Result DERMATOPATHOLOGY LABORATORY [facility] - Department of Dermatology [facility] Medicine [address] [place] [address], [address] [phone] documented in this encounter Visit Diagnoses Not on filedocumented in this encounter Additional Health Concerns Infection Onset Date Last Indicated Resolved Time COVID-19 Under Investigation 04/03/2024 04/03/2024 04/04/2024 12:04 AM AUTO PHONE INSTALLER documented as of this encounter Care Teams System Sales Consultant Relationship Specialty Start Date End Date Alana Christiansen MD [facility] [place] [phone] PCP - General 08/18/17 11/20/22 Madeleine Garcia MD [address] [place] [address] PCP - General Family Medicine 11/21/22 Yaritza Mora, RN Manager Clinic 09/25/15 Afshan Perez, BEAR Registered Nurse Hepatology 09/01/17 Himanshu Steiner MD [address] [facility] [address] [place], [place] [phone] Obstetrics and Gynecology 04/26/18 documented as of this encounter
--- OUTSIDE RECORDS SUMMARY | 2025-01-23 11:46 | XMS_ITS | Encounter Summary ---
Author Organization [facility] Address [address] [facility] [place] [address] Care Team Providers Care Solid Propellant Processor Name Role Phone Yaritza Mora RN Unavailable [phone] Alana Christiansen MD Primary Care Provider [phone] Afshan Perez RN Unavailable Unavailable Himanshu Steiner MD Unavailable [phone] Madeleine Garcia MD Primary Care Provider [phone] Reason for Visit * Reason Comments Vomiting Encounter Details Date Type Department Care Team (Late st Contact Info) Description 12/02/2021 Telephone [facility] - [address] [place] [phone] Afshan Perez, BEAR Vomiting Social History Tobacco [...] No 09/15/2015 7:31 AM CDT Jinny Dewey, EXPRESSIVE MUSIC THERAPIST-FINANCIAL COUNSELOR * Is person blind or have serious difficulty seeing? Answer Date of Assessment Author No 09/15/2015 7:31 AM CDT Jinny Dewey, EXPRESSIVE MUSIC THERAPIST-FINANCIAL COUNSELOR * Does person have serious difficulty walking/climbing stairs? Answer Date of Assessment Author No 09/15/2015 7:31 AM CDT Jinny Deweyn Cammy, EXPRESSIVE MUSIC THERAPIST-FINANCIAL COUNSELOR * Does person have difficulty dressing/bathing? Answer Date of Assessment Author No 09/15/2015 7:31 AM CDT Jinny Deweyn Cammy, EXPRESSIVE MUSIC THERAPIST-FINANCIAL COUNSELOR * Does person have difficulty doing errands alone? Answer Date of Assessment Author No 09/15/2015 7:31 AM CDT SkJinny hassann Cammy, EXPRESSIVE MUSIC THERAPIST-FINANCIAL COUNSELOR documented as of this encounter Mental Status * Does person have difficulty concentrating/remembering/making decisions? Answer Entry Date Author No 09/15/2015 7:31 AM CDT Jinny Dewey, EXPRESSIVE MUSIC THERAPIST-FINANCIAL COUNSELOR documented in this encounter Miscellaneous Notes * Telephone Encounter - Afshan Perez RN - 12/02/2021 9:09 AM CDT Call received from pt to report nause, vomiting, retching, and flank/abdominal pain. Attempt to take zofran with subsequent retching and vomiting. Pt believes acute onset to be kidney stones. RN instructs pt to report to [facility]. Pt verbalizes understanding. Dr. Martini and Dr. Agosto notified. documented in this encounter Plan of Treatment Upcoming Encounters Date Type Department Care Team (Late st Contact Info) Description 01/27/2025 2:00 PM CDT Office Visit [facility] - Nephrology [address] [place] [phone] 01/27/2025 2:30 PM CDT Office Visit [facility] - GI [address] [place] [phone] Michoacano Agosto MD [address] [place] [address] [place] [address] documented as of this encounter Goals Goal Patient Goal Type Associated Problems Recent Progress Patient-Stated? Author Medication Management General On track( 024 10:39 AM WARPER FIXER) No Afshan Perez, BEAR Note: Expected end date: ongoing Interventions: Take all medications as prescribed Let your doctor know right away about any changes in your medications Make sure to request a refill of your medication at least one week prior to your last dose Safety General On track( 024 10:39 AM WARPER FIXER) No Afshan Perez, RN Note: Expected end [...] Under Investigation 04/03/2024 04/03/2024 04/04/2024 12:04 AM WARPER FIXER documented as of this encounter Care Teams Solid Propellant Processor Relationship Specialty Start Date End Date Alana Christiansen MD [facility] [facility] [address] [place] [phone] PCP - General 08/18/17 11/20/22 Madeleine Garcia MD [address] [place] [address] PCP - General Family Medicine 11/21/22 Yaritza Mora, RN Dean Of Women 09/25/15 Afshan Perez, BEAR Registered Nurse Hepatology 09/01/17 Himanshu Steiner MD [address] [facility] [address] [place], [place] [phone] Obstetrics and Gynecology 04/26/18 documented as of this encounter
--- OUTSIDE RECORDS SUMMARY | 2025-01-23 11:46 | XMS_ITS | Encounter Summary ---
Author Organization [facility] Address [address] [place] [address] Care Team Providers Care Toaster Operator Name Role Phone Yaritza Mora RN Unavailable [phone] Afshan Perez RN Unavailable Unavailable Himanshu Steiner MD Unavailable [phone] Madeleine Garcia MD Primary Care Provider [phone] Encounter Details Date Type Department Care Team (Late st Contact Info) Description 02/25/2024 Lab Requisition [facility] - DermPath Lab [address] [facility], [place] [address] Paula Erazo DO [address] [facility] 3L [place] [address] Social History Tobacco Use Types Packs/Day Years [...] and heating? Not hard at all 03/06/2023 [facility] [place] of Occupat ional Health - Occupational Stress [...] place to sleep or slept in a group home (including now)? No 03/06/2023 Comments No [...] Office Visit [facility] - Nephrology [address] [place] [phone] 01/27/2025 2:30 PM CDT Office Visit [facility] - GI [address] [place] [phone] Michoacano Agosto MD [address] [place] [address] [place] [address] documented as of this encounter Goals Goal Patient Goal Type Associated Problems Recent Progress Patient-Stated? Author Medication Management General On track( 10:39 AM STEEL ERECTOR APPRENTICE) No Afshan Perez RN Note: Expected end date: ongoing Interventions: Take all medications as prescribed Let your doctor know right away about any changes in your medications Make sure to request a refill of your medication at least one week prior to your last dose Safety General On track( 10:39 AM STEEL ERECTOR APPRENTICE) No Afshan Perez RN Note: Expected end date: ongoing Interventions: Your nurse will assess your risk for falls/injury each visit Be aware of medications that could predispose you to falling Wear non-skid/rubber sole footwear Use some light at night in your room documented as of this encounter Procedures Procedure Name Priority Date/Time Associated Diagnosis Comments DERMATOPATHOLOGY Routine 02/25/2024 10:5 8 AM STEEL ERECTOR APPRENTICE documented in this encounter Results * DERMATOPATHOLOGY (02/25/2024 10:58 AM STEEL ERECTOR APPRENTICE) Case Report Dermatopathology Report Case: [id number] Authorizing Provider: Paula Erazo DO Collected: 02/25/2024 10:58 AM Ordering Location: [facility] - Received: 02/25/2024 04:04 PM DermPath Lab Pathologist: Shiloh Pyle MD Specimen: Skin, right cheek 3:49 PM STEEL ERECTOR APPRENTICE DERMATOPATHOLOGY LABORATORY Final Diagnosis Specimen A. 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 The specimen consists of a shave biopsy measuring 3x3x1 mm. Jar 0. 3:49 PM STEEL ERECTOR APPRENTICE DERMATOPATHOLOGY LABORATORY Microscopic Description Specimen A. SKIN, right cheek: Sections reveal parakeratosis, acanthosis and keratinocyte dysmaturation which is most prominent in the lower epidermis but focally extends through the entire epidermis. Ki-67 immunohistochemical stain reveals a elevated proliferative index throughout the epidermis. There is underlying dermal fibrosis. Additional deeper sections were obtained and reviewed. 3:49 PM STEEL ERECTOR APPRENTICE DERMATOPATHOLOGY LABORATORY Disclaimer An external and internal positive and negative controls are appropriate for the histochemical, immunohistochemical and immunofluorescence stain(s) in this case (if any), except where stated explicitly. The performance characteristics of the stain(s) cited in this report were developed and its performance characteristic determined by the Dermatopathology Laboratory at [facility], directed by Dr. Ann Lewis. These tests need not be, and therefore are not, approved by the [place] Food and Drug Administration. The tests are used for clinical purposes. Billing Codes Specimen Charges Stain Charges 45827 1 25507 1 4 3:49 PM STEEL ERECTOR APPRENTICE DERMATOPATHOLOGY LABORATORY Embedded Images 4 3:49 PM STEEL ERECTOR APPRENTICE DERMATOPATHOLOGY LABORATORY Pathology/Cytolo gy TISSUE SPECIMEN FROM SKIN / Unknown 02/25/2024 10:58 AM STEEL ERECTOR APPRENTICE 02/25/2024 4:04 PM STEEL ERECTOR APPRENTICE us Paula Erazo DO LAB - PATHOLOGY/CYTOLOGY ORDERABLES Final Result DERMATOPATHOLOGY LABORATORY [facility] - Department of Dermatology [facility] Medicine [address] [place] [address], [address] [phone] documented in this encounter Visit Diagnoses Not on filedocumented in this encounter Additional Health Concerns Infection Onset Date Last Indicated Resolved Time COVID-19 Under Investigation 04/03/2024 04/03/2024 04/04/2024 12:04 AM STEEL ERECTOR APPRENTICE documented as of this encounter Care Teams Toaster Operator Relationship Specialty Start Date End Date Madeleine Garcia MD [address] [place] [address] PCP - General Family Medicine 11/21/22 Yaritza Mora, RN Electrical Machine Builder 09/25/15 Afshan Perez, RN Registered Nurse Hepatology 09/01/17 Himanshu Steiner MD [address] [place], [place] [phone] Obstetrics and Gynecology 04/26/18 documented as of this encounter
--- OUTSIDE RECORDS SUMMARY | 2025-01-23 11:46 | XMS_ITS | Encounter Summary ---
Author Organization [facility] Address [address] [facility] [place] [address] Care Team Providers Care Track Oiler Name Role Phone Yaritza Mora RN Unavailable [phone] Afshan Perez RN Unavailable Unavailable Himanshu Steiner MD Unavailable [phone] Madeleine Garcia MD Primary Care Provider [phone] Encounter Details Date Type Department Care Team (Late st Contact Info) Description 01/20/2025 Orders Only [facility] - Nephrology [address] [place] [address], [place] [phone] Brittani Bhatt RN Social History Tobacco Use Types Packs/Day Years [...] and heating? Not hard at all 04/04/2024 [facility] [employer] of Occupat ional Health - Occupational Stress [...] place to sleep or slept in a senior care (including now)? No 03/06/2023 Housing Stability Vital Sign Answer Stas e Recorded In the last 12 months, was t here a time when you were not able to pay the mortgage or rent on time? No 04/04/2024 In the past 12 months, how m any times have you moved where you were living? 1 04/04/2024 At any time in the past 12 [facility], were you homeless or living in a senior care (including now)? No 04/04/2024 Comments No Sex and Gender Information Value Date Recorded Sex Assigned at Not on file Legal Sex Female 7:53 PM CDT Gender Identity Not on file Sexual Orientation Not on file documented as of this encounter Functional Status * Is person deaf or have serious hearing difficulty? Answer Date of Assessment Author No 04/04/2024 11:51 PM Murray Díaz, RN * Is person blind or have [...] Description 01/27/2025 2:00 PM CDT Office Visit [facility] - Nephrology [address] [place] [phone] 01/27/2025 2:30 PM CDT Office Visit [facility] - GI [address] [place] [phone] Michoacano Agosto MD [address] [place] [address] [place] [address] documented as of this encounter Goals Goal Patient Goal Type Associated Problems Recent Progress Patient-Stated? Author Medication Management General On track( 10:39 AM PROPERTIES SUPERVISOR) No Afshan Perez RN Note: Expected end date: ongoing Interventions: Take all medications as prescribed Let your doctor know right away about any changes in your medications Make sure to request a refill of your medication at least one week prior to your last dose Safety General On track( 10:39 AM PROPERTIES SUPERVISOR) Afshan Flores, BEAR Note: Expected end date: ongoing Interventions: Your nurse will assess your risk for falls/injury each visit Be aware of medications that could predispose you to falling Wear non-skid/rubber sole footwear Use some light at night in your room documented as of this encounter Visit Diagnoses Not on filedocumented in this encounter Care Teams Track Oiler Relationship Specialty Start Date End Date Madeleine Garcia MD [address] [place] [address] PCP - General Family Medicine 11/21/22 Yaritza Mora, RN Financial Controller 09/25/15 Afshan Perez, BEAR Registered Nurse Hepatology 09/01/17 Himanshu Steiner MD [address] [place], [place] [phone] Obstetrics and Gynecology 04/26/18 documented as of this encounter
--- OUTSIDE RECORDS SUMMARY | 2025-01-23 11:46 | XMS_ITS | Clinical Summary ---
Author Organization [facility] Address [address] [place] [address] Care Team Providers Care Access Services Representative Name Role Phone Yaritza Mora RN Unavailable Afshan Perez RN Unavailable Unavailable Himanshu Steiner MD Unavailable [phone] Madeleine Garcia MD Primary Care Provider [phone] Source Comments [facility],non-owned Affiliates and Associated Physician Practices is amultiple site organization consisting of ambulatory clinics and hospital sitesin [place], [place], [place] and [place]. This disclosure is being madepursuant to the Care Everywhere program and may not contain all information available regarding this patient. Last updated 18.[facility] Allergies Active Allergy Reactions Criticality Noted Date [...] fluticasone propionate (FLONASE) 50 MCG/ACT nasal spray [place] 2 (two) sprays into each nostril as needed Active Qcupx-J-Uvnxbu osidase (BEANO PO) Take by mouth once daily as needed Active lactase (Lactaid) 3000 units tablet Take [...] MOUTH EVERY DAY BEFORE BREAKFAST 90 tablet 09/13/19 25 Active predniSONE (Deltasone) 5 MG tablet TAKE 1 TABLET BY MOUTH EVERY DAY WITH BREAKFAST 90 tablet 3 09/13/19 25 Active folic acid (Folvite) 1 MG tabletIndicati ons:S/P liver transplant (HCC) TAKE 1 TABLET BY MOUTH EVERY DAY 90 tablet 09/13/19 25 Active vitamin D3 (Cholecalcifer ol) [...] daily 360 tablet 4 01/07/20 25 Active Probiotic Product (PROBIOTIC ADVANCED PO) Take 1 tablet by mouth once daily 025 Discontin ued(List Clean-Up) mycophenolate (Myfortic) [address] tablet Take [...] Fernandez Transplant Date: 03/04/2023 Donor: UNOS ID: [id number] Match ID: Criteria: CARO KDPI: CMV D+/R- EBV D+/R+ HLA 2 [...] were not included. Anuj James 1965 Referring Classified Ad Clerk: Zaheer Fernandez Listing Date: 01/27/2023 Dialysis Info: Type: Time: NOD, eGFR from cystatin C was 17 on 11/21/2022, GFR from 01/13/2023 was 17 Blood Type: O POS Body mass index is 20.92 kg/m . 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 Agosto Polycystic kidney disease 2000 no hospitalizations d/t infection/cysts rupturing, sister/brother/mom all had it. MRA brain at [facility] Reactive hypoglycemia Rectocele Uncomplicated asthma very [...] the text. Good candidate. Francie Aguirre MD chemical maker Transplant Surgery [facility] Patient with chronic illness - ESRD [...] 0% and 1% on 12/15/22 Overall Anuj James is a good patient for kidney transplantation. 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 Listed for transplant on 10/24/2015. MELD exception points of 28. [place] MELD day of transplant was 14. Liver [...] nephrology being w/u for renal tx 6. snf immunosuppression, high risk medication requiring monitoring, on [...] MILD CHRONIC CHOLECYSTITIS Pertinent Previous Committee Presentations: [facility] note: 01/22/2023 Induction Therapy: 3mg/kg Thymo Committee Discussion Details: Pt's case presented at [facility] today for approval to list. HH and evaluation testing reviewed but not limited to: - pt is a prior Liver txp back from 11/2015 d/t PLD here at [facility]. Pt following with liver team. - pt is NOD, reviewed most recent GFR and most recent eGFR from cystatin C - MRI abd imaging reviewed by Dr. Aguirre in clinic, no concerns that kidney(s) need to come out though she still wanted to review at [facility] with team. Per team, no kidney(s) need [...] abd w/o contrast: 11/01/2022 - scanned into [facility] Renal US: 10/09/2022 scanned into [facility] MRA brain w/o contrast: 10/15/2022 - records [...] Impression: It is the impression of this rn social work that Anuj James has several positive factors for kidney transplant candidacy including knowledge of illness, sufficient insurance coverage, stable financial situation for post transplant needs, no concerns regarding substance abuse, adequate support system, and appropriate discharge plan. 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 Patient appears to be a reasonable candidate for transplant from a psychosocial perspective. Post transplant arrangement forms are needed prior to being listed. 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 Listed for transplant on 10/24/2015. MELD exception points of 28. [place] MELD day of transplant was 14. Liver [...] 2000. Follows with Dr. Martini and with [facility]. Cr and renal function appear stable at 1.3 (unknown baseline) Plan: - IV fluids for sepsis, follow RFT and urine output - [facility] Assessment & Plan (09/15/2015 1:25 AM CDT): Dx in 2000. Follows with Dr. Martini and with [facility]. Cr and renal function appear stable at 1.3 (unknown baseline) Plan: - IV fluids for sepsis - [facility] Polycystic liver disease 09/15/2015 Assessment & Plan (09/15/2015 11:53 AM CDT): Pt has a hx of liver failure from polycystic disease, has varices. Taking pasireotide in a [facility] study Plan: - GI consult for any further recs - management for sepsis as above Assessment & Plan (09/15/2015 1:44 AM CDT): Pt has a hx of liver failure from polycystic disease, has varices. Taking paritreotide in a [facility] study Plan: - GI consult for any [...] Encounters Date Type Department Care Team Description 01/20/2025 Orders Only [facility] - Nephrology [address] [place] [phone] Brittani Bhatt RN 01/20/2025 Orders Only [facility] - Nephrology [address] [place] [address] [phone] Mendel, Chiquita E, PERINATOLOGY PHYSICIAN-BRICK TENDER Nephrolithiasis; S/P liver transplant in 11/29/2015 ([facility]); Long-term use of immunosuppressant medication; Vitamin D deficiency; Anemia in stage 2 chronic kidney disease 01/16/2025 Orders Only [facility] TRANSPLANT TELEHLT [address] [place] [phone] Mendel, Chiquita E, PERINATOLOGY PHYSICIAN-BRICK TENDER 01/13/2025 Orders Only [facility] - Nephrology [address] [place] [address] [phone] Mendel, Chiquita E, PERINATOLOGY PHYSICIAN-BRICK TENDER Nephrolithiasis; S/P liver transplant in 11/29/2015 ([facility]); Long-term use of immunosuppressant medication; Vitamin D deficiency; Anemia in stage 2 chronic kidney disease 01/06/2025 Refill [facility] RAD CSM [address] [place] [address] [phone] Colton Amin, DIRECTOR OF CLINICAL TRIALS REFILL 01/06/2025 Orders Only [facility] - Nephrology [address] [place] [address] [phone] Mendel, Chiquita E, PERINATOLOGY PHYSICIAN-BRICK TENDER Nephrolithiasis; S/P liver transplant in 11/29/2015 ([facility]); Long-term use of immunosuppressant medication; Vitamin D deficiency; Anemia in stage 2 chronic kidney disease 01/03/2025 Refill [facility] - Nephrology [address] [place] [address] [phone] Mendel, Chiquita E, PERINATOLOGY PHYSICIAN-BRICK TENDER MEDICATION REFILL 12/30/2024 Orders Only [facility] - Nephrology [address] [place] [address] [phone] Mendel, Chiquita E, PERINATOLOGY PHYSICIAN-BRICK TENDER Nephrolithiasis; S/P liver transplant in 11/29/2015 ([facility]); Long-term use of immunosuppressant medication; Vitamin D deficiency; Anemia in stage 2 chronic kidney disease 12/23/2024 Orders Only [facility] - Nephrology [address] [place] [address] [phone] Mendel, Chiquita E, PERINATOLOGY PHYSICIAN-BRICK TENDER Nephrolithiasis; S/P liver transplant in 11/29/2015 ([facility]); Long-term use of immunosuppressant medication; Vitamin D deficiency; Anemia in stage 2 chronic kidney disease 12/16/2024 Orders Only [facility] - Nephrology [address] [place] [address] [phone] Mendel, Chiquita E, PERINATOLOGY PHYSICIAN-BRICK TENDER Nephrolithiasis; S/P liver transplant in 11/29/2015 ([facility]); Long-term use of immunosuppressant medication; Vitamin D deficiency; Anemia in stage 2 chronic kidney disease 12/15/2024 Refill [facility] - Nephrology [address] [place] [address] [phone] Claudine Jovel, BEAR Refill Request 2024 Orders Only [facility] - Nephrology [address] [place] [address] [phone] Mendel, Chiquita E, PERINATOLOGY PHYSICIAN-BRICK TENDER Nephrolithiasis; S/P liver transplant in 11/29/2015 ([facility]); Long-term use of immunosuppressant medication; Vitamin D deficiency; Anemia in stage 2 chronic kidney disease 12/02/2024 Orders Only [facility] - Nephrology [address] [place] [address] [phone] Mendel, Chiquita E, PERINATOLOGY PHYSICIAN-BRICK TENDER Nephrolithiasis; S/P liver transplant in 11/29/2015 ([facility]); Long-term use of immunosuppressant medication; Vitamin D deficiency; Anemia in stage 2 chronic kidney disease 11/25/2024 Telephone [facility] - Nephrology [address] [place] [address], [place] [phone] MendelHarjita Cammy, PERINATOLOGY PHYSICIAN-BRICK TENDER Med Question 11/25/2024 Orders Only [facility] - Nephrology [address] [place] [address] [phone] Mendel, Chiquita E, PERINATOLOGY PHYSICIAN-BRICK TENDER Nephrolithiasis; S/P liver transplant in 11/29/2015 ([facility]); Long-term use of immunosuppressant medication; Vitamin D deficiency; Anemia in stage 2 chronic kidney disease 11/18/2024 Orders Only [facility] - Nephrology [address] [place] [address] [phone] Mendel, Chiquita E, PERINATOLOGY PHYSICIAN-BRICK TENDER Nephrolithiasis; S/P liver transplant in 11/29/2015 ([facility]); Long-term use of immunosuppressant medication; Vitamin D deficiency; Anemia in stage 2 chronic kidney disease 11/11/2024 Orders Only [facility] - Nephrology [address] [place] [address] [phone] Mendel, Chiquita E, PERINATOLOGY PHYSICIAN-BRICK TENDER Nephrolithiasis; S/P liver transplant in 11/29/2015 ([facility]); Long-term use of immunosuppressant medication; Vitamin D deficiency; Anemia in stage 2 chronic kidney disease 11/04/2024 Orders Only [facility] - Nephrology [address] [place] [address] [phone] Mendel, Chiquita E, PERINATOLOGY PHYSICIAN-BRICK TENDER Nephrolithiasis; S/P liver transplant in 11/29/2015 ([facility]); Long-term use of immunosuppressant medication; Vitamin D deficiency; Anemia in stage 2 chronic kidney disease 11/03/2024 3:40 PM CDT Office Visit [facility] - Nephrology [address] [place] [address] [phone] Long-term use of immunosuppressant medication (Primary Dx); Nephrolithiasis; S/P liver transplant in 11/29/2015 ([facility]); Vitamin D deficiency; Anemia in stage 2 chronic kidney disease; Chronic kidney disease-mineral and bone disorder; Hyperparathyroidism ([facility]); Kidney replaced by transplant ([facility]) 11/03/2024 Travel 10/28/2024 Orders Only [facility] - Nephrology [address] [place] [address] [phone] Zaheer Fernandez MD Encounter for monitoring tacrolimus therapy; Kidney replaced by transplant ([facility]); Vitamin D deficiency; Anemia of chronic renal failure, unspecified CKD stage; Chronic kidney disease-mineral and bone disorder; S/P living-donor kidney transplantation ([facility]); CKD stage 3a, GFR 45-59 ml/min ([facility]); Polycystic kidney disease; Recurrent nephrolithiasis; Other hyperlipidemia; Hyperparathyroidism ([facility]); S/P liver transplant ([facility]); Kidney transplanted ([facility]); Polycystic kidney, autosomal dominant; PKD (polycystic kidney disease); Nephrolithiasis; Hypothyroidism, unspecified type 10/26/2024 Telephone [facility] - Nephrology [address] [place] [phone] Zaheer Fernandez MD LABS ONLY 10/26/2024 Telephone [facility] - [address] [phone] Zaheer Fernandez MD LABS ONLY 10/25/2024 Travel from Last 3 Months Immunizations Immunization Administration [...] Daughter PKD CAD (Coronary Artery Disease) Father [place] Father Cancer - Colon Maternal Uncle Aneurysm [...] and heating? Not hard at all 04/04/2024 [facility] [place] [facility] - Occupational Stress [...] place to sleep or slept in a mcfp (including now)? No 03/06/2023 Housing Stability Vital Sign Answer Stas e Recorded In the last 12 months, was t here a time when you were not able to pay the mortgage or rent on time? No 04/04/2024 In the past 12 months, how m any times have you moved where you were living? 1 04/04/2024 At any time in the past 12 m [facility], were you homeless or living in a mcfp (including now)? No 04/04/2024 Comments No Sex [...] CDT Respiratory Rate 17 04/07/2024 11:38 AM UNDERCOATER Oxygen Saturation 98% 11/03/2024 3:40 PM CDT Inhaled Oxygen Concentration 45% 03/04/2023 4 :23 PM UNDERCOATER Weight 67.1 kg (148 lb) 11/03/2024 3:40 PM CDT Height 162.6 cm (5' 4) 07/29/2024 3:11 PM CDT Body Mass Index 25.4 07/29/2024 3:11 PM CDT Plan of Treatment Upcoming Encounters Date Type Department Care Team (Late st Contact Info) Description 01/27/2025 2:00 PM CDT Office Visit [facility] - Nephrology [address] [place] [address], [place] [phone] 01/27/2025 2:30 PM CDT Office Visit [facility] - GI [address] [place] [address] [place] [phone] Michoacano Agosto MD [address] [place] [address] [place] [address] Health Maintenance Due Date Last Done Comments [...] 08/21/2022, Additional history exists SCREENING FOR DIABETES 01/17/2028 , 12/20/2024, 11/23/2024, Additional history exists LIPID TESTING 01/16/2030 01/16/2025, 060 05/2024, 05/30/2024, Additional history exists COLON MONITORING 08/29/2031 08/28/2021, [...] Medication Management General On track( 10:39 AM UNDERCOATER) No Afshan Perez, BEAR Note: Expected end date: ongoing Interventions: Take all medications as prescribed Let your doctor know right away about any changes in your medications Make sure to request a refill of your medication at least one week prior to your last dose Safety General On track( 10:39 AM UNDERCOATER) No Afshan Perez, BEAR Note: Expected end date: ongoing Interventions: Your nurse will assess your risk for falls/injury each visit Be aware of medications that could predispose you to falling Wear non-skid/rubber sole footwear Use some light at night in your room Procedures Procedure Name Priority Date/Time Associated Diagnosis Comments CREATININE URINE RANDOM Routine 01/16/2025 8:28 AM CDT Nephrolithiasis S/P liver transplant in 11/29/2015 ([facility]) Long-term use of immunosuppressant medication Vitamin D deficiency Anemia in stage 2 chronic kidney disease PROTEIN URINE RANDOM QUANTITATIVE Routine 01/16/2025 8:28 AM CDT Nephrolithiasis S/P liver transplant in 11/29/2015 ([facility]) Long-term use of immunosuppressant medication Vitamin D deficiency Anemia in stage 2 chronic kidney disease URINALYSIS W/MICROSCOPIC NO CULTURE Routine 01/16/2025 8:28 AM CDT Nephrolithiasis S/P liver transplant in 11/29/2015 ([facility]) Long-term use of immunosuppressant medication Vitamin D deficiency Anemia in stage 2 chronic kidney disease PHOSPHORUS BLOOD Routine 01/16/2025 8:28 AM CDT Nephrolithiasis S/P liver transplant in 11/29/2015 ([facility]) Long-term use of immunosuppressant medication Vitamin D deficiency Anemia in stage 2 chronic kidney disease MAGNESIUM BLOOD Routine 01/16/2025 8:28 AM CDT Nephrolithiasis S/P liver transplant in 11/29/2015 ([facility]) Long-term use of immunosuppressant medication Vitamin D deficiency Anemia in stage 2 chronic kidney disease COMPREHENSIVE METABOLIC PANEL Routine 01/16/2025 8:28 AM CDT Nephrolithiasis S/P liver transplant in 11/29/2015 ([facility]) Long-term use of immunosuppressant medication Vitamin D deficiency Anemia in stage 2 chronic kidney disease CBC W AUTO DIFFERENTIAL Routine 01/16/2025 8:28 AM CDT Nephrolithiasis S/P liver transplant in 11/29/2015 ([facility]) Long-term use of immunosuppressant medication Vitamin D deficiency Anemia in stage 2 chronic kidney disease TACROLIMUS LEVEL Routine 01/16/2025 8:28 AM CDT Nephrolithiasis S/P liver transplant in 11/29/2015 ([facility]) Long-term use of immunosuppressant medication Vitamin D deficiency Anemia in stage 2 chronic kidney disease CYTOMEGALOVIRUS QUANT BLOOD 01/16/2025 8:25 AM CDT VITAMIN D 25-HYDROXY 01/16/2025 8:25 AM CDT URIC ACID BLOOD 01/16/2025 8:25 AM CDT LIPID PROFILE 01/16/2025 8:25 AM CDT LITHOLINK 24HR URINE PANEL QUANT (LC DIRECT SHIP) Routine 12/21/2024 7:00 AM CDT Nephrolithiasis CREATININE URINE RANDOM Routine 12/20/2024 8:33 AM CDT Nephrolithiasis S/P liver transplant in 11/29/2015 ([facility]) Long-term use of immunosuppressant medication Vitamin D deficiency Anemia in stage 2 chronic kidney disease PROTEIN URINE RANDOM QUANTITATIVE Routine 12/20/2024 8:33 AM CDT Nephrolithiasis S/P liver transplant in 11/29/2015 ([facility]) Long-term use of immunosuppressant medication Vitamin D deficiency Anemia in stage 2 chronic kidney disease URINALYSIS W/MICROSCOPIC NO CULTURE Routine 12/20/2024 8:33 AM CDT Nephrolithiasis S/P liver transplant in 11/29/2015 ([facility]) Long-term use of immunosuppressant medication Vitamin D deficiency Anemia in stage 2 chronic kidney disease PHOSPHORUS BLOOD Routine 12/20/2024 8:33 AM CDT Nephrolithiasis S/P liver transplant in 11/29/2015 ([facility]) Long-term use of immunosuppressant medication Vitamin D deficiency Anemia in stage 2 chronic kidney disease MAGNESIUM BLOOD Routine 12/20/2024 8:33 AM CDT Nephrolithiasis S/P liver transplant in 11/29/2015 ([facility]) Long-term use of immunosuppressant medication Vitamin D deficiency Anemia in stage 2 chronic kidney disease COMPREHENSIVE METABOLIC PANEL Routine 12/20/2024 8:33 AM CDT Nephrolithiasis S/P liver transplant in 11/29/2015 ([facility]) Long-term use of immunosuppressant medication Vitamin D deficiency Anemia in stage 2 chronic kidney disease CBC W AUTO DIFFERENTIAL Routine 12/20/2024 8:33 AM CDT Nephrolithiasis S/P liver transplant in 11/29/2015 ([facility]) Long-term use of immunosuppressant medication Vitamin D deficiency Anemia in stage 2 chronic kidney disease TACROLIMUS LEVEL Routine 12/20/2024 8:33 AM CDT Nephrolithiasis S/P liver transplant in 11/29/2015 ([facility]) Long-term use of immunosuppressant medication Vitamin D deficiency Anemia in stage 2 chronic kidney disease CREATININE URINE RANDOM Routine 11/23/2024 8:56 AM CDT Nephrolithiasis S/P liver [place] 11[place]29/2015 [place] Long-term use of immunosuppressant medication Vitamin D deficiency Anemia in stage 2 chronic kidney disease PROTEIN URINE RANDOM QUANTITATIVE Routine 11/23/2024 8:56 AM CDT Nephrolithiasis S/P liver transplant in 11[place]29/2015 [place] Long-term use of immunosuppressant medication Vitamin D deficiency Anemia in stage 2 chronic kidney disease URINALYSIS W/MICROSCOPIC NO CULTURE Routine 11/23/2024 8:56 AM CDT Nephrolithiasis S/P liver transplant in 11/29/2015 [place] Long-term use of immunosuppressant medication Vitamin D deficiency Anemia in stage 2 chronic kidney disease PHOSPHORUS BLOOD Routine 11/23/2024 8:56 AM CDT Nephrolithiasis S/P liver transplant in 11/29/2015 ([facility] Long-term use of immunosuppressant medication Vitamin D deficiency Anemia in stage 2 chronic kidney disease MAGNESIUM BLOOD Routine 11/23/2024 8:56 AM CDT Nephrolithiasis S/P liver transplant in 11/29/2015 ([facility] Long-term use of immunosuppressant medication Vitamin D deficiency Anemia in stage 2 chronic kidney disease COMPREHENSIVE METABOLIC PANEL Routine 11/23/2024 8:56 AM CDT Nephrolithiasis S/P liver transplant in 11/29/2015 ([facility] Long-term use of immunosuppressant medication Vitamin D deficiency Anemia in stage 2 chronic kidney disease CBC W AUTO DIFFERENTIAL Routine 11/23/2024 8:56 AM CDT Nephrolithiasis S/P liver transplant in 11/29/2015 [place] Long-term use of immunosuppressant medication Vitamin D deficiency Anemia in stage 2 chronic kidney disease TACROLIMUS LEVEL Routine 11/23/2024 8:56 AM CDT Nephrolithiasis S/P liver transplant in 11/29/2015 ([facility]) Long-term use of immunosuppressant medication Vitamin D deficiency Anemia in stage 2 chronic kidney disease CYTOMEGALOVIRUS QUANT BLOOD Routine 10/26/2024 9:28 AM CDT Encounter for monitoring tacrolimus therapy Kidney replaced by transplant ([facility]) Vitamin D deficiency Anemia of chronic renal failure, unspecified CKD stage 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 ([facility]) CKD stage 3a, GFR 45-59 ml/min ([facility]) Polycystic kidney disease Recurrent nephrolithiasis Other hyperlipidemia Hyperparathyroidism ([facility]) S/P liver transplant ([facility]) Kidney transplanted ([facility]) Polycystic kidney, autosomal dominant PKD (polycystic kidney disease) Nephrolithiasis Hypothyroidism, unspecified type BK VIRUS PCR QUANTITATIVE Routine 10/26/2024 9:28 AM CDT Encounter for monitoring tacrolimus therapy Kidney replaced by transplant ([facility]) Vitamin D deficiency Anemia of chronic renal failure, unspecified CKD stage 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 ([facility]) CKD stage 3a, GFR 45-59 ml/min ([facility]) Polycystic kidney disease Recurrent nephrolithiasis Other hyperlipidemia Hyperparathyroidism ([facility]) S/P liver transplant ([facility]) Kidney transplanted ([facility]) Polycystic kidney, autosomal dominant PKD (polycystic kidney disease) Nephrolithiasis Hypothyroidism, unspecified type MAGNESIUM BLOOD Routine 10/26/2024 9:28 AM CDT Encounter for monitoring tacrolimus therapy Kidney replaced by transplant ([facility]) Vitamin D deficiency Anemia of chronic renal failure, unspecified CKD stage 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 ([facility]) CKD stage 3a, GFR 45-59 ml/min ([facility]) Polycystic kidney disease Recurrent nephrolithiasis Other hyperlipidemia Hyperparathyroidism ([facility]) S/P liver transplant ([facility]) Kidney transplanted ([facility]) Polycystic kidney, autosomal dominant PKD (polycystic kidney disease) Nephrolithiasis Hypothyroidism, unspecified type PHOSPHORUS BLOOD Routine 10/26/2024 9:28 AM CDT Encounter for monitoring tacrolimus therapy Kidney replaced by transplant ([facility]) Vitamin D deficiency Anemia of chronic renal failure, unspecified CKD stage 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 ([facility]) CKD stage 3a, GFR 45-59 ml/min (HCC) Polycystic kidney disease Recurrent nephrolithiasis Other hyperlipidemia Hyperparathyroidism (HCC) S/P liver transplant (HCC) Kidney transplanted (HCC) Polycystic kidney, autosomal dominant PKD (polycystic kidney disease) Nephrolithiasis Hypothyroidism, unspecified type PROTEIN URINE RANDOM QUANTITATIVE Routine 10/26/2024 9:28 AM CDT Encounter for monitoring tacrolimus therapy Kidney replaced by transplant ([facility]) Vitamin D deficiency Anemia of chronic renal [...] monitoring tacrolimus therapy Kidney replaced by transplant ([facility]) Vitamin D deficiency Anemia of chronic renal [...] monitoring tacrolimus therapy Kidney replaced by transplant ([facility]) Vitamin D deficiency Anemia of chronic renal [...] monitoring tacrolimus therapy Kidney replaced by transplant ([facility]) Vitamin D deficiency Anemia of chronic renal failure, unspecified CKD stage 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 (HCC) CKD stage 3a, GFR 45-59 ml/min (HCC) Polycystic kidney disease Recurrent nephrolithiasis Other hyperlipidemia Hyperparathyroidism (HCC) S/P liver transplant (HCC) Kidney transplanted (HCC) Polycystic kidney, autosomal dominant PKD (polycystic kidney disease) Nephrolithiasis Hypothyroidism, unspecified type HEPATITIS C RNA QUANTITATIVE STAT 03/04/2023 8:34 AM UNDERCOATER Pre-transplant evaluation for kidney transplant HIV-1 HIV-2 ANTIBODY + HIV P24 AG PANEL STAT 03/04/2023 8:34 AM UNDERCOATER Pre-transplant evaluation for kidney transplant ENDOSCOPY, COLON, SCREENING Routine 08/28/2021 10:11 AM CDT from Last 3 Months or Most Recently Relevant to Health Maintenance Results * URINALYSIS COMPLETE W MICROSCOPIC (01/16/2025 8:28 AM CDT) Only the most recent of3 resultswithin the time period is included. Color UA YELLOW YELLOW [facility] Appearance CLEAR CLEAR [facility] Specific Neeses UA 1.006 1.001 - 1.035 [facility] pH UA 7.0 5.0 - 8.0 [facility] Glucose UA NEGATIVE [...] elements seen were reported. Test Performed at: [facility] [address] LUZ ELENA BERGER MD Urine URINE SPECIMEN OBTAINED BY CLEAN CATCH PROCEDURE / Unknown 01/16/2025 8:28 AM CDT 01/16/2025 8:29 AM CDT Chiquita Oglesby [facility] - URINALYSIS ORDERA BLES Final Result Performing Organization Address [facility] de Phone Number [facility] [address] [phone] * TACROLIMUS LEVEL (01/16/2025 8:28 AM CDT) Only the most recent of4 resultswithin the time period is included. Pathologist [facility] Tacrolimus 5.9 mcg/L [facility] Comment: No definitive therapeutic or toxic ranges have been established. Optimal blood drug levels are influenced by type of transplant, patient response, time post- transplant, co-administration of other drugs, and drug formulation. The following trough range is a suggested guideline: 5.0-20.0 mcg/L. REPORT COMMENT: FASTING:YES Test Performed at: [employer] [address] [place] [address] LUZ ELENA BERGER MD Blood BLOOD SPECIMEN / Unknown 01/16/2025 8:28 AM CDT 01/16/2025 8:29 AM CDT Chiquita Oglesby [facility] - THERAPEUTIC DRUG MONITORING ORDERABLES Final Result Performing Organization Address [facility] Phone Number [facility] [address] [place] [address] * (ABNORMAL) CBC W AUTO DIFFERENTIAL (01/16/2025 8:28 AM CDT) Only the most recent of4 resultswithin the time period is included. Pathologist [facility] White Blood Cell Count 5.4 3.8 - 10.8 Thousand/ uL [facility] RBC 3.94 3.80 - 5.10 Million/u L [facility] Hemoglobin 11.7 11.7 - 15.5 g/dL [facility] Hematocrit 36.6 35.0 - 45.0 % [facility] MCV 92.9 80.0 - 100.0 fL [facility] MCH 29.7 27.0 - 33.0 pg [facility] MCHC 32.0 32.0 - 36.0 g/dL [facility] Comment: For adults, a slight decrease in the calculated MCHC value (in the range of 30 to 32 g/dL) is most likely not clinically significant; however, it should be interpreted with caution in correlation with other red cell parameters and the patient's clinical condition. RDW 12.6 11.0 - 15.0 % [facility] Platelet Count 188 140 - 400 Thousand/ uL [facility] MPV 9.4 7.5 - 12.5 fL [facility] Neutrophil Absolute 4142 1500 - 7800 cells/uL [facility] Lymphocytes Absolute 799(L) 850 - 3900 cells/uL [facility] Absolute Monocytes 329 200 - 950 cells/uL [facility] Eosinophils Absolute 92 15 - 500 cells/uL [facility] Basophils Absolute 38 0 - 200 cells/uL [facility] Granulocytes % 76.7 % [facility] Lymphocytes % 14.8 % [facility] Monocytes % 6.1 % [facility] Eosinophils % 1.7 % [facility] Basophils % 0.7 % [facility] Comment: Test Performed at: [facility] [employer] [facility] [address] LUZ ELENA BERGER MD Blood BLOOD SPECIMEN / Unknown 01/16/2025 8:28 AM CDT 01/16/2025 8:29 AM CDT Chiquita Oglesby APRN-[facility] - HEMATOLOGY ORDERA BLES Final Result Performing Organization Address [facility] Co de Phone Number [address] [address] * (ABNORMAL) PROTEIN URINE RANDOM QUANTITATIVE (01/16/2025 8:28 AM CDT) Only the most recent of4 resultswithin the time period is included. Protein Random Urine 2(L) 5 - 24 mg/dL [facility] Comment: Test Performed at: [facility] [employer] [facility] [address] LUZ ELENA BERGER MD Urine URINE SPECIMEN OBTAINED BY CLEAN CATCH PROCEDURE / Unknown 01/16/2025 8:28 AM CDT 01/16/2025 8:29 AM CDT Chiquita [facility] - URINE CHEMISTRY O RDERABLES Final Result Performing Organization Address City/[facility]/ZIP Co de Phone Number [address] [address] * (ABNORMAL) COMPREHENSIVE METABOLIC PANEL (01/16/2025 8:28 AM CDT) Only the most recent of4 resultswithin the time period is included. [facility] Glucose 91 65 - 99 mg/dL [facility] Comment: Fasting reference interval BUN 22 7 - 25 mg/dL [facility] Creatinine 1.14(H) 0.50 - 1.03 mg/dL [facility] eGFR by Cystatin C 55(L) > OR = 60 mL/min/1. 73m2 [facility] BUN/Creatinine Ratio 19 6 - 22 (calc) [facility] Sodium 135 135 - 146 mmol/L [facility] Potassium 4.1 3.5 - 5.3 mmol/L [facility] Chloride 99 98 - 110 mmol/L [facility] CO2 29 20 - 32 mmol/L [facility] Calcium 9.5 8.6 - 10.4 mg/dL [facility] Protein Total 6.5 6.1 - 8.1 g/dL [facility] Albumin 4.4 3.6 - 5.1 g/dL [facility] Globulin Total 2.1 1.9 - 3.7 g/dL (calc) [facility] Albumin/Globulin Ratio 2.1 1.0 - 2.5 (calc) [facility] Bilirubin Total 0.7 0.2 - 1.2 mg/dL [facility] Alkaline Phosphatase 47 37 - 153 U/L [facility] AST 12 10 - 35 U/L [facility] ALT 11 6 - 29 U/L [facility] Comment: Test Performed at: [facility] [address] LUZ ELENA BERGER MD Blood BLOOD SPECIMEN / Unknown 01/16/2025 8:28 AM CDT 01/16/2025 8:29 AM CDT us Chiquita Oglesby PERINATOLOGY PHYSICIAN-[facility] - CHEMISTRY ORDERAB LES Final Result [address] [address] * PHOSPHORUS BLOOD (01/16/2025 8:28 AM CDT) Only the most recent of4 resultswithin the time period is included. [facility] Phosphorus 3.6 2.5 - 4.5 mg/dL [facility] Comment: Test Performed at: [facility] [address] LUZ ELENA BERGER MD Blood BLOOD SPECIMEN / Unknown 01/16/2025 8:28 AM CDT 01/16/2025 8:29 AM CDT Chiquita Oglesby APRN-[facility] - CHEMISTRY ORDERAB LES Final Result Performing Organization Address City/[facility] Co de Phone Number [address] [address] * MAGNESIUM BLOOD (01/16/2025 8:28 AM CDT) Only the most recent of4 resultswithin the time period is included. Magnesium 2.0 1.5 - 2.5 mg/dL [facility] Comment: Test Performed at: [facility] [address] LUZ ELENA BERGER MD Blood BLOOD SPECIMEN / Unknown 01/16/2025 8:28 AM CDT 01/16/2025 8:29 AM CDT Chiquita [facility] - CHEMISTRY ORDERAB LES Final Result Performing Organization Address [facility] de Phone Number [address] [address] * CREATININE URINE RANDOM (01/16/2025 8:28 AM CDT) Only the most recent of3 resultswithin the time period is included. Creatinine Urine 25 20 - 275 mg/dL [facility] Comment: Test Performed at: [facility] [address] LUZ ELENA BERGER MD Urine URINE SPECIMEN OBTAINED BY CLEAN CATCH PROCEDURE / Unknown 01/16/2025 8:28 AM CDT 01/16/2025 8:29 AM CDT Chiquita [facility] - URINE CHEMISTRY O RDERABLES Final Result Performing Organization Address City/[facility] Co de Phone Number [address] [address] * CYTOMEGALOVIRUS QUANT BLOOD (01/16/2025 8:25 AM CDT) Only the most recent of2 resultswithin the time period is included. Cytomegalovirus DNA Quantitative PCR Not Detected Not Detected IU/mL [facility] Cytomegalovirus DNA Quantitative PCR Not Detected Not Detected Log IU/mL [facility] Comment: (Note) For additional information, please refer to http://education.JibJab.[employer]/faq/CMVandEBVPCR (This link is being provided for informational/educational purposes only.) [facility] [address] [address],[address] [facility] [address] Sharon Arango MD, PhD Test Performed at: [facility] [address] [place] [address] [address] [place] [address] SHARON ARANGO MD,PHD 01/16/2025 8:25 AM CDT 01/16/2025 8:27 AM CDT Chiquita Oglesby APRN-[facility] - CHEMISTRY ORDERAB LES Final Result Performing Organization Address [facility] Co de Phone Number [address] [address] * URIC ACID BLOOD (01/16/2025 8:25 AM CDT) Uric Acid 4.9 2.5 - 7.0 mg/dL [facility] Comment: Therapeutic target for gout patients: <6.0 mg/dL Test Performed at: [facility] [address] LUZ ELENA BERGER MD 01/16/2025 8:25 AM CDT 01/16/2025 8:27 AM CDT Chiquita Oglesby PERINATOLOGY PHYSICIAN-[facility] - CHEMISTRY ORDERAB LES Final Result Performing Organization Address City/[facility] Co de Phone Number [address] [address] * VITAMIN D 25-HYDROXY (01/16/2025 8:25 AM CDT) Vitamin D, 25 Hydroxy 49 30 - 100 ng/mL [facility] Comment: Vitamin D Status 25-OH Vitamin D: Deficiency: <20 ng/mL Insufficiency: 20 - 29 ng/mL Optimal: > or = 30 ng/mL For 25-OH Vitamin D testing on patients on D2-supplementation and patients for whom quantitation of D2 and D3 fractions is required, the QuestAssureD(TM) 25-OH VIT D, (D2,D3), LC/MS/MS is recommended: order code 64928 (patients >2yrs). See Note 1 Note 1 For additional information, please refer to http://education.Spectrawatt/faq/SDV560 (This link is being provided for informational/ educational purposes only.) Test Performed at: [employer] [address] [place] [address] LUZ ELENA BERGER MD 01/16/2025 8:25 AM CDT 01/16/2025 8:27 AM CDT Chiquita Oglesby PERINATOLOGY PHYSICIAN-[facility] - CHEMISTRY ORDERAB LES Final Result [facility] [address] [place] [address] * LIPID PROFILE (01/16/2025 8:25 AM CDT) Cholesterol 159 <200 mg/dL [facility] HDL Cholesterol 71 > OR = 50 mg/dL [facility] Triglycerides 88 <150 mg/dL [facility] LDL Calculated 71 mg/dL (calc) [facility] Comment: Reference range: <100 Desirable range <100 mg/dL for primary prevention; <70 mg/dL for patients with CHD or diabetic patients with > or = 2 CHD risk factors. LDL-C is now calculated using the Vini-Shoaib calculation, which is a validated novel method providing better accuracy than the Friedewald equation in the estimation of LDL-C. Vini SS et al. KAZ. 2013;310(19): 1101-6669 (http://education.Spectrawatt/faq/BUR520) CHOL/HDLC RATIO 2.2 <5.0 (calc) [facility] Non HDL Cholesterol 88 <130 mg/dL (calc) [facility] Comment: For patients with diabetes plus 1 major ASCVD risk factor, treating to a non-HDL-C goal of <100 mg/dL (LDL-C of <70 mg/dL) is considered a therapeutic option. Test Performed at: [facility] [address] LUZ ELENA BERGER MD 01/16/2025 8:25 AM CDT 01/16/2025 8:27 AM CDT Chiquita Olgesby PERINATOLOGY PHYSICIAN-[facility] - CHEMISTRY ORDERAB LES Final Result [facility] [address] [place] [address] * (ABNORMAL) LITHOLINK 24HR URINE PANEL QUANT [...] - 12/27/2024 6:09 AM CDT Performed at: [address] [place] [id number] Superintendent Custodian Janitor: Hoang Gallagher PhD, Phone: [phone] Chiquita Oglesby PERINATOLOGY PHYSICIAN-[facility] T[facility] - URINE CHEMISTRY O RDERABLES Edited Result - Final [facility] INSURANCE BILL [address] [place] [address] * BK VIRUS PCR QUANTITATIVE (10/26/2024 9:28 AM CDT) BK Virus DNA Quantitative PCR Not Detected Not Detected IU/mL [facility] BK Virus DNA PCR Not Detected Not Detected Log IU/mL [facility] Comment: [facility] [address] [facility] [address] [facility] [id number] Sharon Arango MD, PhD Test Performed at: [facility] [address] [place] [address] SHARON ARANGO MD,PHD Blood BLOOD SPECIMEN / Unknown 10/26/2024 9:28 AM CDT 10/26/2024 9:29 AM CDT Zaheer Fernandez MD LAB - CHEMISTRY ORDERABLES F inal Result [facility] [address] [place] [address] * HIV-1 HIV-2 ANTIBODY + HIV P24 AG PANEL (03/04/2023 8:34 AM UNDERCOATER) Pathologist [facility] HIV Antigen/Antibod y 1 & 2 Non-reacti ve Non-react adriana 03/04/2023 9:39 AM UNDERCOATER [facility] Comment:No Laboratory eviden ce of HIV infection. Blood BLOOD SPECIMEN / Unknown Venipuncture / Unknown 03/04/2023 8:34 AM UNDERCOATER 03/04/2023 8:45 AM UNDERCOATER us George Gary PA-C LAB - CHEMISTRY ORDERABLES Final Result Performing Organization Address City/[facility]/ZIP Co de Phone Number [facility] [address] [place] [address], [facility] [phone] * HEPATITIS C RNA QUANTITATIVE (03/04/2023 8:34 AM UNDERCOATER) [facility] Hepatitis C RNA PCR, Interp Not detected Not detected 03/05/2023 9:57 AM UNDERCOATER [facility] Blood BLOOD SPECIMEN / Unknown Venipuncture / Unknown 03/04/2023 8:34 AM UNDERCOATER 03/04/2023 8:45 AM UNDERCOATER Narrative [facility] - 03/05/2023 9:57 AM UNDERCOATER The Hepatitis C viral (HCV) RNA analysis utilized a serum sample, real-time reverse rn interventional PCR, and is reported as Not Detected, [...] the isolation of HCV RNA with reverse rn interventional of genomic HCV RNA followed by real-time PCR in the presence of an unrelated RNA internal control. The internal control ensures that RNA is isolated, and that no general significant inhibitors of the RT-PCR process are present. The analysis was performed using a U.S. FDA approved test methodology. us George Gary PA-C LAB - CHEMISTRY ORDERABLES Final Result [facility] [address] [facility] [place] [address], [facility] [phone] * ENDOSCOPY, COLON, SCREENING (08/28/2021 10:11 AM CDT) Report Endoscopy POC Endoscopy Department Report _ Patient Name: Anuj James Procedure Date: 08/28/2021 10:11 AM Date of : 1965 Classification: Outpatient Gender: Female Ethnicity: Not or Race: White _ Providers: Daniela Cazares ([facility])MD Referring MD: Alana Curtis (Referring MD), [place] [...] or abscess without bleeding CPT copyright 2019 [employer]. All rights reserved. The codes documented in this report are preliminary and upon console manager review may be revised to meet current compliance requirements. Daniela Cazares MD ([facility]) 08/28/2021 11:12:39 AM Note Initiated On: 08/28/2021 10:11 AM Number of Addenda: [address] PROVATION 08/28/2021 10:1 1 AM CDT us Daniela Cazares MD GI PROCEDURE ORDERABLES E dited Result - Final [facility] PROVATION from Last 3 Months or Most Recently Relevant to Health Maintenance Insurance MEDICARE [facility] [place] [id number] [place] [id number] Advance Directives * Full Code (Latest Code [...] 12:32 AM 09/26/2015 5:34 AM Care Teams Access Services Representative Relationship Specialty Start Date End Date Madeleine Garcia MD [address] [place] [address] PCP - General Family Medicine 11/21/22 Yaritza Mora, RN Ice Grinder 09/25/15 Afshan Perez, BEAR Registered Nurse Hepatology 09/01/17 Himanshu Steiner MD [address] [facility] [address] [place], [place] [id number] Obstetrics and Gynecology 04/26/18
--- OUTSIDE RECORDS SUMMARY | 2025-01-23 11:46 | XMS_ITS | Encounter Summary ---
Author Organization [facility] Address [address] [facility] [place] [address] Care Team Providers Care Stationary Engineer Apprentice Name Role Phone Yaritza Mora RN Unavailable [phone] Alana Christiansen MD Primary Care Provider [phone] Afshan Perez RN Unavailable Unavailable Himanshu Steienr MD Unavailable [phone] Madeleine Garcia MD Primary Care Provider [phone] Reason for Visit * Reason Onset Date Comments MEDICATION REFILL 03/18/2018 Encounter Details Date Type Department Care Team (Late st Contact Info) Description 03/18/2018 Refill [facility] GI [address] [place] [address] Michoacano Agosto MD [address] [place] [address] MEDICATION REFILL Social History Tobacco Use Types [...] No 09/15/2015 7:31 AM CDT Jinny Dewey, PATTERN MARKER-OCULARIST * Is person blind or have serious difficulty seeing? Answer Date of Assessment Author No 09/15/2015 7:31 AM CDT Jinny Dewey, PATTERN MARKER-OCULARIST * Does person have serious difficulty walking/climbing stairs? Answer Date of Assessment Author No 09/15/2015 7:31 AM CDT Jinny Dewey, PATTERN MARKER-OCULARIST * Does person have difficulty dressing/bathing? Answer Date of Assessment Author No 09/15/2015 7:31 AM CDT Jinny Dewey, PATTERN MARKER-OCULARIST * Does person have difficulty doing errands alone? Answer Date of Assessment Author No 09/15/2015 7:31 AM CDT Jinny Dewey, PATTERN MARKER-OCULARIST documented as of this encounter Mental Status * Does person have difficulty concentrating/remembering/making decisions? Answer Entry Date Author No 09/15/2015 7:31 AM CDT Jinny Dewey, PATTERN MARKER-OCULARIST documented in this encounter Plan of Treatment Upcoming Encounters Date Type Department Care Team (Late st Contact Info) Description 01/27/2025 2:00 PM CDT Office Visit [facility] - Nephrology [address] [place] [phone] 01/27/2025 2:30 PM CDT Office Visit [facility] - GI [address] [place] [phone] Michoacano Agosto MD [address] [place] [address] [place] [address] documented as of this encounter Goals Goal Patient Goal Type Associated Problems Recent Progress Patient-Stated? Author Medication Management General On track( 024 10:39 AM METAL TANK BUILDER) Afshan Flores, RN Note: Expected end date: ongoing Interventions: Take all medications as prescribed Let your doctor know right away about any changes in your medications Make sure to request a refill of your medication at least one week prior to your last dose Safety General On track( 024 10:39 AM METAL TANK BUILDER) No Afshan Perez, RN Note: Expected end [...] Under Investigation 04/03/2024 04/03/2024 04/04/2024 12:04 AM METAL TANK BUILDER documented as of this encounter Care Teams Stationary Engineer Apprentice Relationship Specialty Start Date End Date Alana Christiansen MD [address] [facility] [place] [address] PCP - General 08/18/17 11/20/22 Madeleine Garcia MD [address] [place] [address] PCP - General Family Medicine 11/21/22 Yaritza Mora, RN Carton Repairer 09/25/15 Afshan Perez, RN Registered Nurse Hepatology 09/01/17 Himanshu Steiner MD [address] [facility] [address] [place], [place] [phone] Obstetrics and Gynecology 04/26/18 documented as of this encounter
--- OUTSIDE RECORDS SUMMARY | 2025-01-23 11:46 | XMS_ITS | Encounter Summary ---
Author Organization [facility] Address [address] [place] [address] Care Team Providers Care Bootmaker Hand Name Role Phone Yaritza Mora RN Unavailable [phone] Afshan Perez RN Unavailable Unavailable Himanshu Steiner MD Unavailable [phone] Madeleine Garcia MD Primary Care Provider [phone] Encounter Details Date Type Department Care Team (Late st Contact Info) Description 01/13/2025 Orders Only [facility] - Nephrology [address], [place] [address] Chiquita Oglesby, PINNER PRINTED CIRCUIT BOARDS-BLEACH MACHINE OPERATOR [address] [facility] DIV [place] [address] Nephrolithiasis; S/P liver transplant in 11/29/2015 ([facility]); Long-term use of immunosuppressant [...] and heating? Not hard at all 04/04/2024 [facility] - Occupational [...] place to sleep or slept in a intermediate (including now)? No 03/06/2023 Housing Stability Vital Sign Answer Stas e Recorded In the last 12 months, was t here a time when you were not able to pay the mortgage or rent on time? No 04/04/2024 In the past 12 months, how m any times have you moved where you were living? 1 04/04/2024 At any time in the past 12 m [facility], were you homeless or living in a intermediate (including now)? No 04/04/2024 Comments No Sex [...] Description 01/27/2025 2:00 PM CDT Office Visit [facility] - Nephrology [address] [place] [address] [phone] 01/27/2025 2:30 PM CDT Office Visit [facility] - GI [address] [place] [address] [phone] Michoacano Agosto MD [address] [place] [address] [place] [address] documented as of this encounter Goals Goal Patient Goal Type Associated Problems Recent Progress Patient-Stated? Author Medication Management General On track( 024 10:39 AM ACTIVITY LEADER) No Afshan Perez RN Note: Expected end date: ongoing Interventions: Take all medications as prescribed Let your doctor know right away about any changes in your medications Make sure to request a refill of your medication at least one week prior to your last dose Safety General On track( 024 10:39 AM ACTIVITY LEADER) Afshan Flores, RN Note: Expected end date: ongoing Interventions: Your nurse will assess your risk for falls/injury each visit Be aware of medications that could predispose you to falling Wear non-skid/rubber sole footwear Use some light at night in your room documented as of this encounter Procedures Procedure Name Priority Date/Time Associated Diagnosis Comments URINALYSIS W/MICROSCOPIC NO CULTURE Routine 01/16/2025 8:28 AM CDT Nephrolithiasis S/P liver transplant in 11/29/2015 ([facility]) Long-term use of immunosuppressant medication Vitamin D deficiency Anemia in stage 2 chronic kidney disease TACROLIMUS LEVEL Routine 01/16/2025 8:28 AM CDT Nephrolithiasis S/P liver transplant in 11/29/2015 ([facility]) Long-term use of immunosuppressant medication Vitamin D deficiency Anemia in stage 2 chronic kidney disease CBC W AUTO DIFFERENTIAL Routine 01/16/2025 8:28 AM CDT Nephrolithiasis S/P liver transplant in 11/29/2015 ([facility]) Long-term use of immunosuppressant medication Vitamin D deficiency Anemia in stage 2 chronic kidney disease PROTEIN URINE RANDOM QUANTITATIVE Routine 01/16/2025 8:28 AM CDT Nephrolithiasis S/P liver transplant in 11/29/2015 ([facility]) Long-term use of immunosuppressant medication Vitamin D deficiency Anemia in stage 2 chronic kidney disease COMPREHENSIVE METABOLIC PANEL Routine 01/16/2025 8:28 AM CDT Nephrolithiasis S/P liver transplant in 11/29/2015 ([facility]) Long-term use of immunosuppressant medication Vitamin D deficiency Anemia in stage 2 chronic kidney disease PHOSPHORUS BLOOD Routine 01/16/2025 8:28 AM CDT Nephrolithiasis S/P liver transplant in 11/29/2015 ([facility]/HCC) Long-term use of immunosuppressant medication Vitamin D deficiency Anemia in stage 2 chronic kidney disease MAGNESIUM BLOOD Routine 01/16/2025 8:28 AM CDT Nephrolithiasis S/P liver transplant in 11/29/2015 (CMS/HCC) Long-term use of immunosuppressant medication Vitamin D deficiency Anemia in stage 2 chronic kidney disease CREATININE URINE RANDOM Routine 01/16/2025 8:28 AM CDT Nephrolithiasis S/P liver transplant in 11/29/2015 (CMS/HCC) Long-term use of immunosuppressant medication Vitamin D deficiency Anemia in stage 2 chronic kidney disease documented in this encounter Results * CREATININE URINE RANDOM (01/16/2025 8:28 AM CDT) Creatinine Urine 25 20 - 275 mg/dL [facility] Comment: Test Performed at: [email or web address] [address] LUZ ELENA BERGER MD Urine URINE SPECIMEN OBTAINED BY CLEAN CATCH PROCEDURE / Unknown 01/16/2025 8:28 AM CDT 01/16/2025 8:29 AM CDT [facility] - URINE CHEMISTRY O RDERABLES Final Result Performing Organization Address [facility] Co de Phone Number [address] [address] * (ABNORMAL) PROTEIN URINE RANDOM QUANTITATIVE (01/16/2025 8:28 AM CDT) Protein Random Urine 2(L) 5 - 24 mg/dL [facility] Comment: Test Performed at: [email or web address] [address] LUZ ELENA BERGER MD Urine URINE SPECIMEN OBTAINED BY CLEAN CATCH PROCEDURE / Unknown 01/16/2025 8:28 AM CDT 01/16/2025 8:29 AM CDT us [facility] - URINE CHEMISTRY O RDERABLES Final Result Performing Organization Address City/[facility] de Phone Number [address] [address] * URINALYSIS COMPLETE W MICROSCOPIC (01/16/2025 8:28 AM CDT) Color UA YELLOW YELLOW [facility] Appearance CLEAR CLEAR [facility] Specific [place] UA 1.006 1.001 - 1.035 [facility] pH [...] elements seen were reported. Test Performed at: [email or web address] [address] LUZ ELENA BERGER MD Urine URINE SPECIMEN OBTAINED BY CLEAN CATCH PROCEDURE / Unknown 01/16/2025 8:28 AM CDT 01/16/2025 8:29 AM CDT Chiquita Oglesby [employer] CIRCUIT BOARDS-BLEACH MACHINE OPERATOR LAB - URINALYSIS ORDERA BLES Final Result Performing Organization Address [facility] Co de Phone Number [address] [address] * PHOSPHORUS BLOOD (01/16/2025 8:28 AM CDT) Phosphorus 3.6 2.5 - 4.5 mg/dL [facility] Comment: Test Performed at: [email or web address] [address] LUZ ELENA BERGER MD Blood BLOOD SPECIMEN / Unknown 01/16/2025 8:28 AM CDT 01/16/2025 8:29 AM CDT Chiquita Oglesby [employer] BOARDS-BLEACH MACHINE OPERATOR LAB - CHEMISTRY ORDERAB LES Final Result Performing Organization Address City/[facility]/ZIP Co de Phone Number [address] [address] * MAGNESIUM BLOOD (01/16/2025 8:28 AM CDT) Magnesium 2.0 1.5 - 2.5 mg/dL [facility] Comment: Test Performed at: [email or web address] [address] LUZ ELENA BERGER MD Blood BLOOD SPECIMEN / Unknown 01/16/2025 8:28 AM CDT 01/16/2025 8:29 AM CDT Chiquita Oglesby [employer] BOARDS-BLEACH MACHINE OPERATOR LAB - CHEMISTRY ORDERAB LES Final Result Performing Organization Address [facility] Co de Phone Number [address] [address] * (ABNORMAL) COMPREHENSIVE METABOLIC PANEL (01/16/2025 8:28 AM CDT) Glucose 91 65 - 99 mg/dL [facility] [...] 29 U/L [facility] Comment: Test Performed at: [email or web address] [address] LUZ ELENA BERGER MD Blood BLOOD SPECIMEN / Unknown 01/16/2025 8:28 AM CDT 01/16/2025 8:29 AM CDT Chiquita E Mendel [employer] BOARDS-BLEACH MACHINE OPERATOR LAB - CHEMISTRY ORDERAB LES Final Result [address] [address] * (ABNORMAL) CBC W AUTO DIFFERENTIAL (01/16/2025 8:28 AM CDT) White Blood Cell Count 5.4 3.8 - [...] 0.7 % [facility] Comment: Test Performed at: [email or web address] [address] LUZ ELENA BERGER MD Blood BLOOD SPECIMEN / Unknown 01/16/2025 8:28 AM CDT 01/16/2025 8:29 AM CDT [facility] - HEMATOLOGY ORDERA BLES Final Result Performing Organization Address [facility] de Phone Number [address] [address] * TACROLIMUS LEVEL (01/16/2025 8:28 AM CDT) Tacrolimus 5.9 mcg/L [facility] Comment: No definitive therapeutic or toxic ranges have been established. Optimal blood drug levels are influenced by type of transplant, patient response, time post- transplant, co-administration of other drugs, and drug formulation. The following trough range is a suggested guideline: 5.0-20.0 mcg/L. REPORT COMMENT: FASTING:YES Test Performed at: [facility] [address] [place] [address] LUZ ELENA BERGER MD Blood BLOOD SPECIMEN / Unknown 01/16/2025 8:28 AM CDT 01/16/2025 8:29 AM CDT [facility]lesby [facility] - THERAPEUTIC DRUG MONITORING ORDERABLES Final Result Performing Organization Address [facility] de Phone Number [address] [address] documented in this encounter Visit Diagnoses Diagnosis Nephrolithiasis Calculus of kidney S/P liver transplant in 11/29/2015 ([facility]/HCC) Liver replaced by transplant Long-term use of immunosuppressant medication Encounter for long-term (current) use of other medications Vitamin D deficiency Anemia in stage 2 chronic kidney disease documented in this encounter Care Teams Bootmaker Hand Relationship Specialty Start Date End Date Madeleine Garcia MD [address] [place] [address] PCP - General Family Medicine 11/21/22 Yaritza Mora, RN Card Brusher 09/25/15 Afshan Perez, BEAR Registered Nurse Hepatology 09/01/17 Himanshu Steiner MD [address] [place], [place] [id number] Obstetrics and Gynecology 04/26/18 documented as of this encounter
--- OUTSIDE RECORDS SUMMARY | 2025-01-23 11:46 | XMS_ITS ---
Author Organization [facility] Address [address] [place] [address] Care Team Providers Care Assistant Women'S Rowing Coach Name Role Phone Yaritza Mora RN Unavailable [phone] Afshan Perez RN Unavailable Unavailable Himanshu Steiner MD Unavailable [phone] Madeleine Garcia MD Primary Care Provider [phone] Transplant Episode Kidney Recipient [facility] ([place], [place]) - [facility] Organ Received: Right Kidney Transplanted on 03/04/2023 Marked as Active Follow-up on 03/04/2023 Kidney CoordinatorS NEPH TXP Phone: N/A Fax: N/A Email: N/A [facility] Organ Diagnosis Organ Primary Contributory Kidney Polycystic [...] Care Team Name Role Phone Fax Email [facility] NEPH TXP Kidney Coordinator N/A N/A N/A Luba Tesfaye Handling Tech N/A N/A N/A Zaheer Fernandez MD Referring Physician [phone] N/A Events Post-Transplant Pre-Transplant Admitted: 03/04/2023 Referred: 11/03/2022 Transplanted: 03/04/2023 Evaluation began: 3 Discharged: 03/08/2023 Committee: 01/22/2023 Center waitlisted: 3
== END 2025-01-23 10:28 | disposition home or self-care (01) ==
LOC: ANHFOHIMG 10:28
PROVIDERS: PCP Family Medicine; Visit Provider Obstetrics & Gynecology
DX: Z78.0 Asymptomatic menopausal state (principal); M85.88 Other specified disorders of bone density and structure, other site; M85.852 Other specified disorders of bone density and structure, left thigh; M85.851 Other specified disorders of bone density and structure, right thigh
CPT/HCPCS: 77080

== ENCOUNTER 2025-01-30 08:45 | Outpatient (CLI) | payer OTHER, SELFPAY ==
--- NOTE | ~2025-01-30 | MM_ITS ---
EXAMINATION: MM diagnostic mally BI w chris HISTORY: Inconclusive mammogram TECHNIQUE: Additional 3-D tomosynthesis images of both breasts were performed and synthetic 2-D images were generated. CAD analysis was submitted and interpreted. High resolution bilateral breast ultrasound was performed. COMPARISON: Mammograms from 01/11/2025, 12/07/2023, 12/03/2022 BREAST PARENCHYMAL COMPOSITION: The breasts are extremely dense which lowers the sensitivity of mammography. FINDINGS: MAMMOGRAPHIC FINDINGS: Redemonstration of the focal asymmetry in the right retroareolar region. No sonographic correlate. The finding is probably benign. Redemonstration of asymmetry in the upper left breast, posterior depth, seen in the left MLO projection. No sonographic correlate. The finding is probably benign. ULTRASOUND: No cystic or solid mass identified in the right retroareolar region. No sonographic abnormality in the area of concern in the upper left breast. IMPRESSION: 1. Probably benign findings in both breasts. A bilateral diagnostic mammogram and bilateral diagnostic breast ultrasound in 6 months is recommended. BI-RADS 3-Probably benign-Short interval follow-up suggested. Reviewed, dictated and finalized at location Q. IMPRESSION: 1. Probably benign findings in both breasts. A bilateral diagnostic mammogram a nd bilateral diagnostic breast ultrasound in 6 months is recommended. BI-RADS 3-Probably benign-Short interval follow-up suggested.
--- NOTE | ~2025-01-30 | US_ITS ---
Please see the mammogram report from 01/30/2025 for the combined mammogram and breast ultrasound report for this patient from 01/30/2025. Reviewed, dictated and finalized at location Q.
== END 2025-01-30 08:46 | disposition home or self-care (01) ==
LOC: CHSIMG 08:46
PROVIDERS: PCP Family Medicine; Visit Provider Obstetrics & Gynecology
DX: R92.8 Other abnormal and inconclusive findings on diagnostic imaging of breast (principal)
CPT/HCPCS: 76642; 77062; 77066; G0279